=== PATIENT | female | born 2000 | race Caucasian/White ===

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

== ENCOUNTER → 2018-01-10 11:07 | Outpatient (CLI) | payer MEDICAID, SELFPAY ==
[2018-01-10 12:07] LABS: Basophils # 0.1 K/mm3 (0-0.2); Basophils % 0.5 % (0.1-2.0); Eosinophils % 8.7 % (0.1-12.0); Hematocrit 39.6 % (37.0-47.0); Hemoglobin 12.6 g/dL (12.2-16.2); Lymphocytes # 2.7 K/mm3 (0.7-4.5); Lymphocytes % 24.7 K/mm3 (10-50); Mean Corpuscular HGB Conc 31.8 g/dL (31.8-35.4); Mean Corpuscular Hemoglobin 27.6 pg (27.0-31.2); Mean Corpuscular Volume 86.6 fl (81-99); Mean Platelet Volume 7.7 fl (7.4-10.4); Monocytes # 0.4 K/mm3 (0.1-1.0); Monocytes % 3.6 % (1.7-9.3); Neutrophils # 6.8 K/mm3 (1.8-7.8); Neutrophils % 62.5 % (37.0-80.0); Platelet Count 327 K/mm3 (142-424); Red Blood Count 4.57 M/mm3 (4.20-5.40); Red Cell Distribution Width 13.5 % (11.5-17.5); White Blood Count 10.9 K/mm3 (4.5-13.0)
[2018-01-10 12:25] LABS: Carbon Dioxide 24 mmol/L (21.0-32.0); Chloride 105 mmol/L (98-107); Potassium 4.6 mmoL/L (3.5-5.1); Sodium 141 mmol/L (136-145)
[2018-01-10 12:26] LABS: Alanine Aminotransferase 17 U/L (12-78); Albumin Level 4.1 gm/dL (3.4-5.0); Albumin/Globulin Ratio 1.2 (1.1-1.8); Alkaline Phosphatase 73 U/L (46-116); Anion Gap 16.6 mEq/L (5-15); Aspartate Amino Transferase 10 U/L (15-37); Bilirubin,Total 0.2 mg/dL (0.2-1.0); Blood Urea Nitrogen 7 mg/dL (7-18); C-Reactive Protein < 0.2 mg/L (0.0-0.9); Creatinine,Serum 0.73 mg/dL (0.55-1.02); Estimated Glomerular Filt Rate 103 ml/min (>60); GFR (African American) 124 ML/MIN (>60); Globulin 3.4 gm/dl (1.3-3.2); Glucose 92 mg/dL (74-106); Total Protein,Serum 7.5 gm/dL (6.4-8.2)
== END ==
PROVIDERS: Visit Provider Nurse Practitioner Family
DX: R10.9 Unspecified abdominal pain (principal); K92.1 Melena
CPT/HCPCS: 36415; 80053; 85025; 86140

== ENCOUNTER → 2018-01-15 10:00 | Outpatient (CLI) | payer MEDICAID, SELFPAY ==
[2018-01-18 15:01] LABS: Adenovirus F 40/41, stool Not Detected (NotDetected); Astrovirus Not Detected (NotDetected); Campylobacter Not Detected (NotDetected); Cryptosporidium Not Detected (NotDetected); Cyclospora Cayetanesis Not Detected (NotDetected); Entamoeba histolytica Not Detected (NotDetected); Enteroaggregative E coli Not Detected (NotDetected); Enteropathogenic E coli Not Detected (NotDetected); Enterotoxigenic E coli Not Detected (NotDetected); Giardia lamblia Not Detected (NotDetected); Norovirus Not Detected (NotDetected); Plesimonas Shigalloides, PCR Not Detected (NotDetected); Rotavirus A Not Detected (NotDetected); Salmonella, PCR Not Detected (NotDetected); Sapovirus Not Detected (NotDetected); Shiga-like toxin E coli Not Detected (NotDetected); Shigella Enterovasive E coli Not Detected (NotDetected); Vibrio Cholerae Not Detected (NotDetected); Vibrio, PCR Not Detected (NotDetected); Yersinia Entercolitica, PCR Not Detected (NotDetected)
[2018-01-18 15:04] LABS: Clostridium Difficile A/B, PCR Detected (NotDetected)
== END ==
PROVIDERS: Visit Provider Surgery
DX: K92.1 Melena (principal); R10.13 Epigastric pain
CPT/HCPCS: 87507

== ENCOUNTER → 2019-01-09 09:59 | Outpatient (CLI) | payer MEDICAID, SELFPAY | PROVIDERS: Visit Provider Obstetrics & Gynecology | DX: N39.0 Urinary tract infection, site not specified (principal) | CPT/HCPCS: 87086; 87088; 87186 ==

== ENCOUNTER → 2019-01-15 12:47 | Outpatient (CLI) | payer MEDICAID, SELFPAY ==
--- NOTE | 2019-01-15 12:49 | FL_ITS ---
FL voiding cystourethrogram CLINICAL INDICATION: Urinary retention ITS.REASON: retention ORDERING PHYSICIAN: Michael Noe MD PATIENT AGE: 18 years Comparison: None Fluoroscopy time: 1 minute and 14 seconds FINDINGS: Therapy Director exam is shows a longitudinal lucency in the lower pelvic region consistent with a tampon. No renal or pelvic calcifications apparent. Contrast is instilled through a Parrish catheter. Approximately 250 cc of contrast was instilled. Urinary bladder has an unremarkable appearance. There is no evidence of passive reflux. Post void images show no significant post void residual urine. Voiding images show no evidence of vesicoureteral reflux. IMPRESSION: Negative voiding cystourethrogram. No post void residual urine apparent
== END ==
PROVIDERS: PCP Family Medicine; Visit Provider Obstetrics & Gynecology
DX: R33.9 Retention of urine, unspecified (principal)
CPT/HCPCS: 74455

== ENCOUNTER → 2019-03-12 11:30 | Outpatient (CLI) | payer MEDICAID, SELFPAY ==
[2019-03-12 12:04] LABS: Adenovirus F 40/41, stool Not Detected (NotDetected); Astrovirus Not Detected (NotDetected); Campylobacter Not Detected (NotDetected); Cryptosporidium Not Detected (NotDetected); Cyclospora Cayetanesis Not Detected (NotDetected); Entamoeba histolytica Not Detected (NotDetected); Enteroaggregative E coli Not Detected (NotDetected); Enteropathogenic E coli Not Detected (NotDetected); Giardia lamblia Not Detected (NotDetected); Norovirus Not Detected (NotDetected); Plesimonas Shigalloides, PCR Not Detected (NotDetected); Rotavirus A Not Detected (NotDetected); Salmonella, PCR Not Detected (NotDetected); Sapovirus Not Detected (NotDetected); Shiga-like toxin E coli Not Detected (NotDetected); Shigella Enterovasive E coli Not Detected (NotDetected); Vibrio Cholerae Not Detected (NotDetected); Vibrio, PCR Not Detected (NotDetected); Yersinia Entercolitica, PCR Not Detected (NotDetected)
[2019-03-12 14:48] LABS: Clostridium Difficile A/B, PCR Detected (NotDetected); Enterotoxigenic E coli Detected (NotDetected)
== END ==
PROVIDERS: PCP Nurse Practitioner; Visit Provider Nurse Practitioner
DX: R19.7 Diarrhea, unspecified (principal); A04.72 Enterocolitis due to Clostridium difficile, not specified as recurrent
CPT/HCPCS: 87507

== ENCOUNTER → 2019-04-27 19:59 | Outpatient (CLI) | payer MEDICAID, SELFPAY ==
[2019-04-27 20:20] LABS: Adenovirus F 40/41, stool Not Detected (NotDetected); Astrovirus Not Detected (NotDetected); Campylobacter Not Detected (NotDetected); Cryptosporidium Not Detected (NotDetected); Cyclospora Cayetanesis Not Detected (NotDetected); Entamoeba histolytica Not Detected (NotDetected); Enteroaggregative E coli Not Detected (NotDetected); Enteropathogenic E coli Not Detected (NotDetected); Enterotoxigenic E coli Not Detected (NotDetected); Giardia lamblia Not Detected (NotDetected); Norovirus Not Detected (NotDetected); Plesimonas Shigalloides, PCR Not Detected (NotDetected); Rotavirus A Not Detected (NotDetected); Salmonella, PCR Not Detected (NotDetected); Sapovirus Not Detected (NotDetected); Shiga-like toxin E coli Not Detected (NotDetected); Shigella Enterovasive E coli Not Detected (NotDetected); Vibrio Cholerae Not Detected (NotDetected); Vibrio, PCR Not Detected (NotDetected); Yersinia Entercolitica, PCR Not Detected (NotDetected)
[2019-04-27 22:19] LABS: Clostridium Difficile A/B, PCR Detected (NotDetected)
== END ==
PROVIDERS: PCP Nurse Practitioner Family; Visit Provider Nurse Practitioner Family
DX: R19.7 Diarrhea, unspecified (principal); Z86.19 Personal history of other infectious and parasitic diseases
CPT/HCPCS: 87507

== ENCOUNTER → 2019-09-24 11:13 | Outpatient (CLI) | payer OTHER, SELFPAY ==
--- NOTE | 2019-09-24 12:01 | XR_ITS ---
PROCEDURE: XR LUMBAR SPINE MIN 4V CLINICAL INDICATION: LOW BACK PAIN COMPARISON: No exams were available for comparison FINDINGS: There is straightening/reversal of the normal lordosis which may be due to patient positioning or muscle spasm. No fracture or dislocation. The disc spaces are well preserved. No lytic or blastic change. Unremarkable appearing SI joints IMPRESSION: There is straightening/reversal of the normal lordosis which may be due to patient positioning or muscle spasm. Otherwise negative Dictated by: Jakob Price MD 09/24/2019 12:18 Electronically signed by Jakob Price MD in [place] 09/24/2019 12:18
[2019-09-24 12:06] LABS: Basophils # 0.1 K/mm3 (0-0.2); Basophils % 0.4 % (0.1-2.0); Eosinophils # 0.6 K/mm3 (0.0-0.4); Eosinophils % 5.1 % (0.1-12.0); Hematocrit 41.6 % (37.0-47.0); Hemoglobin 13.7 g/dL (12.2-16.2); Lymphocytes # 2.7 K/mm3 (0.7-4.5); Lymphocytes % 25.3 % (10-50); Mean Corpuscular Hemoglobin 30.2 pg (27.0-31.2); Mean Corpuscular Volume 91.6 fl (81-99); Mean Platelet Volume 7.4 fl (7.4-10.4); Monocytes # 0.5 K/mm3 (0.1-1.0); Monocytes % 4.5 % (1.7-9.3); Neutrophils % 64.8 % (37.0-80.0); Platelet Count 307 K/mm3 (142-424); Red Blood Count 4.54 M/mm3 (4.20-5.40); Red Cell Distribution Width 12.5 % (11.5-17.5); White Blood Count 10.8 K/mm3 (4.5-13.0)
[2019-09-24 13:14] LABS: Alanine Aminotransferase 20 U/L (12-78); Albumin Level 4.3 gm/dL (3.4-5.0); Albumin/Globulin Ratio 1.7 (1.1-1.8); Alkaline Phosphatase 67 U/L (46-116); Amylase 41 U/L (25-115); Anion Gap 13.3 mEq/L (5-15); Aspartate Amino Transferase 11 U/L (15-37); Bilirubin,Total 0.4 mg/dL (0.2-1.0); Blood Urea Nitrogen 8 mg/dL (7-18); Calcium 8.8 mg/dL (8.5-10.1); Carbon Dioxide 27 mmol/L (21.0-32.0); Chloride 104 mmol/L (98-107); Creatinine,Serum 0.69 mg/dL (0.55-1.02); Estimated Glomerular Filt Rate 108 ml/min (>60); GFR (African American) 131 ML/MIN (>60); Globulin 2.5 gm/dl (1.3-3.2); Glucose 88 mg/dL (74-106); Lipase 187 u/L (73-393); Potassium 4.3 mmoL/L (3.5-5.1); Sodium 140 mmol/L (136-145); Total Protein,Serum 6.8 gm/dL (6.4-8.2)
[2019-09-26 11:04] LABS: H. pylori Breath Test Negative (Negative)
== END ==
PROVIDERS: PCP Nurse Practitioner Family; Visit Provider Nurse Practitioner Family
DX: R11.0 Nausea (principal); R14.0 Abdominal distension (gaseous)
CPT/HCPCS: 36415; 72110; 80053; 82150; 83013; 83690; 85025

== ENCOUNTER 2019-10-15 13:45 | Outpatient (RCR) | payer OTHER, SELFPAY ==
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
== END 2019-10-15 13:50 | disposition home or self-care (01) ==
LOC: PT 13:45
PROVIDERS: PCP Nurse Practitioner Family; Visit Provider Nurse Practitioner Family
DX: M54.5 Low back pain (principal)
CPT/HCPCS: 97163

== ENCOUNTER 2019-11-23 11:00 | Outpatient (RCR) | payer OTHER, SELFPAY ==
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
== END 2019-11-23 11:57 | disposition home or self-care (01) ==
LOC: PT 11:00
PROVIDERS: PCP Nurse Practitioner Family; Visit Provider Internal Medicine Adolescent Medicine
DX: M62.830 Muscle spasm of back (principal)
CPT/HCPCS: 20560; 97010; 97014; 97110; 97163; G0283

== ENCOUNTER 2020-01-13 14:09 | Emergency (ER) | payer OTHER, SELFPAY ==
--- NOTE | 2020-01-13 14:23 | XR_ITS ---
PROCEDURE: XR KNEE RT 3V CLINICAL INDICATION: INJURY Posttraumatic pain COMPARISON: No exams were available for comparison FINDINGS: No fracture or dislocation. No lytic or blastic change. There is normal mineralization. The joint spaces are well-preserved. No significant degenerative/arthritic changes. No erosive changes evident. Other findings:None. IMPRESSION: No acute findings. Dictated by: Jakob Price MD 01/13/2020 15:02 Electronically signed by Jakob Price MD in [place] 01/13/2020 15:02
[2020-01-13 14:54] VITALS: BP 110/72; PULSE 94; RESP 18; TEMP 36.7; O2SAT 98; BMI 25.4
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
[2020-01-13 15:29] VITALS: BP 110/72; PULSE 94; RESP 18; TEMP 36.7; O2SAT 98
== END 2020-01-13 15:30 | disposition home or self-care (01) ==
LOC: ER 14:15 → UTC 14:18
PROVIDERS: Emergency Provider Nurse Practitioner Family; PCP Internal Medicine Adolescent Medicine
DX: S83.91XA Sprain of unspecified site of right knee, initial encounter (principal); V86.95XA Unspecified occupant of 3- or 4- wheeled all-terrain vehicle (ATV) injured in nontraffic accident, initial encounter; Y92.89 Other specified places as the place of occurrence of the external cause; F41.8 Other specified anxiety disorders; Z88.0 Allergy status to penicillin; Z88.6 Allergy status to analgesic agent
CPT/HCPCS: 29505; 73562; 99202

== ENCOUNTER → 2020-02-21 13:12 | Outpatient (CLI) | payer OTHER, SELFPAY ==
[2020-02-21 14:25] LABS: Basophils # 0.1 K/mm3 (0-0.2); Basophils % 0.4 % (0.1-2.0); Eosinophils # 0.5 K/mm3 (0.0-0.4); Hematocrit 39.9 % (37.0-47.0); Hemoglobin 13.9 g/dL (12.2-16.2); Lymphocytes # 2.8 K/mm3 (0.7-4.5); Lymphocytes % 24.5 % (10-50); Mean Corpuscular HGB Conc 34.9 g/dL (31.8-35.4); Mean Corpuscular Hemoglobin 32.4 pg (27.0-31.2); Mean Corpuscular Volume 92.8 fl (81-99); Mean Platelet Volume 7.4 fl (7.4-10.4); Monocytes # 0.4 K/mm3 (0.1-1.0); Monocytes % 3.6 % (1.7-9.3); Neutrophils # 7.7 K/mm3 (1.8-7.8); Neutrophils % 67.4 % (37.0-80.0); Platelet Count 256 K/mm3 (142-424); Red Cell Distribution Width 12.8 % (11.5-17.5); White Blood Count 11.5 K/mm3 (4.8-10.8)
[2020-02-21 15:48] LABS: Alanine Aminotransferase 26 U/L (12-78); Albumin Level 4.9 g/dl (3.5-5.0); Alkaline Phosphatase 63 U/L (38-126); Anion Gap 11.3 mEq/L (5-15); Aspartate Amino Transferase 27 U/L (14-36); Bilirubin,Total 0.4 mg/dl (0.2-1.3); Blood Urea Nitrogen 8 mg/dl (7-17); Calcium 9.5 mg/dl (8.4-10.2); Carbon Dioxide 24 mmol/L (22.0-30.0); Chloride 104 mmol/L (98-107); Estimated Glomerular Filt Rate 106 ml/min (>60); GFR (African American) 128 ML/MIN (>60); Globulin 2.5 g/dL (1.3-3.2); Glucose 104 mg/dl (74-100); Lipase 101 U/L (23-300); Potassium 4.3 mmoL/L (3.5-5.1); Sodium 135 mmol/L (136-145); Total Protein,Serum 7.4 g/dl (6.3-8.2)
== END ==
PROVIDERS: Visit Provider Internal Medicine Adolescent Medicine
DX: R10.9 Unspecified abdominal pain (principal)
CPT/HCPCS: 36415; 80053; 83690; 85025

== ENCOUNTER → 2020-02-22 12:47 | Outpatient (CLI) | payer OTHER, SELFPAY ==
[2020-02-22 13:53] LABS: Occult Blood,Stool Positive (Negative)
[2020-02-26 09:53] LABS: H. pylori Stool Ag, EIA Negative (Negative)
== END ==
PROVIDERS: Visit Provider Internal Medicine Adolescent Medicine
DX: R10.9 Unspecified abdominal pain (principal)
CPT/HCPCS: 82272; 87338; G0328

== ENCOUNTER 2020-02-28 19:42 | Observation (INO) | payer OTHER, SELFPAY ==
[2020-02-28 19:53] VITALS: BP 153/73; PULSE 126; RESP 22; TEMP 37.4; O2SAT 100; BMI 23.4
[2020-02-28 20:05] LABS: Microscopic, Urine URINE MICROSCOPIC (MICROSCOPIC)
[2020-02-28 20:12] LABS: Appearance,Urine CLEAR (Clear); Bilirubin,Urine Negative (Negative); Blood, Urine Negative (Negative); Chloride 104 mmol/L (98-107); Color,Urine YELLOW (Yellow); Glucose,Urine (UA) Negative (Negative); Ketones,Urine Negative (Negative); Leukocyte Esterase,Urine Negative (Negative); Nitrate,Urine Negative (Negative); Potassium 3.6 mmoL/L (3.5-5.1); Protein,Urine Negative (Negative); Sodium 139 mmol/L (136-145); Specific Gravity, Urine 1.015 (1.005-1.030); Urobilinogen,Urine 0.2 EU/dl (0.2)
[2020-02-28 20:13] LABS: Basophils # 0.1 K/mm3 (0-0.2); Basophils % 0.3 % (0.1-2.0); Eosinophils # 0.4 K/mm3 (0.0-0.4); Eosinophils % 1.8 % (0.1-12.0); Hematocrit 45.5 % (37.0-47.0); Hemoglobin 15.4 g/dL (12.2-16.2); Lymphocytes # 3.3 K/mm3 (0.7-4.5); Lymphocytes % 14.7 % (10-50); Mean Corpuscular HGB Conc 33.9 g/dL (31.8-35.4); Mean Corpuscular Hemoglobin 31.7 pg (27.0-31.2); Mean Corpuscular Volume 93.4 fl (81-99); Mean Platelet Volume 7.3 fl (7.4-10.4); Monocytes # 0.9 K/mm3 (0.1-1.0); Monocytes % 4.1 % (1.7-9.3); Neutrophils # 17.8 K/mm3 (1.8-7.8); Neutrophils % 79.1 % (37.0-80.0); Platelet Count 324 K/mm3 (142-424); Red Blood Count 4.87 M/mm3 (4.20-5.40); Red Cell Distribution Width 12.9 % (11.5-17.5); White Blood Count 22.5 K/mm3 (4.8-10.8)
[2020-02-28 20:15] LABS: Alanine Aminotransferase 121 U/L (12-78); Alkaline Phosphatase 83 U/L (38-126); Amylase 69 U/L (30-110); Anion Gap 12.6 mEq/L (5-15); Aspartate Amino Transferase 203 U/L (14-36); Bilirubin,Total 0.7 mg/dl (0.2-1.3); Blood Urea Nitrogen 10 mg/dl (7-17); Calcium 9.5 mg/dl (8.4-10.2); Carbon Dioxide 26 mmol/L (22.0-30.0); Creatinine Clearance Estimated 112 mL/min (50-200); Estimated Glomerular Filt Rate 91 ml/min (>60); GFR (African American) 110 ML/MIN (>60); Glucose 107 mg/dl (74-100); Lipase 176 U/L (23-300); Urine Pregnancy, HCG Qual. Negative (Negative)
[2020-02-28 20:16] LABS: Albumin/Globulin Ratio 1.6 (1.1-1.8); Globulin 3.2 g/dL (1.3-3.2); Total Protein,Serum 8.2 g/dl (6.3-8.2)
[2020-02-28 20:17] LABS: MANUAL DIFFERENTIAL MANUAL DIFFERENTIAL (MANUAL DIFF)
[2020-02-28 20:24] LABS: Amphetamine/Metha Screen,Urine Negative ng/ml (<1000); Benzodiazepines Screen,Urine Negative ng/ml (<200)
[2020-02-28 20:25] LABS: Barbiturates Screen,Urine Negative ng/ml (<200)
[2020-02-28 20:26] LABS: Cannabinoid Screen,Urine Negative ng/ml (<50); Cocaine Screen,Urine Negative ng/ml (<300)
[2020-02-28 20:27] LABS: Methadone Screen,Urine Negative ng/ml (<300)
--- NOTE | 2020-02-28 20:27 | CT_ITS ---
PROCEDURE: CT ABDOMEN PELVIS W CON CLINICAL INDICATION: mid uppergatric pain Mid upper abdominal pain with diarrhea COMPARISON: ABDPELW CT ABD PELVIS W/ CONTRAST from 12/15/2016 US ABDOMEN LIMITED from 02/28/2020 TECHNIQUE: IV Contrast: 75ML OPTIRAY 350 Oral Contrast none Axial images obtained with sagittal and coronal reformats. All CT scans at the facility use one or more dose reduction, viz: automated exposure control, ma/kV adjustment per patient size (including targeted exams where dose is matched to indication, i.e. head), or iterative reconstruction technique. FINDINGS: LOWER THORAX: No acute finding ABDOMEN & PELVIS: The liver, spleen, adrenal glands, pancreas, and kidneys have an unremarkable appearance. There is gallbladder wall thickening versus pericholecystic fluid. There is enhancement of the gallbladder wall. There is a small irregular focus along the gallbladder wall anteriorly nonspecific. Common hepatic duct is slightly prominent upper normal at 6 mm. No intestinal obstruction or free air. No evidence of appendicitis. There is scattered small nodes in the abdomen which are nonspecific there is cystic lesion in the right adnexa measuring 5.1 by 3 cm. There is a small amount fluid in the cul-de-sac. No acute bony anomalies. IMPRESSION: 1. Gallbladder wall thickening and/or pericholecystic fluid with mural enhancement and minimal irregularity of the gallbladder wall with common hepatic duct upper normal at 6 mm. Consider gallbladder ultrasound for further evaluation. 2. Cystic right adnexal lesion at 5 cm consistent with ovarian cyst Dictated by: Jakob Price MD 02/29/2020 06:00 Electronically signed by Jakob Price MD in [place] 02/29/2020 06:00
[2020-02-28 20:28] LABS: Opiate Screen,Urine Negative ng/ml (<300); Phencyclidine Screen,Urine Negative ng/ml (<25)
--- NOTE | 2020-02-28 20:31 | HMH.EDABDPAI ---
ED Disposition Clinical Impression: Gastroenteritis, Esophageal reflux disease, Choledocholithiasis Disposition: Admitted as Observation Condition on Discharge: Good - Critical Care Critical Care Time: No Attestation: On 02/28/20, the high probability of a clinically significant, sudden or life threatening deterioration of the following system(s) required my full and direct attention, intervention and personal management. The time I documented below is in addition to time spent performing reported procedures but includes the following listed in this critical care notation. Medical Decision Making - Medical Records Medical records reviewed: Yes: I reviewed the patient's medical records. - Naun Inquiry Pt receiving controlled substance: No Vital Signs: 02/28/20 19:53 02/28/20 21:00 02/28/20 22:03 Temperature 99.4 F Temperature Source Oral Pulse Rate Pulse Rate [Right] 126 H 110 H 105 H Respiratory Rate 22 16 16 Blood Pressure Blood Pressure [Right Arm] 153/73 H 147/68 H 132/71 Blood Pressure Mean [Right Arm] 99 94 91 Blood Pressure Source [Right Arm] Automatic Cuff Automatic Cuff Automatic Cuff Blood Pressure Position Blood Pressure Position [Right Arm] Sitting Sitting Sitting 02 Sat by Pulse Oximetry 100 100 99 Oxygen Delivery Method Room Air Room Air Room Air 02/28/20 22:46 02/28/20 23:19 02/28/20 23:20 Temperature 99.2 F 99.2 F Temperature Source Oral Oral Pulse Rate 75 Pulse Rate [Right] 97 H 75 Respiratory Rate 16 16 16 Blood Pressure 118/40 L Blood Pressure [Right Arm] 138/71 118/40 L Blood Pressure Mean [Right Arm] 93 66 Blood Pressure Source [Right Arm] Automatic Cuff Automatic Cuff Blood Pressure Position Supine Blood Pressure Position [Right Arm] Sitting Supine 02 Sat by Pulse Oximetry 98 100 Oxygen Delivery Method Room Air Room Air Room Air - Lab Data Lab results reviewed: Yes: I reviewed the patient's lab results. Lab Results 02/28/20 19:55: Urine Color Yellow, Urine Appearance Clear, Urine pH 7.0, Ur Specific [place] 1.015, Urine Protein Negative, Urine Glucose (UA) Negative, Urine Ketones Negative, Urine Blood Negative, Urine Nitrate Negative, Urine Bilirubin Negative, Urine Urobilinogen 0.2, Ur Leukocyte Esterase Negative, Urine WBC Occasional, Ur Squamous Epith Cells 3-5, Urine Bacteria Trace 02/28/20 19:55: WBC 22.5 H*, RBC 4.87, Hgb 15.4, Hct 45.5, MCV 93.4, MCH 31.7 H, MCHC 33.9, RDW 12.9, Plt Count 324, MPV 7.3 L, Neut % (Auto) 79.1, Lymph % (Auto) 14.7, [place] % (Auto) 4.1, Eos % (Auto) 1.8, Baso % (Auto) 0.3, Neut # (Auto) 17.8 H, Lymph # (Auto) 3.3, [place] # (Auto) 0.9, Eos # (Auto) 0.4, Baso # (Auto) 0.1, Total Counted 100, Neutrophils % (Manual) 71, Lymphocytes % (Manual) 27, Monocytes % (Manual) 1 L, Eosinophils % (Manual) 1, Platelet Estimate Normal, RBC Morphology Normal 02/28/20 19:55: Sodium 139, Potassium 3.6, Chloride 104, Carbon Dioxide 26, Anion Gap 12.6, BUN 10, Creatinine 0.80, Estimated Creat Clear 112, Estimated GFR 91, Est GFR ( Amer) 110, Glucose 107 H, Calcium 9.5, Total Bilirubin 0.7, AST 203 H, ALT 121 H, Alkaline Phosphatase 83, Total Protein 8.2, Albumin 5.0, Globulin 3.2, Albumin/Globulin Ratio 1.6, Amylase 69, Lipase 176 02/28/20 19:55: Urine Opiates Screen Negative, Urine Methadone Screen Negative, Ur Barbituates Screen Negative, Ur Phencyclidine Scrn Negative, Ur Amphetamines Screen Negative, U Benzodiazepines Scrn Negative, Urine Cocaine Screen Negative, U Marijuana (THC) Screen Negative 02/28/20 19:55: Urine HCG, Qual Negative 02/28/20 21:00: Lactate 1.0 Result diagrams: 02/28/20 19:55 02/28/20 19:55 Orders (Tests/Meds): ED MEDICATIONS Generic Name Dose Route Start Last Admin Trade Name Freq PRN Reason Stop Dose Admin Sodium Chloride 1,000 mls @ 999 mls/hr 02/28/20 20:30 02/28/20 20:40 Sod Chlor 0.9% 1000ml Bag IV 02/28/20 21:30 999 mls/hr .Q1H1M KATARINA Administration Pantoprazole Sodium 80 mg/ 100 mls @ 10
[2020-02-28 20:33] LABS: Bacteria,Urine Trace /lpf; WBC,Urine Occasional #/hpf (0-3)
[2020-02-28 20:51] LABS: Eosinophils % 1 % (0-3); Lymphocytes % 27 % (10-50); Monocytes % 1 % (2-9); Neutrophils % 71 % (42-76); Platelet Estimate Normal; RBC Morphology Normal; Total Cells Counted 100
[2020-02-28 21:00] VITALS: BP 147/68; PULSE 110; RESP 16; O2SAT 100
[2020-02-28 22:03] VITALS: BP 132/71; PULSE 105; RESP 16; O2SAT 99
--- NOTE | 2020-02-28 22:16 | US_ITS ---
PROCEDURE: US ABDOMEN LIMITED CLINICAL INDICATION: RUQ abd pain COMPARISON: CT ABDOMEN PELVIS W CON from 02/28/2020 FINDINGS: PANCREAS: Unremarkable. No obvious mass or abnormal fluid collection. No ductal dilatation LIVER: No focal liver lesions demonstrated. Homogeneous echogenicity. No intrahepatic biliary ductal dilatation evident. There is appropriate direction of blood flow within a non dilated portal vein RIGHT KIDNEY: Unremarkable. Normal size and echogenicity. No hydronephrosis GALLBLADDER: Gallbladder wall is thickened measuring up to 5 mm with minimal pericholecystic fluid. No gallstones are apparent. Common bile duct is upper normal at 6 mm.. IMPRESSION: Mild gallbladder wall thickening with minimal pericholecystic fluid. No obvious gallstones. Common bile duct upper normal at 6 mm Dictated by: Jakob Price MD 02/29/2020 06:02 Electronically signed by Jakob Price MD in [place] 02/29/2020 06:02
[2020-02-28 22:46] VITALS: BP 138/71; PULSE 97; RESP 16; O2SAT 98
--- NOTE | 2020-02-28 22:59 | PC.NURSE ---
Dr Estes speaking with Dr Cox for consult
[2020-02-28 23:19] VITALS: BP 118/40; PULSE 75; RESP 16; TEMP 37.3; O2SAT 100
[2020-02-28 23:20] VITALS: BP 118/40; PULSE 75; RESP 16; TEMP 37.3; O2SAT 100
[2020-02-28 23:26] LABS: Coronavirus 19 IgG Antibody Negative (Negative); Coronavirus 19 IgM Antibody Negative (Negative)
[2020-02-29] VITALS (27 sets, daily range): BP systolic 93–126; BP diastolic 48–90; PULSE 69–106; RESP 14–18; TEMP 36.4–43; O2SAT 96–100; BMI 23.4; BMI 23.5
--- NOTE | 2020-02-29 00:07 | PC.NURSE ---
Addendum entered by Ayse Lynch CNA 02/29/20 02:56: CORRECTION- PT ARRIVED TO THE FLOOR @ 0004 Original Note: PT ARRIVED TO THE FLOOR VIA W/C FROM ED @ 1345. .
--- NOTE | 2020-02-29 02:43 | PC.NURSE ---
She is NPO at this time. Currently asleep but previously received PRN medication for mid-epigastric pain. She reported nausea but denied vomiting. No BM this shift.
[2020-02-29 06:34] LABS: Basophils # 0.1 K/mm3 (0-0.2); Basophils % 0.4 % (0.1-2.0)
[2020-02-29 06:36] LABS: Chloride 107 mmol/L (98-107); Potassium 4.3 mmoL/L (3.5-5.1); Sodium 136 mmol/L (136-145)
[2020-02-29 06:39] LABS: Alanine Aminotransferase 196 U/L (12-78); Albumin Level 4.2 g/dl (3.5-5.0); Albumin/Globulin Ratio 1.7 (1.1-1.8); Alkaline Phosphatase 79 U/L (38-126); Anion Gap 9.3 mEq/L (5-15); Aspartate Amino Transferase 168 U/L (14-36); Bilirubin,Total 0.7 mg/dl (0.2-1.3); Blood Urea Nitrogen 10 mg/dl (7-17); Carbon Dioxide 24 mmol/L (22.0-30.0); Creatinine Clearance Estimated 112 mL/min (50-200); Estimated Glomerular Filt Rate 91 ml/min (>60); GFR (African American) 110 ML/MIN (>60); Globulin 2.5 g/dL (1.3-3.2); Glucose 94 mg/dl (74-100); Total Protein,Serum 6.7 g/dl (6.3-8.2)
[2020-02-29 06:43] LABS: Eosinophils # 0.5 K/mm3 (0.0-0.4); Eosinophils % 3.2 % (0.1-12.0); Hematocrit 39.5 % (37.0-47.0); Lymphocytes # 2.9 K/mm3 (0.7-4.5); Lymphocytes % 19.5 % (10-50); Mean Corpuscular HGB Conc 33.8 g/dL (31.8-35.4); Mean Corpuscular Hemoglobin 31.8 pg (27.0-31.2); Mean Corpuscular Volume 94.1 fl (81-99); Mean Platelet Volume 7.4 fl (7.4-10.4); Monocytes # 0.6 K/mm3 (0.1-1.0); Monocytes % 4.1 % (1.7-9.3); Neutrophils % 72.8 % (37.0-80.0); Platelet Count 276 K/mm3 (142-424); Red Blood Count 4.19 M/mm3 (4.20-5.40); Red Cell Distribution Width 12.7 % (11.5-17.5); White Blood Count 15.1 K/mm3 (4.8-10.8)
[2020-02-29 06:52] LABS: Calcium 8.3 mg/dl (8.4-10.2)
[2020-02-29 06:53] LABS: Hemoglobin 13.4 g/dL (12.2-16.2)
[2020-02-29 06:55] LABS: MANUAL DIFFERENTIAL MANUAL DIFFERENTIAL (MANUAL DIFF)
--- NOTE | 2020-02-29 06:58 | HMH.HP ---
*Admission Date: 02/29/20 *Chief complaint: Upper abdominal pain *History of present illness: This is a 19-year-old female who presents emergency department late yesterday evening with increasing upper abdominal pain. Her pain is mostly in the epigastric region. Some nausea. No fevers. No jaundice. Evaluation in the emergency department included a CT scan followed by right upper quadrant ultrasound confirming changes consistent with acute cholecystitis. No obvious stones were noted. Her white blood cell count was also notably elevated and she was admitted for IV antibiotics and surgical evaluation/management. [facility] History Medical History: Reports:: Anxiety, Depression Denies:: Cancer, Diabetes Mellitus Type 1, Diabetes Mellitus Type 2, Hypertension, Internal Pacemaker, MRSA, Seizures *Have you ever received a pneumonia vaccine?: Yes *Have you received a flu vaccine this season?: No Other Medical History: Reports: Other. Denies: Blood Transfusion Reaction Laterality Cases: Bilateral: Myringotomy (Ear Tubes), Tonsillectomy Other Surgeries: Yes: No Previous Surgery, , Other. No: Pacemaker Amputation: No Fractures: No - *Social History Educational Level: Completed High School Smoking Status: Former smoker Tobacco Type: cigarettes # Packs/Day (cigarettes): 1 #Yrs smoked (if former smoker): 20 Alcohol Intake: never Alcohol Intake Frequency:: other Substance Use Type: denies use *Occupational Status:: unemployed Housing: house Household Members: spouse *Travel in the last 8 weeks: None - Psychiatric History Pschychiatric History:: Reports:: Anxiety, Bipolar Disorder, Depression Family Hx:: Cancer, Diabetes, Heart Attack, Hyperlipidemia, Hypertension, Stroke, Thyroid Disorder, Substance abuse, Alcoholism, Mental illness Review of Systems - Constitutional Denies chills - Eyes Denies change in vision - ENT Denies dizziness - *Cardiovascular Denies chest pain - *Respiratory Denies cough - *Gastrointestinal Reports abdominal pain, Reports nausea - *Genitourinary Denies abnormal vaginal bleeding, Denies difficulty urinating - *Musculoskeletal Denies joint pain - Integumentary/Breasts Denies changing lesions - *Neurologic Denies abnormal hearing - Psychiatric Denies anxiety - Endocrine Denies cold intolerance - Hematologic/Lymphatic Denies easy bleeding - Allergic/Immunologic Denies GI upset with certain foods Meds Home Medications Medication Instructions Recorded Confirmed Type ARIPiprazole [Abilify 20mg Tablet] 20 mg PO DAILY 02/28/20 02/29/20 History Mirtazapine [Remeron 15mg tablet] 15 mg PO HS 02/28/20 02/29/20 History Omeprazole [Omeprazole 20mg Tab] 20 mg PO DAILY 02/28/20 02/29/20 History Sertraline HCl [Zoloft] 50 mg PO DAILY 02/28/20 02/29/20 History Allergies Allergy/AdvReac Type Severity Reaction Status Date / Time penicillin G [PENICILLIN G] Allergy Intermediate Hives Verified 02/29/20 00:38 ibuprofen [From MOTRIN] Allergy Mild I-HIVES Verified 02/29/20 00:38 Exam Vital signs and Labs for Last 24 Hours: Temp Pulse Resp BP Pulse Ox 98.2 F 83 16 113/70 99 02/29/20 03:45 02/29/20 03:45 02/29/20 03:45 02/29/20 03:45 02/29/20 03:45 Laboratory Results - last 24 hr 02/28/20 19:55: Urine Color Yellow, Urine Appearance Clear, Urine pH 7.0, Ur Specific [place] 1.015, Urine Protein Negative, Urine Glucose (UA) Negative, Urine Ketones Negative, Urine Blood Negative, Urine Nitrate Negative, Urine Bilirubin Negative, Urine Urobilinogen 0.2, Ur Leukocyte Esterase Negative, Urine WBC Occasional, Ur Squamous Epith Cells 3-5, Urine Bacteria Trace 02/28/20 19:55: WBC 22.5 H*, RBC 4.87, Hgb 15.4, Hct 45.5, MCV 93.4, MCH 31.7 H, MCHC 33.9, RDW 12.9, Plt Count 324, MPV 7.3 L, Neut % (Auto) 79.1, Lymph % (Auto) 14.7, [place] % (Auto) 4.1, Eos % (Auto) 1.8, Baso % (Auto) 0.3, Neut # (Auto) 17.8 H, Lymph # (Auto) 3.3, [place] # (Auto) 0.9, Eos # (Auto) 0.4, Baso # (Auto
--- NOTE | 2020-02-29 07:26 | P.CONPHA_ITS ---
[facility] Pharmacy VTE Monitoring - Patient Demographics Admission date: 02/28/20 Report Date: 02/29/20 Time: 07:26 Allergies/Adverse Reactions: Patient Allergies penicillin G [PENICILLIN G] Allergy (Intermediate, Verified 02/29/20 00:38) Hives ibuprofen [From MOTRIN] Allergy (Mild, Verified 02/29/20 00:38) I-HIVES Height: 1.65 m Weight: 63.957 kg Patient Problems: Current Active Problems Gastroenteritis (Acute) Esophageal reflux disease (Acute) Choledocholithiasis (Acute) Cholecystitis (Acute) - VTE Risk Labs: VTE Related Lab Results Hgb 13.4 g/dL (12.2-16.2) D 02/29/20 06:08 Hct 39.5 % (37.0-47.0) 02/29/20 06:08 Plt Count 276 K/mm3 (142-424) 02/29/20 06:08 BUN 10 mg/dl (7-17) 02/29/20 06:08 Creatinine 0.80 mg/dl (0.52-1.04) 02/29/20 06:08 Estimated Creat Clear 112 mL/min (50-200) 02/29/20 06:08 Was VTE Risk Assessment Performed: Yes VTE Score: 0 VTE Risk Level: Very Low Risk - Prophylaxis VTE Prophylaxis Ordered?: Yes Types of VTE Prophylaxis: TEDS Knee High Location of Applied Device: Bilateral Lower Extremeties - VTE Diagnosis Confirmed Treatment or plan recommended: Continue Current Treatment
[2020-02-29 07:58] LABS: Eosinophils % 2 % (0-3); Lymphocytes % 20 % (10-50); Monocytes % 4 % (2-9); Neutrophils % 74 % (42-76); Platelet Estimate Normal; RBC Morphology Normal; Total Cells Counted 100
--- NOTE | 2020-02-29 09:36 | HMH.PHAINT ---
MEDICATION RECONCILIATION COMPLETED ON PATIENT USING EXTERNAL FILL HISTORY FROM PHARMACY, PATIENT INTERVIEW, AND LIST FROM MD OFFICE. -NATALIA PIPERD
--- NOTE | 2020-02-29 10:41 | PC.NURSE ---
PT OFF FLOOR WITH SURGERY STAFF.
--- NOTE | 2020-02-29 11:49 | P.PN_ITS ---
[facility] Anesthesia Checklist - Patient Identification Patient Identification: Arm Band - Structural Data Admitted From: Home Planned Operative Procedure/s: laparoscopic cholecystectomy Consent for Planned Operative Procedure(s) Verified: Yes Verified Documents: Surgical Consent, History and Physical - NPO Status Verified Time NPO: 00:00 - Additional verifications Anesthesia Reactions: No Hx Blood Transfusions: No Blood Transfusion Reaction: No - Airway Assessment C-Spine Mobility Assessed: Yes (mp2) TMJ Mobility Assessed: Yes - Neurological Assessment Level of Consciousness: Awake, Alert - Anesthesia Plan Anesthesia Risk discussed: Yes Anesthesia Plan: Verified ASA Class: II Anesthesia Type: General [facility] History I have reviewed the patient's past medical history: Yes Medical History: Reports:: Anxiety, Depression Denies:: Cancer, Diabetes Mellitus Type 1, Diabetes Mellitus Type 2, Hypertension, Internal Pacemaker, MRSA, Seizures *Have you ever received a pneumonia vaccine?: Yes *Have you received a flu vaccine this season?: No Other Medical History: Reports: Other. Denies: Blood Transfusion Reaction Anesthesia experience/problems:: nac Laterality Cases: Bilateral: Myringotomy (Ear Tubes), Tonsillectomy Other Surgeries: Yes: , Other. No: Pacemaker Amputation: No Fractures: No - *Social History Educational Level: Completed High School Smoking Status: Former smoker Tobacco Type: cigarettes # Packs/Day (cigarettes): 1 #Yrs smoked (if former smoker): 20 Alcohol Intake: never Alcohol Intake Frequency:: other Substance Use Type: denies use *Occupational Status:: unemployed Housing: house Household Members: spouse *Travel in the last 8 weeks: None - Psychiatric History Pschychiatric History:: Reports:: Anxiety, Bipolar Disorder, Depression Family Hx:: Cancer, Diabetes, Heart Attack, Hyperlipidemia, Hypertension, Stroke, Thyroid Disorder, Substance abuse, Alcoholism, Mental illness
--- NOTE | 2020-02-29 12:19 | HMH.OPNOTE ---
Date of procedure: 02/29/20 Pre-op Diagnosis:: Acute cholecystitis Post-op Diagnosis:: Same Procedure performed:: Laparoscopic cholecystectomy Surgeon:: Jonas Bethea MD PROPERTY PRESERVATION SPECIALIST:: Tristan Monge Anesthesia: GINA Estimated blood loss (mL): 15 Operative findings:: Mild to moderate gallbladder distention Moderate wall thickening Inflammatory response with mild to moderate weeping Operative note:: After informed consent was obtained, the patient was taken to the operating room and placed in the supine position. General anesthesia was induced and the abdomen was prepped and draped in a sterile fashion. After infiltration with local anesthetic an infraumbilical incision was made. A Veress needle was placed in position. The abdomen was insufflated. A 5 mm optical trocar was placed in position. Under direct visualization, a 12 mm trocar was placed in the subxiphoid position and 2 additional 5 mm trocars were placed in the right upper quadrant. The gallbladder was elevated up and over the liver margin. The tissue around the cystic duct was carefully dissected. 3 clips were placed proximally and the duct was transected with harmonic noe. Harmonic noe were then utilized to dissect the gallbladder away from the liver margin with careful attention to the control of the cystic artery. The gallbladder was placed in a retrieval bag and removed through the subxiphoid trocar site. The right upper quadrant was thoroughly irrigated. No active bleeding or bile leak was noted. Fascia at the subxiphoid trocar site was reapproximated utilizing 0 Ethibond. The remaining trocars were removed. All wounds were irrigated and skin was closed with 4-0 Monocryl in a subcuticular fashion. Steri-Strips were applied. The patient's anesthetic agents were reversed and extubation was completed prior to transfer to recovery in stable condition. Condition: stable Disposition: PACU Specimens:: Gallbladder and contents Complications:: No immediate
--- NOTE | 2020-02-29 12:30 | P.PN_ITS ---
[facility] Anesthesia Record Part I Intake, IV Amount: 1,000 Estimated blood loss (mL): 15 Urine output (mL): 0 Blood Pressure: 104/54 SaO2: 96 Pulse Rate: 81 Respiratory Rate: 16 Temperature: 97.5 F Patient is:: Drowsy, Stable Stable to PACU at:: 12:25
--- NOTE | 2020-02-29 18:22 | PC.NURSE ---
pt has done ok since surgery. dressings are clean and dry and have old drainage noted. pt has c/o pain t/o shift with acceptable relief from prn pain medication. pt has tolerated diet well. no c/o nausea. vss. will cont. to monitor.
--- NOTE | 2020-02-29 19:10 | PC.NURSE ---
report given to claribel
--- NOTE | 2020-02-29 20:10 | P.PN_ITS ---
[facility] Anesthesia Record Part II Discharge Time: 13:14 Destination: Medical Surgical Department PACU nurse assessment reviewed?: Yes Patient Condition:: Good Anesthesia Complications:: None Swallowing reflex intact?: Yes Cyanosis?: No Blood Pressure: 113/54 Pulse Rate: 92 Temperature: 97.5 F Mental Status: Alert & Oriented Pain level:: 5 Nausea and/or vomitting:: None Intake, IV Amount: 0
--- NOTE | 2020-02-29 21:57 | PC.NURSE ---
Assessment completed. Lungs CTA, Heart at RRR. Bowels sounds present X4 Quads. Telfa and tegaderm x4 on abdomen C/D/I. No edema noted. Pt. passing flatus and burping. Pt. c/o pain at incision sites rated 8/10 and pain in her neck that is relieved after burping, but occurs frequently. Pain medication given, see EMAR. Pt. denies needs, will continue to monitor.
--- NOTE | 2020-02-29 22:45 | PC.NURSE ---
Pt. back to bed after shower. Pt. tolerated shower well. Clean linens in place on bed Pt. reports pain in neck is back but incisional pain is better and pt. is having trouble belching. Pt. requests medication for gas pain. None ordered nurse informed pt. she can notify . Pt. v/u and denies further needs
[2020-03-01] VITALS: BP 106/68; PULSE 81; RESP 18; TEMP 36.8; O2SAT 98
--- NOTE | 2020-03-01 03:10 | PC.NURSE ---
Reassment completed. No acute changes from last assessment. Lungs CTA, Heart at RRR. Bowel sounds present x4 quadrants. Telfa and tegaderm X4 C/D/I. no new drainage noted. Pt. rates incisional pain at 8/10. Pt. denies neck pain. See EMAR for medications. Pt. denies further needs, will continue to monitor.
[2020-03-01 04:00] VITALS: BP 114/56; PULSE 91; RESP 18; TEMP 37.1; O2SAT 100
[2020-03-01 05:00] VITALS: BMI 23.9
[2020-03-01 06:58] LABS: Basophils % 0.1 % (0.1-2.0); Eosinophils # 0.3 K/mm3 (0.0-0.4); Eosinophils % 1.2 % (0.1-12.0); Hematocrit 35.2 % (37.0-47.0); Hemoglobin 12.2 g/dL (12.2-16.2); Lymphocytes # 2.2 K/mm3 (0.7-4.5); Lymphocytes % 10.8 % (10-50); Mean Corpuscular HGB Conc 34.6 g/dL (31.8-35.4); Mean Corpuscular Hemoglobin 31.4 pg (27.0-31.2); Mean Corpuscular Volume 90.7 fl (81-99); Mean Platelet Volume 8.2 fl (7.4-10.4); Monocytes # 0.6 K/mm3 (0.1-1.0); Monocytes % 2.9 % (1.7-9.3); Neutrophils # 17.6 K/mm3 (1.8-7.8); Neutrophils % 84.9 % (37.0-80.0); Platelet Count 268 K/mm3 (142-424); Red Blood Count 3.88 M/mm3 (4.20-5.40); Red Cell Distribution Width 12.9 % (11.5-17.5); White Blood Count 20.8 K/mm3 (4.8-10.8)
[2020-03-01 07:03] LABS: Chloride 107 mmol/L (98-107); Sodium 137 mmol/L (136-145)
[2020-03-01 07:04] LABS: Potassium 3.9 mmoL/L (3.5-5.1)
[2020-03-01 07:06] LABS: Alanine Aminotransferase 148 U/L (12-78); Albumin Level 3.8 g/dl (3.5-5.0); Albumin/Globulin Ratio 1.6 (1.1-1.8); Alkaline Phosphatase 73 U/L (38-126); Anion Gap 10.9 mEq/L (5-15); Aspartate Amino Transferase 69 U/L (14-36); Bilirubin,Total 0.3 mg/dl (0.2-1.3); Blood Urea Nitrogen 6 mg/dl (7-17); Calcium 8.2 mg/dl (8.4-10.2); Carbon Dioxide 23 mmol/L (22.0-30.0); Creatinine Clearance Estimated 152 mL/min (50-200); Estimated Glomerular Filt Rate 126 ml/min (>60); GFR (African American) 153 ML/MIN (>60); Globulin 2.4 g/dL (1.3-3.2); Glucose 181 mg/dl (74-100); Total Protein,Serum 6.2 g/dl (6.3-8.2)
[2020-03-01 07:13] LABS: MANUAL DIFFERENTIAL MANUAL DIFFERENTIAL (MANUAL DIFF)
[2020-03-01 07:31] LABS: Hep A Ab, IgM Negative (Negative); Hepatitis B Core Antibody IgM Negative (Negative); Hepatitis B Surface Antigen Negative (Negative)
[2020-03-01 07:33] VITALS: O2SAT 100
[2020-03-01 07:53] LABS: Lymphocytes % 20 % (10-50); Monocytes % 3 % (2-9); Neutrophils % 77 % (42-76); Platelet Estimate Normal; RBC Morphology Normal; Total Cells Counted 100
[2020-03-01 08:00] VITALS: BP 108/55; PULSE 82; RESP 14; TEMP 36.7; O2SAT 97
--- NOTE | 2020-03-01 09:10 | HMH.GSPN ---
Subjective Patient reports: feels better Narrative: Patient tearful this morning because she adamantly wants to go home. She states that she feels much better and wants to go home. She has been tolerating a bland diet without difficulty. Exam Vital signs and Labs for Last 24 Hours: Temp Pulse Resp BP Pulse Ox 98.0 F 82 14 108/55 L 97 03/01/20 08:00 03/01/20 08:00 03/01/20 08:00 03/01/20 08:00 03/01/20 08:00 Laboratory Results - last 24 hr 03/01/20 06:30: WBC 20.8 H* D, RBC 3.88 L, Hgb 12.2, Hct 35.2 L, MCV 90.7, MCH 31.4 H, MCHC 34.6, RDW 12.9, Plt Count 268, MPV 8.2, Neut % (Auto) 84.9 H, Lymph % (Auto) 10.8, [place] % (Auto) 2.9, Eos % (Auto) 1.2, Baso % (Auto) 0.1, Neut # (Auto) 17.6 H, Lymph # (Auto) 2.2, [place] # (Auto) 0.6, Eos # (Auto) 0.3, Baso # (Auto) 0.0, Total Counted 100, Neutrophils % (Manual) 77 H, Lymphocytes % (Manual) 20, Monocytes % (Manual) 3, Platelet Estimate Normal, RBC Morphology Normal 03/01/20 06:30: Sodium 137, Potassium 3.9, Chloride 107, Carbon Dioxide 23, Anion Gap 10.9, BUN 6 L D, Creatinine 0.60 D, Estimated Creat Clear 152, Estimated GFR 126, Est GFR ( Amer) 153 D, Glucose 181 H, Calcium 8.2 L, Total Bilirubin 0.3, AST 69 H D, ALT 148 H, Alkaline Phosphatase 73, Total Protein 6.2 L, Albumin 3.8, Globulin 2.4, Albumin/Globulin Ratio 1.6 I & O for Last 24 hours: Intake & Output 02/27/20 02/28/20 02/29/20 03/01/20 11:59 11:59 11:59 11:59 Intake Total 1095 / 1095 2260 / 2260 Balance 1095 / 1095 2260 / 2260 Weight 141 lb 143 lb 9 oz - *Routine Abdominal Exam Present: soft Progress Note: A&P (1) Cholecystitis Status: Acute Current Visit: Yes Assessment and Plan for All Diagnoses:: Discharge home with additional 5 days of oral antibiotics due to leukocytosis.
--- NOTE | 2020-03-01 09:16 | HMH.DCSUM ---
General - General Admission date:: 02/29/20 Discharge date: 03/01/20 HPI HPI: This is a 19-year-old female who presents emergency department late yesterday evening with increasing upper abdominal pain. Her pain is mostly in the epigastric region. Some nausea. No fevers. No jaundice. Evaluation in the emergency department included a CT scan followed by right upper quadrant ultrasound confirming changes consistent with acute cholecystitis. No obvious stones were noted. Her white blood cell count was also notably elevated and she was admitted for IV antibiotics and surgical evaluation/management. Hospital Course Hospital Course: Patient was taken to the operating room. She underwent laparoscopic cholecystectomy. She was found to have the following findings:Mild to moderate gallbladder distention, Moderate wall thickening, Inflammatory response with mild to moderate weeping . She remained an inpatient postoperatively and was continued on levofloxacin and metronidazole. She was given a full liquid diet. She consumed a full liquid diet with impunity. She did have some minor gas pains but overall felt much better. In the late evening she was requesting her diet be advanced and this was advanced to bland diet. She consumed significant amount of bland diet without any difficulty. The following morning she was feeling much better and was somewhat tearful desiring to go home adamantly. She was doing well with her diet and vital signs were within normal limits. Interestingly her white blood cell count remained somewhat elevated at 20,000. Therefore plan was made for discharge home on the continuation of oral antibiotics with close outpatient surgical follow-up. Objective Vital signs: Temp Pulse Resp BP Pulse Ox 98.0 F 82 14 108/55 L 97 03/01/20 08:00 03/01/20 08:00 03/01/20 08:00 03/01/20 08:00 03/01/20 08:00 Results Labs on day of discharge: Labs from last 24 hours 03/01/20 03/01/20 06:30 06:30 WBC 20.8 H* D RBC 3.88 L Hgb 12.2 Hct 35.2 L MCV 90.7 MCH 31.4 H MCHC 34.6 RDW 12.9 Plt Count 268 MPV 8.2 Neut % (Auto) 84.9 H Lymph % (Auto) 10.8 [place] % (Auto) 2.9 Eos % (Auto) 1.2 Baso % (Auto) 0.1 Neut # (Auto) 17.6 H Lymph # (Auto) 2.2 [place] # (Auto) 0.6 Eos # (Auto) 0.3 Baso # (Auto) 0.0 Total Counted 100 Neutrophils % (Manual) 77 H Lymphocytes % (Manual) 20 Monocytes % (Manual) 3 Platelet Estimate Normal RBC Morphology Normal Sodium 137 Potassium 3.9 Chloride 107 Carbon Dioxide 23 Anion Gap 10.9 BUN 6 L D Creatinine 0.60 D Estimated Creat Clear 152 Estimated GFR 126 Est GFR ( Amer) 153 D Glucose 181 H Calcium 8.2 L Total Bilirubin 0.3 AST 69 H D ALT 148 H Alkaline Phosphatase 73 Total Protein 6.2 L Albumin 3.8 Globulin 2.4 Albumin/Globulin Ratio 1.6 DS: Diagnosis - Discharge Diagnosis (1) Cholecystitis Status: Acute Discharge Plan - Patient Discharge Instructions ACTIVITY: No heavy lifting DIET: advance to your usual diet Patient Instructions: Gallstones, Fat-Restricted Diet, Gastroesophageal Reflux Disease -- Adolescent, DI for Viral Gastroenteritis -- Adult, DI for Bacterial Gastroenteritis -- Adult, Gastroenteritis Diet - Follow up Plan Follow up with: Jonas Bethea MD [Staff Physician] - 1 week Disposition: Home, Self-Assisted Medications: Home Medications Medication Instructions Recorded Confirmed Type ARIPiprazole [Abilify 20mg Tablet] 20 mg PO DAILY 02/28/20 02/29/20 History Mirtazapine [Remeron 15mg tablet] 15 mg PO HS 02/28/20 02/29/20 History Sertraline HCl [Zoloft] 50 mg PO DAILY 02/28/20 02/29/20 History Omeprazole [Omeprazole 40mg 40 mg PO DAILY 02/29/20 02/29/20 History Capsule] Propranolol HCl 10 - 20 mg PO BIDP PRN 02/29/20 02/29/20 History Hydrocod/Acet 5/325 mg [[place] 1 - 2 tab PO Q6HP PRN #17 tab 03/01/20
[2020-03-01 09:27] LABS: Hepatitis C Antibody <0.1 s/co ratio (0.0-0.9)
[2020-03-02 13:08] LABS: Hep A Ab, IgM Negative (Negative); Hepatitis B Core Antibody IgM Negative (Negative); Hepatitis B Surface Antigen Negative (Negative)
[2020-03-02 18:27] LABS: Hepatitis C Antibody <0.1 s/co ratio (0.0-0.9)
== END 2020-03-01 10:15 | disposition home or self-care (01) ==
LOC: ER 22:42 → 2ND 23:27
PROVIDERS: Family Medicine; Surgery; Admitting Provider Surgery; Emergency Provider Emergency Medicine; PCP Internal Medicine Adolescent Medicine; Visit Provider Surgery
PROC: 0FT44ZZ Resection of Gallbladder, Percutaneous Endoscopic Approach (ICD-10-PCS; CPT 47562; principal; 2020-02-29 11:00)
DX: K81.0 Acute cholecystitis (principal)
CPT/HCPCS: 47562; 36415; 74177; 76705; 80053; 80074; 80305; 81001; 81025; 82150; 83605; 83690; 85007; 85025; 86328; 87040; 88304; 96365; 96366; 99284; G0378; J1956; J2405; J2710; Q9967

== ENCOUNTER 2020-03-03 17:34 | Emergency (ER) | payer OTHER, SELFPAY ==
[2020-03-03 17:36] VITALS: BP 138/88; PULSE 110; RESP 18; TEMP 36.8; O2SAT 96; BMI 23.3
[2020-03-03 18:06] VITALS: BP 120/58; PULSE 91; RESP 18; O2SAT 99
[2020-03-03 18:07] LABS: Microscopic, Urine URINE MICROSCOPIC (MICROSCOPIC)
[2020-03-03 18:11] LABS: Basophils # 0.1 K/mm3 (0-0.2); Basophils % 0.5 % (0.1-2.0); Eosinophils # 0.4 K/mm3 (0.0-0.4); Eosinophils % 3.1 % (0.1-12.0); Hematocrit 45.3 % (37.0-47.0); Hemoglobin 15.4 g/dL (12.2-16.2); Lymphocytes # 1.8 K/mm3 (0.7-4.5); Mean Corpuscular Hemoglobin 30.8 pg (27.0-31.2); Mean Corpuscular Volume 90.7 fl (81-99); Mean Platelet Volume 7.3 fl (7.4-10.4); Monocytes # 0.6 K/mm3 (0.1-1.0); Monocytes % 4.5 % (1.7-9.3); Neutrophils # 9.4 K/mm3 (1.8-7.8); Platelet Count 311 K/mm3 (142-424); Red Cell Distribution Width 12.7 % (11.5-17.5); White Blood Count 12.3 K/mm3 (4.8-10.8)
--- NOTE | 2020-03-03 18:14 | HMH.EDGENADL ---
ED Disposition Clinical Impression: Elevated liver enzymes Vomiting Qualifiers: Vomiting type: unspecified Vomiting Intractability: non-intractable Nausea presence: with nausea Qualified Code(s): R11.2 - Nausea with vomiting, unspecified Diarrhea Qualifiers: Diarrhea type: unspecified type Qualified Code(s): R19.7 - Diarrhea, unspecified Disposition: Home, Self-Care Condition on Discharge: Fair Instructions: DI for Diarrhea and Traveler's Diarrhea -- Adult, DI for Nausea -- Adult Additional Instructions: Do not take Orestes or unek-asn-bjdkopd acetaminophen. Do not drink alcohol. See Dr. Bethea in the office tomorrow. Call at 8 AM to schedule appointment. Tramadol as needed for pain. Zofran as needed for nausea and vomiting. Follow-up with primary care provider this week as well, call tomorrow to make appointment. Outpatient diarrhea panel. Prescriptions: Tramadol HCl [Tramadol 50mg Tab] 50 mg PO Q6HP PRN #10 tab PRN Reason: Moderate Pain Transmission Status: Received by [facility] Ondansetron [Zofran 4mg ODT] 4 mg PO TIDP PRN #10 tab.rapdis PRN Reason: Nausea And Vomiting Transmission Status: Received by [facility] Referrals: Augustin Locke MD [Primary Care Provider] - - Critical Care Critical Care Time: No Attestation: On 03/03/20, the high probability of a clinically significant, sudden or life threatening deterioration of the following system(s) required my full and direct attention, intervention and personal management. The time I documented below is in addition to time spent performing reported procedures but includes the following listed in this critical care notation. Medical Decision Making - Medical Records Medical records reviewed: Yes: I reviewed the patient's medical records. - Naun Inquiry Pt receiving controlled substance: No Vital Signs: 03/03/20 17:36 03/03/20 18:06 03/03/20 18:36 Temperature 98.3 F Temperature Source Oral Pulse Rate [Radial] 110 H 91 H 83 Respiratory Rate 18 18 18 Blood Pressure [Right Arm] 138/88 120/58 L 108/54 L Blood Pressure Mean [Right Arm] 104 78 72 Blood Pressure Source [Right Arm] Automatic Cuff Blood Pressure Position [Right Arm] Sitting 02 Sat by Pulse Oximetry 96 99 100 Oxygen Delivery Method Room Air Room Air Room Air 03/03/20 19:06 03/03/20 19:42 Temperature Temperature Source Pulse Rate [Radial] 85 81 Respiratory Rate 18 18 Blood Pressure [Right Arm] 106/56 L 132/51 L Blood Pressure Mean [Right Arm] 72 78 Blood Pressure Source [Right Arm] Blood Pressure Position [Right Arm] 02 Sat by Pulse Oximetry 100 100 Oxygen Delivery Method Room Air Room Air - Lab Data Lab results reviewed: Yes: I reviewed the patient's lab results. Lab Results 03/03/20 17:35: WBC 12.3 H D, RBC 5.00 D, Hgb 15.4, Hct 45.3, MCV 90.7, MCH 30.8, MCHC 34.0, RDW 12.7, Plt Count 311, MPV 7.3 L, Neut % (Auto) 77.0, Lymph % (Auto) 15.0, [place] % (Auto) 4.5, Eos % (Auto) 3.1, Baso % (Auto) 0.5, Neut # (Auto) 9.4 H, Lymph # (Auto) 1.8, [place] # (Auto) 0.6, Eos # (Auto) 0.4, Baso # (Auto) 0.1 03/03/20 17:35: Sodium 138, Potassium 4.2, Chloride 100, Carbon Dioxide 26, Anion Gap 16.2 H, BUN 8 D, Creatinine 0.60, Estimated Creat Clear 149, Estimated GFR 126, Est GFR ( Amer) 153, Glucose 100, Calcium 9.4 D, Total Bilirubin 2.6 H, AST 431 H* D, ALT 452 H*, Alkaline Phosphatase 177 H, Total Protein 8.4 H D, Albumin 5.2 H, Globulin 3.2, Albumin/Globulin Ratio 1.6 03/03/20 17:35: Urine HCG, Qual Negative 03/03/20 17:35: Monoscreen Negative 03/03/20 17:35: Acetaminophen < 10 L 03/03/20 17:39: Amylase 46, Lipase 154 03/03/20 17:59: Urine Color Yellow, Urine Appearance Clear, Urine pH 7.5, Ur Specific [place] 1.015, Urine Protein Negative, Urine Glucose (UA) Negative, Urine Ketones Trace, Urine Blood Negative, Urine Nitrate Negative, Urine Bilirubin Negative, Urine Urobilinogen 0.2, Ur Leukocyte Esterase Negative, Urine WBC 3-5
[2020-03-03 18:19] LABS: Chloride 100 mmol/L (98-107); Potassium 4.2 mmoL/L (3.5-5.1); Sodium 138 mmol/L (136-145)
[2020-03-03 18:22] LABS: Alanine Aminotransferase 452 U/L (12-78); Albumin Level 5.2 g/dl (3.5-5.0); Albumin/Globulin Ratio 1.6 (1.1-1.8); Alkaline Phosphatase 177 U/L (38-126); Anion Gap 16.2 mEq/L (5-15); Aspartate Amino Transferase 431 U/L (14-36); Bilirubin,Total 2.6 mg/dl (0.2-1.3); Blood Urea Nitrogen 8 mg/dl (7-17); Carbon Dioxide 26 mmol/L (22.0-30.0); Creatinine Clearance Estimated 149 mL/min (50-200); Estimated Glomerular Filt Rate 126 ml/min (>60); GFR (African American) 153 ML/MIN (>60); Globulin 3.2 g/dL (1.3-3.2); Glucose 100 mg/dl (74-100); Total Protein,Serum 8.4 g/dl (6.3-8.2)
--- NOTE | 2020-03-03 18:24 | CT_ITS ---
PROCEDURE: CT ABDOMEN PELVIS W CON CLINICAL INDICATION: post blanco vomiting, elev LFTs Nausea and vomiting status post cholecystectomy with elevated LFTs COMPARISON: CT ABDOMEN PELVIS W CON from 02/28/2020 TECHNIQUE: IV Contrast: 75ML OPTIRAY 350 Oral Contrast none Axial images obtained with sagittal and coronal reformats. All CT scans at the facility use one or more dose reduction, viz: automated exposure control, ma/kV adjustment per patient size (including targeted exams where dose is matched to indication, i.e. head), or iterative reconstruction technique. FINDINGS: LOWER THORAX: No acute finding ABDOMEN & PELVIS: Post cholecystectomy changes. The liver, spleen, adrenal glands, and pancreas have an unremarkable appearance. Status post cholecystectomy with no evidence of biloma. Postsurgical changes are present involving the abdominal wall with minimal amount of air within the abdominal wall musculature. No intestinal obstruction or free air. No evidence of appendicitis. There are fluid-filled loops of large and small bowel with a few air-fluid levels within the large bowel which could reflect diarrhea or low-grade colitis. There is a small amount fluid in the pelvis. There is a 4 cm right ovarian cyst. No acute bony findings. IMPRESSION: 1. Status post cholecystectomy. No evidence of biloma. 2. Air-fluid levels within the colon which may be seen with diarrhea or low-grade colitis 3. 4 cm right ovarian cyst with small amount fluid in the cul-de-sac Dictated by: Jakob Price MD 03/04/2020 07:33 Electronically signed by Jakob Price MD in [place] 03/04/2020 07:33
[2020-03-03 18:27] LABS: Appearance,Urine CLEAR (Clear); Bilirubin,Urine Negative (Negative); Blood, Urine Negative (Negative); Color,Urine YELLOW (Yellow); Glucose,Urine (UA) Negative (Negative); Ketones,Urine TRACE (Negative); Leukocyte Esterase,Urine Negative (Negative); Nitrate,Urine Negative (Negative); PH,Urine 7.5 (5.0-8.5); Protein,Urine Negative (Negative); Specific Gravity, Urine 1.015 (1.005-1.030); Urobilinogen,Urine 0.2 EU/dl (0.2)
[2020-03-03 18:30] LABS: Urine Pregnancy, HCG Qual. Negative (Negative)
[2020-03-03 18:36] VITALS: BP 108/54; PULSE 83; RESP 18; O2SAT 100
[2020-03-03 18:43] LABS: Amylase 46 U/L (30-110); Lipase 154 U/L (23-300)
[2020-03-03 18:45] LABS: Calcium 9.4 mg/dl (8.4-10.2)
[2020-03-03 18:46] LABS: Bacteria,Urine Trace /lpf
[2020-03-03 19:06] VITALS: BP 106/56; PULSE 85; RESP 18; O2SAT 100
--- NOTE | 2020-03-03 19:15 | PC.NURSE ---
received report from nancy zurita
--- NOTE | 2020-03-03 19:20 | PC.NURSE ---
dr mcdowell paged
--- NOTE | 2020-03-03 19:22 | PC.NURSE ---
on phone with dr mcdowell
--- NOTE | 2020-03-03 19:31 | PC.NURSE ---
on phone with dr mcdowell
[2020-03-03 19:37] LABS: Monoscreen (Rapid) Negative (Negative)
--- NOTE | 2020-03-03 19:39 | PC.NURSE ---
pt doesn't want admission. dr mcdowell notified.
[2020-03-03 19:42] VITALS: BP 132/51; PULSE 81; RESP 18; O2SAT 100
--- NOTE | 2020-03-03 19:50 | PC.NURSE ---
called to assess for acetaminophen results
[2020-03-03 19:51] LABS: Acetaminophen < 10 ug/ml (10-30)
[2020-03-03 19:58] VITALS: BP 120/61; PULSE 80; RESP 16; TEMP 36.8; O2SAT 99
[2020-03-03 20:21] LABS: Ethyl Alcohol < 10 mg/dl (0-10)
== END 2020-03-03 20:21 | disposition home or self-care (01) ==
PROVIDERS: Emergency Provider Emergency Medicine; PCP Internal Medicine Adolescent Medicine
DX: R19.7 Diarrhea, unspecified (principal); R94.5 Abnormal results of liver function studies; N83.201 Unspecified ovarian cyst, right side; F41.8 Other specified anxiety disorders; Z88.0 Allergy status to penicillin; Z87.891 Personal history of nicotine dependence
CPT/HCPCS: 74177; 80053; 80329; 81001; 81025; 82150; 83690; 85025; 86318; 96365; 99284; Q9967

== ENCOUNTER → 2020-03-04 14:37 | Outpatient (CLI) | payer OTHER, SELFPAY ==
[2020-03-04 14:42] LABS: Adenovirus F 40/41, stool Not Detected (NotDetected); Astrovirus Not Detected (NotDetected); Campylobacter Not Detected (NotDetected); Clostridium Difficile A/B, PCR Not Detected (NotDetected); Cryptosporidium Not Detected (NotDetected); Cyclospora Cayetanesis Not Detected (NotDetected); Entamoeba histolytica Not Detected (NotDetected); Enteroaggregative E coli Not Detected (NotDetected); Enteropathogenic E coli Not Detected (NotDetected); Enterotoxigenic E coli Not Detected (NotDetected); Giardia lamblia Not Detected (NotDetected); Norovirus Not Detected (NotDetected); Plesimonas Shigalloides, PCR Not Detected (NotDetected); Rotavirus A Not Detected (NotDetected); Salmonella, PCR Not Detected (NotDetected); Sapovirus Not Detected (NotDetected); Shiga-like toxin E coli Not Detected (NotDetected); Shigella Enterovasive E coli Not Detected (NotDetected); Vibrio Cholerae Not Detected (NotDetected); Vibrio, PCR Not Detected (NotDetected); Yersinia Entercolitica, PCR Not Detected (NotDetected)
== END ==
PROVIDERS: Visit Provider Emergency Medicine
DX: R19.7 Diarrhea, unspecified (principal); R11.2 Nausea with vomiting, unspecified
CPT/HCPCS: 87507

== ENCOUNTER → 2020-03-05 15:34 | Outpatient (CLI) | payer OTHER, SELFPAY ==
[2020-03-05 16:12] LABS: Basophils # 0.1 K/mm3 (0-0.2); Basophils % 0.4 % (0.1-2.0); Eosinophils # 0.5 K/mm3 (0.0-0.4); Hematocrit 42.9 % (37.0-47.0); Hemoglobin 14.4 g/dL (12.2-16.2); Lymphocytes # 2.7 K/mm3 (0.7-4.5); Lymphocytes % 23.5 % (10-50); Mean Corpuscular HGB Conc 33.5 g/dL (31.8-35.4); Mean Corpuscular Hemoglobin 31.2 pg (27.0-31.2); Mean Corpuscular Volume 93.1 fl (81-99); Mean Platelet Volume 7.3 fl (7.4-10.4); Monocytes # 0.6 K/mm3 (0.1-1.0); Monocytes % 5.1 % (1.7-9.3); Neutrophils # 7.8 K/mm3 (1.8-7.8); Platelet Count 301 K/mm3 (142-424); Red Blood Count 4.61 M/mm3 (4.20-5.40); White Blood Count 11.7 K/mm3 (4.8-10.8)
[2020-03-05 17:05] LABS: Alanine Aminotransferase 270 U/L (12-78); Albumin Level 4.8 g/dl (3.5-5.0); Albumin/Globulin Ratio 1.9 (1.1-1.8); Alkaline Phosphatase 141 U/L (38-126); Anion Gap 17.9 mEq/L (5-15); Aspartate Amino Transferase 130 U/L (14-36); Bilirubin,Total 0.6 mg/dl (0.2-1.3); Blood Urea Nitrogen 11 mg/dl (7-17); Calcium 9.7 mg/dl (8.4-10.2); Carbon Dioxide 24 mmol/L (22.0-30.0); Chloride 101 mmol/L (98-107); Estimated Glomerular Filt Rate 126 ml/min (>60); GFR (African American) 153 ML/MIN (>60); Globulin 2.5 g/dL (1.3-3.2); Glucose 117 mg/dl (74-100); Potassium 3.9 mmoL/L (3.5-5.1); Sodium 139 mmol/L (136-145); Total Protein,Serum 7.3 g/dl (6.3-8.2)
== END ==
PROVIDERS: Visit Provider Internal Medicine Adolescent Medicine
DX: K75.9 Inflammatory liver disease, unspecified (principal)
CPT/HCPCS: 36415; 80053; 85025

== ENCOUNTER 2020-04-18 14:17 | Emergency (ER) | payer OTHER, SELFPAY ==
[2020-04-18 15:58] VITALS: BP 120/72; PULSE 79; RESP 20; TEMP 36.8; O2SAT 99; BMI 23.4
--- NOTE | 2020-04-18 16:24 | HMH.EDUTC ---
[facility] Disposition Clinical Impression: Viral syndrome Disposition: Home, Self-Care Condition on Discharge: Good Instructions: Preventing the Spread of Coronavirus Discharge Instructions Additional Instructions: You have been tested for COVID19. These results typically take 48-72 hours. Please act as if you are positive and quarantine yourself until results are available. Prescriptions: Brompheniramine/Pseudoephed/Dm [Bromfed Dm Cough Syrup] 10 ml PO Q46H 10 Days #180 ml Transmission Status: Pending to [facility] Referrals: Augustin Locke MD [Primary Care Provider] - Time of Disposition: 16:27 Medical Decision Making - Naun Inquiry Pt receiving controlled substance: No Vital Signs: 04/18/20 15:58 Temperature 98.2 F Temperature Source Oral Pulse Rate [Right Brachial] 79 Respiratory Rate 20 Blood Pressure [Right Arm] 120/72 Blood Pressure Mean [Right Arm] 88 Blood Pressure Source [Right Arm] Automatic Cuff Blood Pressure Position [Right Arm] Sitting 02 Sat by Pulse Oximetry 99 Oxygen Delivery Method Room Air Orders (Tests/Meds): ORDERS Category Date Time Status SARS-CoV-2, ESTHER ([place]) Stat Lab 04/18/20 16:02 Ordered [facility] HPI - General Stated complaint: cough; stuffy nose, Time Seen by Provider: 04/18/20 16:25 Mode of Arrival: Ambulatory Source of Information: Patient Limitations: No Limitations Description of Symptoms (Recalled from Triage Doc. by RN): PATIENT C/O SOA, HEADACHE, LOWER ABDOMINAL PAIN, DIARRHEA, FEVER, AND MUSCLE ACHES X 1 WEEK HEENT Symptoms (Recalled from RN notes): Yes Resp Symptoms (Recalled from RN notes): Yes Skin Symptoms (Recalled from RN notes): No MS Symptoms (Recalled from RN notes): No Functional Status (Recalled from RN notes): WNL - History of Present Illness Provider Complaint: Cough, congestion, sore throat, drainage, SOA, chest pain, abdominal pain and diarrhea X 1 week. Low grade fever. Onset (ago): week(s) (1) Relieving factors: none Exacerbating factors: none Associated symptoms: cough, fever/chills Treatments prior to arrival: none - Related Data Previous Rx's Medication Instructions Recorded Brompheniramine/Pseudoephed/Dm 10 ml PO Q46H 10 Days #180 ml 04/18/20 [Bromfed Dm Cough Syrup] Allergies Allergy/AdvReac Type Severity Reaction Status Date / Time penicillin G [PENICILLIN G] Allergy Intermediate Hives Verified 03/11/20 09:26 ibuprofen [From MOTRIN] Allergy Mild I-HIVES Verified 03/11/20 09:26 - Worker's Comp Is this a Worker's Comp case?: No [facility] History - Hepatitis A Screen Drug use history?: No High risk sexual behaviors?: No History of sexually transmitted infection?: No Currently employed?: No Childcare worker?: No Do you have indoor plumbing?: Yes Do you have electricity?: Yes Attestation statement:: This patient has been screened for Hepatitis A risk factors. Medical History: Reports:: Anxiety, Depression, Gastroesophageal Reflux Disease(GERD) Denies:: Cancer, Diabetes Mellitus Type 1, Diabetes Mellitus Type 2, Hypertension, Internal Pacemaker, MRSA, Seizures Other Medical History: Reports: Other. Denies: Blood Transfusion Reaction Comment: Anxiety. Depression. Bi-Polar. ADHD Laterality Cases: Bilateral: Myringotomy (Ear Tubes), Tonsillectomy Other Surgeries: Yes: No Previous Surgery, Cholecystectomy, , Other. No: Pacemaker Amputation: No Fractures: No Comment: Ear tubes as child. T&A-2005. Primary C/S--10/21/2017 - Social History Smoking Status: Current every day smoker Tobacco Type: cigarettes # Packs/Day (cigarettes): 1 #Yrs smoked (if former smoker): 20 Alcohol Intake: never Alcohol Intake Frequency:: other Substance Use Type: denies use Occupational Status: other Housing: house Household Members: spouse - Psychiatric History Pschychiatric History:: Reports:: Anxiety, Bipolar Disorder, Depression Family Hx:: Cancer, Diabetes, Heart Attack, Hyperlipidemia, Hy
[2020-04-18 16:36] VITALS: BP 120/72; PULSE 79; RESP 20; TEMP 36.8; O2SAT 99
[2020-04-20 09:51] LABS: Covid-19 Nasal PCR Sendout UK Not Detected
== END 2020-04-18 16:42 | disposition home or self-care (01) ==
PROVIDERS: Emergency Provider Physician Assistant; PCP Internal Medicine Adolescent Medicine
DX: B34.9 Viral infection, unspecified (principal); F41.8 Other specified anxiety disorders; K21.9 Gastro-esophageal reflux disease without esophagitis; F17.210 Nicotine dependence, cigarettes, uncomplicated; Z88.0 Allergy status to penicillin
CPT/HCPCS: 99201; U0003

== ENCOUNTER → 2020-05-09 16:14 | Outpatient (CLI) | payer OTHER, SELFPAY ==
[2020-05-09 16:19] LABS: Microscopic, Urine URINE MICROSCOPIC (MICROSCOPIC)
[2020-05-09 16:36] LABS: Appearance,Urine CLEAR (Clear); Bilirubin,Urine Negative (Negative); Blood, Urine Negative (Negative); Color,Urine YELLOW (Yellow); Glucose,Urine (UA) Negative (Negative); Ketones,Urine Negative (Negative); Leukocyte Esterase,Urine Negative (Negative); Nitrate,Urine Negative (Negative); Protein,Urine Negative (Negative); Specific Gravity, Urine 1.025 (1.005-1.030); Urobilinogen,Urine 0.2 EU/dl (0.2)
[2020-05-09 16:43] LABS: Basophils # 0.1 K/mm3 (0-0.2); Basophils % 0.7 % (0.1-2.0); Eosinophils # 0.7 K/mm3 (0.0-0.4); Eosinophils % 5.6 % (0.1-12.0); Lymphocytes # 3.5 K/mm3 (0.7-4.5); Lymphocytes % 30.6 % (10-50); Mean Corpuscular HGB Conc 34.1 g/dL (31.8-35.4); Mean Corpuscular Hemoglobin 30.9 pg (27.0-31.2); Mean Corpuscular Volume 90.4 fl (81-99); Mean Platelet Volume 7.4 fl (7.4-10.4); Monocytes # 0.5 K/mm3 (0.1-1.0); Monocytes % 4.3 % (1.7-9.3); Neutrophils # 6.8 K/mm3 (1.8-7.8); Neutrophils % 58.7 % (37.0-80.0); Platelet Count 321 K/mm3 (142-424); Red Blood Count 4.54 M/mm3 (4.20-5.40); Red Cell Distribution Width 12.7 % (11.5-17.5); White Blood Count 11.5 K/mm3 (4.8-10.8)
[2020-05-09 16:49] LABS: Chloride 107 mmol/L (98-107)
[2020-05-09 16:50] LABS: Potassium 3.8 mmoL/L (3.5-5.1); Sodium 139 mmol/L (136-145)
[2020-05-09 16:52] LABS: Alanine Aminotransferase 31 U/L (12-78); Alkaline Phosphatase 62 U/L (38-126); Amylase 62 U/L (30-110); Anion Gap 13.8 mEq/L (5-15); Aspartate Amino Transferase 36 U/L (14-36); Bilirubin,Total 0.3 mg/dl (0.2-1.3); Blood Urea Nitrogen 8 mg/dl (7-17); Carbon Dioxide 22 mmol/L (22.0-30.0); Estimated Glomerular Filt Rate 126 ml/min (>60); GFR (African American) 153 ML/MIN (>60)
[2020-05-09 16:53] LABS: Albumin Level 4.4 g/dl (3.5-5.0); Albumin/Globulin Ratio 1.8 (1.1-1.8); Calcium 9.4 mg/dl (8.4-10.2); Globulin 2.4 g/dL (1.3-3.2); Glucose 103 mg/dl (74-100); Lipase 105 U/L (23-300); Total Protein,Serum 6.8 g/dl (6.3-8.2)
[2020-05-09 16:59] LABS: Bacteria,Urine Trace /lpf; Mucus,Urine Trace /lpf; RBC,Urine Occasional #/hpf (0-3); Squamous Epithelial Cell,Urine Occasional #/hpf (0-5); WBC,Urine Occasional #/hpf (0-3)
[2020-05-09 17:13] LABS: HCG,Quantitative < 2 mIU/ml (0-5.42)
[2020-05-09 17:23] LABS: Thyroid Stimulating Hormone 1.57 uIU/mL (0.465-4.68)
[2020-05-11 12:48] LABS: Hep A Ab, IgM Negative (Negative); Hepatitis B Core Antibody IgM Negative (Negative); Hepatitis B Surface Antigen Negative (Negative)
[2020-05-11 15:11] LABS: Hepatitis C Antibody <0.1 s/co ratio (0.0-0.9)
== END ==
PROVIDERS: Visit Provider Internal Medicine Adolescent Medicine
DX: N91.2 Amenorrhea, unspecified (principal); R10.84 Generalized abdominal pain; K92.1 Melena
CPT/HCPCS: 36415; 80053; 80074; 81001; 82150; 83690; 84443; 84702; 85025

== ENCOUNTER 2020-05-11 11:52 | Emergency (ER) | payer OTHER, SELFPAY ==
[2020-05-11 11:53] VITALS: BP 117/62; PULSE 95; RESP 17; TEMP 37.5; O2SAT 99; BMI 24.1
[2020-05-11 12:11] VITALS: BMI 24.1
[2020-05-11 12:25] LABS: Microscopic, Urine URINE MICROSCOPIC (MICROSCOPIC)
[2020-05-11 12:27] LABS: Appearance,Urine CLEAR (Clear); Bilirubin,Urine Negative (Negative); Blood, Urine Negative (Negative); Color,Urine YELLOW (Yellow); Glucose,Urine (UA) Negative (Negative); Ketones,Urine Negative (Negative); Leukocyte Esterase,Urine Negative (Negative); Nitrate,Urine Negative (Negative); PH,Urine 6.5 (5.0-8.5); Protein,Urine Negative (Negative); Specific Gravity, Urine 1.025 (1.005-1.030); Urobilinogen,Urine 0.2 EU/dl (0.2)
--- NOTE | 2020-05-11 12:27 | CT_ITS ---
Procedure: CT ABDOMEN PELVIS W CON Referring Doctor: Lalo Wakefield Patient Age:19Y CLINICAL INDICATION: ABD PAIN Abdominal pain with nausea vomiting and diarrhea since having her gallbladder taken out on 02/29/2020 COMPARISON: CT ABDPELW CT ABD PELVIS W/ CONTRAST from 12/15/2016 US PTV US PELVIS-TRANSVAGINAL ONLY from 01/14/2017 US US ABDOMEN LIMITED from 02/28/[address] ABDOMEN PELVIS W CON from 02/28/[address] ABDOMEN PELVIS W CON from 03/03/2020 TECHNIQUE: IV contrast: 75 cc Optiray 350 IV contrast utilized. No oral enteric contrast Axial images obtained with sagittal and coronal reformats. All CT scans at the facility use one or more dose reduction, viz: automated exposure control, ma/kV adjustment per patient size (including targeted exams where dose is matched to indication, i.e. head), or iterative reconstruction technique. FINDINGS: Lower thorax: No acute finding ABDOMEN: Liver: Unremarkable no masses or biliary dilatation. Gallbladder: Surgically removed. Common duct normal Pancreas: No masses or peripancreatic fluid collections. Spleen: unremarkable normal size a is shown the Adrenals: unremarkable Kidneys/ureters: unremarkable kidneys enhance normally. No urinary tract calculi. PELVIS:. generous girth uterus again noted with slightly inhomogeneous enhancement question small underlying fibroids, for example noting a 12 mm area of enhancement the towards anterior fundus on sagittal reconstruction the slice 39. Ovaries: On previous February 2020 CT the Right Ovary was enlarged with cyst measuring to 4 cm. On today's study the right ovary is small normal size measuring less than 2.5 cm with no remarkable cyst.. However on today's study the Left Ovary is now enlarged due to 4 cm x 3.5 cm cyst There is free fluid in the cul-de-sac most evident along right pelvic basin possibly could reflect recent ovarian cyst leak or rupture? If the current right pelvic pain question that this may the have come no longer evident right ovarian cyst? Consider pelvic ultrasound if patient develops pelvic symptoms Bladder: Minimally distended. Borderline wall thickening. No obvious stones or masses. GI tract. : The Large bowel.: Generous stool is seen at the right colon, moderate stool the transverse colon.. Moderate stool at rectosigmoid junction region. Scant contents the descending colon. No air-fluid levels at large bowel to reflect diarrhea. Few early diverticula at sigmoid colon but no diverticulitis evident . Small bowel: Scattered moderate air-fluid levels with upper normal caliber small bowel. Small bowel normal upper normal caliber with perhaps slight increased fluid throughout small bowel. Appendix: No evidence of appendicitis. Appendix somewhat difficult to visualize but no evidence of appendicitis . Peritoneum: . . No obvious inflammatory changes. No free air. Lymph nodes: No enlarged lymph nodes apparent. Vasculature: No evidence of abdominal aortic aneurysm. No retroperitoneal h findings orrhage evident. Bones: No acute fracture IMPRESSION: Minor observations no prominent findings Cholecystectomysite satisfactory. No biliary ductal dilatation. Pancreas unremarkable Moderate to generous solid stool at right and transverse colon. Moderate solid stool rectosigmoid junction region. No air-fluid levels at large bowel to reflect diarrhea. No wall thickening large bowel Slight increased fluid with few air-fluid levels within upper normal caliber Small Bowel. Nonspecific/unimpressive Minimal physiologic free fluid, right pelvis the basin . The 4 cm cyst previously seen at right ovary no longer evident; however there is now 4 cm cyst left ovar
[2020-05-11 12:29] LABS: Urine Pregnancy, HCG Qual. Negative (Negative)
[2020-05-11 12:31] LABS: Basophils # 0.1 K/mm3 (0-0.2); Basophils % 0.6 % (0.1-2.0); Eosinophils # 0.7 K/mm3 (0.0-0.4); Eosinophils % 6.6 % (0.1-12.0); Hematocrit 41.2 % (37.0-47.0); Hemoglobin 14.2 g/dL (12.2-16.2); Lymphocytes # 2.7 K/mm3 (0.7-4.5); Lymphocytes % 26.7 % (10-50); Mean Corpuscular HGB Conc 34.5 g/dL (31.8-35.4); Mean Corpuscular Hemoglobin 31.2 pg (27.0-31.2); Mean Corpuscular Volume 90.5 fl (81-99); Mean Platelet Volume 7.6 fl (7.4-10.4); Monocytes # 0.5 K/mm3 (0.1-1.0); Monocytes % 4.5 % (1.7-9.3); Neutrophils # 6.2 K/mm3 (1.8-7.8); Neutrophils % 61.7 % (37.0-80.0); Platelet Count 310 K/mm3 (142-424); Red Blood Count 4.55 M/mm3 (4.20-5.40); Red Cell Distribution Width 12.7 % (11.5-17.5)
[2020-05-11 12:33] LABS: Chloride 108 mmol/L (98-107); Potassium 3.7 mmoL/L (3.5-5.1); Sodium 139 mmol/L (136-145)
[2020-05-11 12:35] LABS: Amylase 57 U/L (30-110)
[2020-05-11 12:36] LABS: Alanine Aminotransferase 34 U/L (12-78); Albumin Level 4.3 g/dl (3.5-5.0); Albumin/Globulin Ratio 1.7 (1.1-1.8); Alkaline Phosphatase 61 U/L (38-126); Anion Gap 11.7 mEq/L (5-15); Aspartate Amino Transferase 38 U/L (14-36); Bilirubin,Total 0.5 mg/dl (0.2-1.3); Blood Urea Nitrogen 8 mg/dl (7-17); Calcium 8.7 mg/dl (8.4-10.2); Carbon Dioxide 23 mmol/L (22.0-30.0); Creatinine Clearance Estimated 132 mL/min (50-200); Estimated Glomerular Filt Rate 106 ml/min (>60); GFR (African American) 128 ML/MIN (>60); Globulin 2.5 g/dL (1.3-3.2); Glucose 114 mg/dl (74-100); Lipase 93 U/L (23-300); Total Protein,Serum 6.8 g/dl (6.3-8.2)
[2020-05-11 12:37] LABS: Amorphous Sediment,Urine 2+ /lpf; Mucus,Urine 2+ /lpf
--- NOTE | 2020-05-11 12:55 | PC.NURSE ---
pt going to ct
--- NOTE | 2020-05-11 13:16 | HMH.EDGENADL ---
ED Disposition Clinical Impression: Abdominal pain, right lower quadrant Disposition: Home, Self-Care Condition on Discharge: Good Instructions: DI for Abdominal Pain-Adult Additional Instructions: Follow-up with your primary care provider tomorrow to arrange endoscopy and colonoscopy. Follow-up with your LOG DRIVER for ovarian cyst and enlarged uterus. Referrals: Augustin Locke MD [Primary Care Provider] - - Critical Care Critical Care Time: No Attestation: On 05/11/20, the high probability of a clinically significant, sudden or life threatening deterioration of the following system(s) required my full and direct attention, intervention and personal management. The time I documented below is in addition to time spent performing reported procedures but includes the following listed in this critical care notation. Medical Decision Making - Medical Records Medical records reviewed: Yes: I reviewed the patient's medical records. - Naun Inquiry Pt receiving controlled substance: No Vital Signs: 05/11/20 11:53 05/11/20 14:11 05/11/20 15:32 Temperature 99.5 F 98.5 F Temperature Source Oral Oral Pulse Rate 65 Pulse Rate [Right] 95 H 74 Respiratory Rate 17 16 16 Blood Pressure 122/70 Blood Pressure [Right Arm] 117/62 114/70 Blood Pressure Mean [Right Arm] 80 84 Blood Pressure Source Automatic Cuff Blood Pressure Source [Right Arm] Automatic Cuff Blood Pressure Position Sitting Blood Pressure Position [Right Arm] Sitting 02 Sat by Pulse Oximetry 99 98 Oxygen Delivery Method Room Air Room Air - Lab Data Lab results reviewed: Yes: I reviewed the patient's lab results. Lab Results 05/11/20 12:10: Urine Color Yellow, Urine Appearance Clear, Urine pH 6.5, Ur Specific [place] 1.025, Urine Protein Negative, Urine Glucose (UA) Negative, Urine Ketones Negative, Urine Blood Negative, Urine Nitrate Negative, Urine Bilirubin Negative, Urine Urobilinogen 0.2, Ur Leukocyte Esterase Negative, Urine RBC None, Urine WBC None, Ur Squamous Epith Cells 3-5, Amorphous Sediment 2+, Urine Bacteria None, Urine Mucus 2+ 05/11/20 12:10: Urine HCG, Qual Negative 05/11/20 12:20: WBC 10.0, RBC 4.55, Hgb 14.2, Hct 41.2, MCV 90.5, MCH 31.2, MCHC 34.5, RDW 12.7, Plt Count 310, MPV 7.6, Neut % (Auto) 61.7, Lymph % (Auto) 26.7, [place] % (Auto) 4.5, Eos % (Auto) 6.6, Baso % (Auto) 0.6, Neut # (Auto) 6.2, Lymph # (Auto) 2.7, [place] # (Auto) 0.5, Eos # (Auto) 0.7 H, Baso # (Auto) 0.1 05/11/20 12:20: Sodium 139, Potassium 3.7, Chloride 108 H, Carbon Dioxide 23, Anion Gap 11.7, BUN 8, Creatinine 0.70, Estimated Creat Clear 132, Estimated GFR 106, Est GFR ( Amer) 128, Glucose 114 H, Calcium 8.7, Total Bilirubin 0.5, AST 38 H, ALT 34, Alkaline Phosphatase 61, Total Protein 6.8, Albumin 4.3, Globulin 2.5, Albumin/Globulin Ratio 1.7, Amylase 57, Lipase 93 Result diagrams: 05/11/20 12:20 05/11/20 12:20 Orders (Tests/Meds): ED MEDICATIONS Discontinued Medications Generic Name Dose Route Start Last Admin Trade Name Freq PRN Reason Stop Dose Admin Ioversol 75 ml 05/11/20 13:12 05/11/20 13:13 Rad-Optiray 350 100ml Vial IV 05/11/20 13:13 75 ml ONCE ONE Administration Protocol Sodium Chloride 10 ml 05/11/20 13:12 05/11/20 13:13 Rad-Saline Flush 10ml Syringe IV 05/11/20 13:13 10 ml ONCE ONE Administration ORDERS Category Date Time Status Diarrhea 23 Panel, PCR Stat Lab 05/11/20 12:11 Ordered - CT Data CT Scan: Abdomen, Pelvis Time Received: 14:[address] Reviewed: Yes: I have viewed the radiologist's interpretation Findings Narrative: Procedure: CT ABDOMEN PELVIS W CON Referring Doctor: Lalo Wakefield Patient Age:19Y CLINICAL INDICATION: ABD PAIN Abdominal pain with nausea vomiting and diarrhea since having her gallbladder taken out on 02/29/2020 COMPARISON: CT ABDPELW CT ABD PELVIS W/ CONTRAST from 12/15/2016 US PTV US PELVIS-TRANSVAGINAL ONLY from 01/14/2017 US US A
[2020-05-11 14:11] VITALS: BP 114/70; PULSE 74; RESP 16; O2SAT 98
[2020-05-11 15:32] VITALS: BP 122/70; PULSE 65; RESP 16; TEMP 36.9; O2SAT 98
== END 2020-05-11 15:33 | disposition home or self-care (01) ==
PROVIDERS: Emergency Provider Emergency Medicine; PCP Internal Medicine Adolescent Medicine
DX: R10.31 Right lower quadrant pain (principal); F41.8 Other specified anxiety disorders; K21.9 Gastro-esophageal reflux disease without esophagitis; F17.210 Nicotine dependence, cigarettes, uncomplicated; Z88.0 Allergy status to penicillin; Z88.6 Allergy status to analgesic agent
CPT/HCPCS: 74177; 80053; 81001; 81025; 82150; 83690; 85025; 99283; Q9967

== ENCOUNTER → 2020-05-31 12:17 | Outpatient (CLI) | payer OTHER, SELFPAY ==
[2020-05-31 12:38] LABS: Urine Pregnancy, HCG Qual. Negative (Negative)
[2020-05-31 13:07] LABS: Coronavirus 19 IgG Antibody Negative (Negative); Coronavirus 19 IgM Antibody Negative (Negative)
== END ==
PROVIDERS: Visit Provider Internal Medicine Gastroenterology
DX: Z01.818 Encounter for other preprocedural examination (principal); Z13.810 Encounter for screening for upper gastrointestinal disorder
CPT/HCPCS: 36415; 81025; 86328

== ENCOUNTER 2020-06-02 09:29 | Day surgery (SDC) | payer OTHER, SELFPAY ==
[2020-05-28 10:37] VITALS: BMI 23.8
[2020-06-02 09:47] VITALS: BP 121/55; PULSE 88; RESP 18; TEMP 36.7; O2SAT 99
[2020-06-02 10:11] VITALS: O2SAT 99
--- NOTE | 2020-06-02 10:11 | HMH.ANESCL ---
[facility] Anesthesia Checklist - Structural Data Admitted From: Home Planned Operative Procedure/s: egd/colonoscopy Consent for Planned Operative Procedure(s) Verified: Yes - Additional verifications Anesthesia Reactions: No Hx Blood Transfusions: No Blood Transfusion Reaction: No - Airway Assessment C-Spine Mobility Assessed: Yes TMJ Mobility Assessed: Yes Dentition: Good Dentition - Neurological Assessment Level of Consciousness: Awake, Alert, Appropriate - Anesthesia Plan Anesthesia Risk discussed: Yes Anesthesia Plan: Verified ASA Class: II Anesthesia Type: MAC [facility] History I have reviewed the patient's past medical history: Yes Medical History: Reports:: Anxiety, Depression, Gastroesophageal Reflux Disease(GERD) Denies:: Cancer, Diabetes Mellitus Type 1, Diabetes Mellitus Type 2, Hypertension, Internal Pacemaker, MRSA, Seizures *Have you ever received a pneumonia vaccine?: No *Have you received a flu vaccine this season?: Yes Other Medical History: Reports: Other. Denies: Blood Transfusion Reaction Anesthesia experience/problems:: none Laterality Cases: Bilateral: Myringotomy (Ear Tubes), Tonsillectomy Other Surgeries: Yes: No Previous Surgery, Cholecystectomy, , Other. No: Pacemaker Amputation: No Fractures: No - *Social History Last grade of school completed: High school graduate Smoking Status: Current every day smoker Tobacco Type: cigarettes # Packs/Day (cigarettes): 1 #Yrs smoked (if former smoker): 20 Alcohol Intake: never Alcohol Intake Frequency:: other Substance Use Type: denies use *Occupational Status:: unemployed Housing: house Household Members: spouse, children *Travel in the last 8 weeks: None - Psychiatric History Pschychiatric History:: Reports:: Anxiety, Bipolar Disorder, Depression Family Hx:: Asthma, Cancer, Coronary Artery Disease, Diabetes, Heart Attack, Hyperlipidemia, Hypertension, Kidney Disease, Stroke, Substance abuse, Alcoholism, Mental illness
--- NOTE | 2020-06-02 10:34 | HMH.PROC ---
[facility] Procedure Note Procedure Note:: Upper Endoscopy Procedure Report: Esophagogastroduodenoscopy with cold biopsies Endoscopost: Josue Lugo II, MD Referring Physician: Augustin Locke MD Date of Procedure: June 02, 2020 Equipment: Olympus GIF 180 standard upper endoscope Sedation: MAC sedation Indications: Ms. Cowan is a 19-year-old female with chronic abdominal complaints with digestive difficulties that have worsened over the last year. She did have cholecystectomy earlier this year (February 2020 with Jonas Bethea M.D.) due to ongoing dyspepsia and abnormal HIDA scan. She had some improvement but continues to have dyspepsia with generalized abdominal pain and discomfort. She has moderate bloating. She does get some minor gas and belching. She has nausea and early satiety. She does report postprandial abdominal pain. She will go up to 2 weeks without a bowel movement and then have diarrhea. She sometimes will have regular bowel function. She has noted black/melanotic stools as well as some bright red blood. She was tested Hemoccult positive. She reports no use of Pepto-Bismol. She reports no weight loss but does have fluctuating weight. She has rare heartburn. She has no dysphagia. This is her first upper endoscopy. Procedure: Prior to the procedure, a history and physical exam was performed, and patient's medications and allergies were reviewed. The risks, benefits and alternatives of the sedation and procedure were discussed with the patient. All questions were answered and informed consent was obtained. The patient was brought to the procedure room. Patient identification and proposed procedure were verified by the physician and the nurse. The patient was placed in a left lateral decubitus position and the scope was passed under direct vision. Throughout the procedure, the patient's blood pressure, pulse, and oxygen saturations were monitored continuously. The upper GI endoscopy was accomplished without difficulty. The patient tolerated the procedure well. Findings: The scope was passed directly into the upper esophagus and advanced to the third portion of the duodenum. The post bulbar duodenum and duodenal bulb were normal with normal mucosa and conniventes. The scope was withdrawn through a normal duodenal bulb and pylorus into the stomach. There was bile reflux with linear reactive gastropathy of the antrum and body. The remainder of the antrum, body and fundus of the stomach were grossly normal. Upon retroflexion there was no hiatal hernia. 2 biopsies were taken in the antrum and along the lesser curvature for histology to rule out gastritis and/or H pylori. The scope was then withdrawn into the esophagus. There was no evidence of reflux esophagitis or Campos's. A biopsy was taken at the GE junction. There were some tertiary contractions and mild esophageal dysmotility. The remainder of the esophageal mucosa was normal. Impression: 1. Bile reflux with linear reactive gastropathy 2. Nonerosive GERD Plan: I will follow-up the biopsies. I do feel that the patient has functional dyspepsia and functional bowel disease. We will discuss additional dietary measures and treatment options. I will proceed with diagnostic colonoscopy.
--- NOTE | 2020-06-02 10:57 | P.PCN_ITS ---
[facility] Procedure Note Procedure Note:: Colonoscopy Procedure Report: Colonoscopy with cold biopsy and monopolar ablation/coagulation of internal hemorrhoids to destruction Endoscopist: Josue Lugo II, MD Referring physician: Augustin Locke MD Date of Procedure: June 02, 2020 Equipment: Olympus 180 variable stiffness pediatric colonoscope Sedation: MAC sedation Indication: Ms. Cowan is a 19-year-old female with digestive difficulties. She has had generalized abdominal discomfort that has worsened over the last year. She did have some minor improvement after cholecystectomy in February 2020. She may go up to 2 weeks without a bowel movement and then develop regular bowel movements or diarrhea. She has moderate bloating. She does report postprandial abdominal pain. She also has seen some bright red rectal bleeding and some black stools. She has not taken Pepto-Bismol. She reports fluctuating weight. She does report that she has grandparents on both sides of her family with colon cancer. This is her first colonoscopy performed for diagnostic purposes. Procedure: Prior to the procedure, a history and physical exam was performed, and patient's medications and allergies were reviewed. The risks, benefits and alternatives of the sedation and procedure were discussed with the patient. All questions were answered and informed consent was obtained. The patient was brought to the procedure room. Patient identification and proposed procedure were verified by the physician and the nurse. The patient was placed in a left lateral decubitus position and the scope was passed under direct vision. Throughout the procedure, the patient's blood pressure, pulse, and oxygen saturations were monitored continuously. The colonoscopy was accomplished without difficulty. The patient tolerated the procedure well. Findings: On digital rectal examination there was normal rectal tone. There were no external hemorrhoids. The colonoscope was introduced through the anal canal to the rectum and advanced to the cecum. The ileocecal valve and appendiceal orifice were identified. The scope was advanced a short distance into the ileum which appeared grossly normal. The scope was then withdrawn into the colon. There were 2 diminutive 3 mm polyps in the descending colon that were both removed via cold biopsy and did appear to be hyperplastic. The remaining cecum, ascending, transverse, descending, sigmoid and rectum were grossly normal. There were no mucosal abnormalities identified. Upon retroflexion within the rectum there were grade 1-2 internal hemorrhoids.2 of the columns of internal hemorrhoids were ablated using monopolar ablation/coagulation to destruction. The preparation was excellent throughout with [place] Preparation Score of 9. The cecal time was 10 minutes. Impression: 1. Diminutive descending colon polyps x2?rule out hyperplastic polyps 2. Grade 1-2 internal hemorrhoids status post monopolar ablation/coagulation Plan: I do suspect that her bright red rectal bleeding is hemorrhoidal. She also has IBS constipation and we will discuss dietary and treatment options for motility and visceral sensitivity. I will follow-up the polyp histology. If these are hyperplastic polyps, she will not require surveillance again until screening age (age 43 especially with family history).
[2020-06-02 11:00] VITALS: BP 84/40; PULSE 69; RESP 12; TEMP 36.6; O2SAT 98
[2020-06-02 11:10] VITALS: BP 92/50; PULSE 65; RESP 12; O2SAT 98
[2020-06-02 11:20] VITALS: BP 99/57; PULSE 78; RESP 16; O2SAT 100
[2020-06-02 11:30] VITALS: BP 107/51; PULSE 72; RESP 16; TEMP 36.6; O2SAT 99
== END 2020-06-02 12:06 | disposition home or self-care (01) ==
LOC: OUTP 09:31
PROVIDERS: PCP Internal Medicine Adolescent Medicine; Visit Provider Internal Medicine Gastroenterology
PROC: 0DJ08ZZ Inspection of Upper Intestinal Tract, Via Natural or Artificial Opening Endoscopic (ICD-10-PCS; CPT 43235; principal; 2020-06-02 10:30)
DX: K63.5 Polyp of colon (principal); K64.0 First degree hemorrhoids; K21.9 Gastro-esophageal reflux disease without esophagitis; K31.9 Disease of stomach and duodenum, unspecified; F41.9 Anxiety disorder, unspecified; F32.9 Major depressive disorder, single episode, unspecified; Z96.22 Myringotomy tube(s) status; Z90.89 Acquired absence of other organs; Z90.49 Acquired absence of other specified parts of digestive tract; Z72.0 Tobacco use; Z82.3 Family history of stroke; Z82.49 Family history of ischemic heart disease and other diseases of the circulatory system
CPT/HCPCS: 46930; 45380; 43239

== ENCOUNTER → 2020-06-10 14:44 | Outpatient (CLI) | payer OTHER, SELFPAY ==
--- NOTE | 2020-06-10 14:45 | US_ITS ---
PROCEDURE: US TRANSVAGINAL CLINICAL INDICATION: US T/V- f/u on ovarian cyst COMPARISON: US PTV US PELVIS-TRANSVAGINAL ONLY from 01/14/2017 FINDINGS: UTERUS: 7cm x 5cmx 4cm with a combined endometrial thickness of 1.7mm LEFT OVARY: [id number] with a volume of 4ml. RIGHT OVARY: [id number] with a volume of 6.1ml. The uterus has an unremarkable appearance. There are bilateral ovarian follicles with no dominant cyst or mass evident. There is a small amount fluid in the cul-de-sac. IMPRESSION: Amount fluid in the cul-de-sac otherwise unremarkable pelvic ultrasound Dictated by: Jakob Price MD 06/10/2020 19:16 Jakob Price MD in [place] 06/10/2020 19:16
== END ==
PROVIDERS: PCP Internal Medicine Adolescent Medicine; Visit Provider Obstetrics & Gynecology
DX: N83.209 Unspecified ovarian cyst, unspecified side (principal)
CPT/HCPCS: 76830

== ENCOUNTER → 2020-06-18 14:35 | Outpatient (CLI) | payer OTHER, SELFPAY ==
[2020-06-18 15:03] LABS: Basophils # 0.1 K/mm3 (0-0.2); Basophils % 0.5 % (0.1-2.0); Eosinophils # 0.6 K/mm3 (0.0-0.4); Eosinophils % 5.5 % (0.1-12.0); Hematocrit 41.5 % (37.0-47.0); Hemoglobin 14.2 g/dL (12.2-16.2); Lymphocytes # 2.3 K/mm3 (0.7-4.5); Lymphocytes % 22.2 % (10-50); Mean Corpuscular HGB Conc 34.2 g/dL (31.8-35.4); Mean Corpuscular Hemoglobin 31.2 pg (27.0-31.2); Mean Corpuscular Volume 91.3 fl (81-99); Mean Platelet Volume 7.4 fl (7.4-10.4); Monocytes # 0.5 K/mm3 (0.1-1.0); Monocytes % 4.6 % (1.7-9.3); Neutrophils # 6.9 K/mm3 (1.8-7.8); Neutrophils % 67.2 % (37.0-80.0); Platelet Count 244 K/mm3 (142-424); Red Blood Count 4.54 M/mm3 (4.20-5.40); Red Cell Distribution Width 12.3 % (11.5-17.5); White Blood Count 10.2 K/mm3 (4.8-10.8)
[2020-06-18 16:17] LABS: Chloride 105 mmol/L (98-107)
[2020-06-18 16:18] LABS: Potassium 4.5 mmoL/L (3.5-5.1); Sodium 140 mmol/L (136-145)
[2020-06-18 16:20] LABS: Alanine Aminotransferase 21 U/L (12-78); Anion Gap 13.5 mEq/L (5-15); Aspartate Amino Transferase 28 U/L (14-36); Blood Urea Nitrogen 8 mg/dl (7-17); Carbon Dioxide 26 mmol/L (22.0-30.0); Estimated Glomerular Filt Rate 106 ml/min (>60); GFR (African American) 128 ML/MIN (>60)
[2020-06-18 16:21] LABS: Albumin Level 4.6 g/dl (3.5-5.0); Alkaline Phosphatase 61 U/L (38-126); Bilirubin,Total 0.3 mg/dl (0.2-1.3); Calcium 9.4 mg/dl (8.4-10.2); Globulin 2.3 g/dL (1.3-3.2); Glucose 101 mg/dl (74-100); Total Protein,Serum 6.9 g/dl (6.3-8.2)
== END ==
PROVIDERS: Visit Provider Internal Medicine Adolescent Medicine
DX: R10.30 Lower abdominal pain, unspecified (principal); K92.1 Melena
CPT/HCPCS: 36415; 80053; 85025

== ENCOUNTER 2020-07-15 15:59 | Outpatient (RCR) | payer OTHER, SELFPAY | END 2020-07-15 16:45 | disposition home or self-care (01) | LOC: PT 15:59 | PROVIDERS: Visit Provider Internal Medicine Adolescent Medicine | DX: M25.571 Pain in right ankle and joints of right foot (principal); S93.491A Sprain of other ligament of right ankle, initial encounter ==

== ENCOUNTER → 2020-07-15 16:10 | Outpatient (CLI) | payer OTHER, SELFPAY ==
--- NOTE | 2020-07-15 16:14 | XR_ITS ---
PROCEDURE: XR ANKLE RT MIN 3V CLINICAL INDICATION: ACUTE RT ANKLE PAIN COMPARISON: CR ANKL3 ANKLE-LT-3 VIEWS from 12/17/2014 FINDINGS: No fracture or dislocation. No lytic or blastic change. There is normal mineralization. The joint spaces are well-preserved. No significant degenerative/arthritic changes. No erosive changes evident. Other findings:None. IMPRESSION: No acute findings. Dictated by: Jakob Price MD 07/15/2020 16:27 Jakob Price MD in [place] 07/15/2020 16:27
== END ==
PROVIDERS: PCP Internal Medicine Adolescent Medicine; Visit Provider Internal Medicine Adolescent Medicine
DX: M25.571 Pain in right ankle and joints of right foot (principal)
CPT/HCPCS: 73610

== ENCOUNTER → 2020-07-31 15:47 | Outpatient (CLI) | payer OTHER, SELFPAY ==
[2020-07-31 17:48] LABS: HCG,Quantitative < 2 mIU/ml (0-5.42)
== END ==
PROVIDERS: Visit Provider Obstetrics & Gynecology
DX: Z32.00 Encounter for pregnancy test, result unknown (principal)
CPT/HCPCS: 36415; 84702

== ENCOUNTER → 2020-09-05 11:36 | Outpatient (CLI) | payer OTHER, SELFPAY ==
[2020-09-05 12:03] LABS: Basophils # 0.1 K/mm3 (0-0.2); Basophils % 0.7 % (0.1-2.0); Eosinophils # 0.7 K/mm3 (0.0-0.4); Eosinophils % 6.8 % (0.1-12.0); Hemoglobin 13.6 g/dL (12.2-16.2); Lymphocytes # 3.3 K/mm3 (0.7-4.5); Lymphocytes % 30.6 % (10-50); Mean Corpuscular HGB Conc 32.5 g/dL (31.8-35.4); Mean Corpuscular Hemoglobin 29.9 pg (27.0-31.2); Mean Platelet Volume 7.5 fl (7.4-10.4); Monocytes # 0.5 K/mm3 (0.1-1.0); Monocytes % 4.7 % (1.7-9.3); Neutrophils # 6.2 K/mm3 (1.8-7.8); Neutrophils % 57.2 % (37.0-80.0); Platelet Count 272 K/mm3 (142-424); Red Blood Count 4.57 M/mm3 (4.20-5.40); Red Cell Distribution Width 12.8 % (11.5-17.5); White Blood Count 10.8 K/mm3 (4.8-10.8)
[2020-09-05 14:03] LABS: Chloride 105 mmol/L (98-107); Potassium 4.3 mmoL/L (3.5-5.1); Sodium 139 mmol/L (136-145)
[2020-09-05 14:05] LABS: Alanine Aminotransferase 17 U/L (12-78); Aspartate Amino Transferase 26 U/L (14-36); Blood Urea Nitrogen 4 mg/dl (7-17); Estimated Glomerular Filt Rate 106 ml/min (>60); GFR (African American) 128 ML/MIN (>60)
[2020-09-05 14:06] LABS: Albumin Level 4.8 g/dl (3.5-5.0); Albumin/Globulin Ratio 1.7 (1.1-1.8); Alkaline Phosphatase 61 U/L (38-126); Anion Gap 13.3 mEq/L (5-15); Bilirubin,Total 0.3 mg/dl (0.2-1.3); Calcium 9.3 mg/dl (8.4-10.2); Carbon Dioxide 25 mmol/L (22.0-30.0); Globulin 2.9 g/dL (1.3-3.2); Glucose 91 mg/dl (74-100); Total Protein,Serum 7.7 g/dl (6.3-8.2)
[2020-09-05 14:35] LABS: Thyroid Stimulating Hormone 2.78 uIU/mL (0.465-4.68)
== END ==
PROVIDERS: Visit Provider Nurse Practitioner Family
DX: R00.2 Palpitations (principal)
CPT/HCPCS: 36415; 80053; 84443; 85025

== ENCOUNTER → 2020-11-03 12:01 | Outpatient (CLI) | payer OTHER, SELFPAY ==
[2020-11-03 13:09] LABS: HCG,Quantitative 8 mIU/ml (0-5.42)
== END ==
PROVIDERS: Visit Provider Obstetrics & Gynecology
DX: Z34.90 Encounter for supervision of normal pregnancy, unspecified, unspecified trimester (principal)
CPT/HCPCS: 36415; 84702

== ENCOUNTER → 2020-11-05 11:29 | Outpatient (CLI) | payer OTHER, SELFPAY ==
[2020-11-05 12:52] LABS: HCG,Quantitative < 2 mIU/ml (0-5.42)
== END ==
PROVIDERS: Visit Provider Obstetrics & Gynecology
DX: Z34.90 Encounter for supervision of normal pregnancy, unspecified, unspecified trimester (principal)
CPT/HCPCS: 36415; 84702

== ENCOUNTER → 2020-12-01 14:24 | Outpatient (CLI) | payer OTHER, SELFPAY ==
[2020-12-01 16:01] LABS: HCG,Quantitative 74 mIU/ml (0-5.42)
== END ==
PROVIDERS: Visit Provider Obstetrics & Gynecology
DX: Z32.00 Encounter for pregnancy test, result unknown (principal)
CPT/HCPCS: 36415; 84702

== ENCOUNTER → 2020-12-03 11:09 | Outpatient (CLI) | payer OTHER, SELFPAY ==
[2020-12-03 12:09] LABS: HCG,Quantitative 224 mIU/ml (0-5.42)
== END ==
PROVIDERS: Visit Provider Obstetrics & Gynecology
DX: Z34.90 Encounter for supervision of normal pregnancy, unspecified, unspecified trimester (principal)
CPT/HCPCS: 36415; 84702

== ENCOUNTER → 2020-12-15 11:43 | Outpatient (CLI) | payer OTHER, SELFPAY ==
[2020-12-15 12:10] LABS: Basophils # 0.1 K/mm3 (0-0.2); Basophils % 0.4 % (0.1-2.0); Eosinophils # 0.4 K/mm3 (0.0-0.4); Hematocrit 40.9 % (37.0-47.0); Hemoglobin 13.6 g/dL (12.2-16.2); Lymphocytes % 22.4 % (10-50); Mean Corpuscular HGB Conc 33.2 g/dL (31.8-35.4); Mean Corpuscular Volume 90.3 fl (81-99); Mean Platelet Volume 7.4 fl (7.4-10.4); Monocytes # 0.4 K/mm3 (0.1-1.0); Monocytes % 2.8 % (1.7-9.3); Neutrophils # 9.5 K/mm3 (1.8-7.8); Neutrophils % 71.5 % (37.0-80.0); Platelet Count 286 K/mm3 (142-424); Red Blood Count 4.53 M/mm3 (4.20-5.40); White Blood Count 13.3 K/mm3 (4.8-10.8)
[2020-12-15 13:37] LABS: HCG,Quantitative 18483 mIU/ml (0-5.42)
[2020-12-16 08:33] LABS: HIV Screen 4th Generation wRfx Non Reactive (Non Reactive)
[2020-12-17 18:03] LABS: Hepatitis B Surface Antigen Negative (Negative); Hepatitis C Antibody <0.1 s/co ratio (0.0-0.9); Rapid Plasma Reagin Ab Titer Non Reactive (NonRea<1:1); Rubella Antibodies, IgG 1.77 index (Immune >0.99)
== END ==
PROVIDERS: Visit Provider Obstetrics & Gynecology
DX: Z34.90 Encounter for supervision of normal pregnancy, unspecified, unspecified trimester (principal)
CPT/HCPCS: 36415; 84702; 85025; 86592; 86703; 86762; 86850; 87340; 87380; G0432

== ENCOUNTER → 2020-12-29 13:19 | Outpatient (CLI) | payer OTHER, SELFPAY ==
--- NOTE | 2020-12-29 13:19 | US_ITS ---
PROCEDURE: US OB <= 14 WEEKS FETUS CLINICAL INDICATION: Evaluate dates COMPARISON: US OBLM US OB limited position from 10/21/2017 FINDINGS: An intrauterine gestational sac is present with a pole with a crown-rump length of 1.47cm correlating to gestational age of 7weeks 6days. heart tones are present with an FHR of 163bpm. Yolk sac is noted. Incidental note made of a small left corpus luteum IMPRESSION: Live IUP at 7 weeks 6 days. Estimated due date by Ultrasound is 08/11/2021 Dictated by: Jakob Price MD 12/30/2020 09:56 Jakob Price MD in [place] 12/30/2020 09:56
== END ==
PROVIDERS: PCP Internal Medicine Adolescent Medicine; Visit Provider Obstetrics & Gynecology
DX: Z34.90 Encounter for supervision of normal pregnancy, unspecified, unspecified trimester (principal)
CPT/HCPCS: 76801

== ENCOUNTER → 2021-01-09 12:26 | Outpatient (CLI) | payer OTHER, SELFPAY ==
[2021-01-09 13:26] LABS: Adenovirus,PCR Not Detected (NotDetected); Bordetella Pertussis Not Detected (NotDetected); Chlamydophila Pneumoniae, PCR Not Detected (NotDetected); Coronavirus 19, PCR Not Detected (NotDetected); Coronavirus 229E Not Detected (NotDetected); Coronavirus NL63 Not Detected (NotDetected); Coronavirus OC43 Not Detected (NotDetected); Coronovirus HKU1,PCR Not Detected (NotDetected); Human Metapneumovirus Not Detected (NotDetected); Influenza A, PCR Not Detected (NotDetected); Influenza AH1, 2009 Not Detected (NotDetected); Influenza AH1, PCR Not Detected (NotDetected); Influenza AH3,PCR Not Detected (NotDetected); Influenza B, PCR Not Detected (NotDetected); Mycoplasma Pneumoniae, PCR Not Detected (NotDetected); Parainfluenza 1, PCR Not Detected (NotDetected); Parainfluenza 2, PCR Not Detected (NotDetected); Parainfluenza 3, PCR Not Detected (NotDetected); Parainfluenza 4, PCR Not Detected (NotDetected); Respiratory Syncytial Virus Not Detected (NotDetected); Rhinovirus/Enterovirus Not Detected (NotDetected)
== END ==
PROVIDERS: PCP Internal Medicine Adolescent Medicine; Visit Provider Internal Medicine Adolescent Medicine
DX: Z20.822 Contact with and (suspected) exposure to COVID-19 (principal); R06.02 Shortness of breath
CPT/HCPCS: 87581; 87633; 87798

== ENCOUNTER 2021-02-14 11:15 | Emergency (ER) | payer OTHER, SELFPAY ==
[2021-02-14 11:28] VITALS: BP 120/68; PULSE 113; RESP 19; TEMP 36.6; O2SAT 96; BMI 23.8
--- NOTE | 2021-02-14 11:41 | HMH.EDUTC ---
[facility] [place] Clinical Impression: Insect bite Qualifiers: Encounter type: initial encounter Site of insect bite: lower leg Laterality: left Qualified Code(s): S80.862A - Insect bite (nonvenomous), left lower leg, initial encounter; W57.XXXA - Bitten or stung by nonvenomous insect and other nonvenomous arthropods, initial encounter Disposition: Home, Self-Care Condition on Discharge: Good Instructions: How to Care for an Insect Bite or Sting, DI for Insect Bites and Stings Additional Instructions: watch for s/s infection keep area clean and dry antibiotics as ordered Prescriptions: cephALEXin [Cephalexin 500mg Tab] 500 mg PO BID 7 Days #14 tab Prescription Printed Referrals: Augustin Locke MD [Primary Care Provider] - Time of Disposition: 12:00 Medical Decision Making - Naun Inquiry Pt receiving controlled substance: No Vital Signs: 02/14/21 11:28 Temperature 97.8 F Temperature Source Oral Pulse Rate [Right Brachial] 113 H Respiratory Rate 19 Blood Pressure [Right Arm] 120/68 Blood Pressure Mean [Right Arm] 85 Blood Pressure Source [Right Arm] Automatic Cuff Blood Pressure Position [Right Arm] Sitting 02 Sat by Pulse Oximetry 96 Oxygen Delivery Method Room Air [facility] - General Chief complaint: Urgent [facility] Stated complaint: spider bite right leg Time Seen by Provider: 02/14/21 11:41 Mode of Arrival: Ambulatory Source of Information: Patient Limitations: No Limitations Description of Symptoms (Recalled from Triage Doc. by RN): PATIENT C/O PAINFUL SPIDER BITE TO RIGHT CALF X 2 DAYS HEENT Symptoms (Recalled from RN notes): No Resp Symptoms (Recalled from RN notes): No Skin Symptoms (Recalled from RN notes): Yes MS Symptoms (Recalled from RN notes): No Functional Status (Recalled from RN notes): WNL - History of Present Illness Provider Complaint: 20 yr old female presents for bug bite to left forearm and rt calf. pt states on she was washing her car when she started itching. pt stats she is 14 wks - Related Data Home Medications Medication Instructions Recorded Confirmed Prenat 115/Iron Fum/Folic/Dss 1 each PO DAILY 02/14/21 02/14/21 [ 19 Tablet] Previous Rx's Medication Instructions Recorded cephALEXin [Cephalexin 500mg Tab] 500 mg PO BID 7 Days #14 tab 02/14/21 Allergies Allergy/AdvReac Type Severity Reaction Status Date / Time penicillin G [PENICILLIN G] Allergy Intermediate Hives Verified 02/13/21 10:28 - Worker's Comp Is this a Worker's Comp case?: No [facility] History - Hepatitis A Screen Drug use history?: No High risk sexual behaviors?: No History of sexually transmitted infection?: No Currently employed?: No Childcare worker?: No Do you have indoor plumbing?: Yes Do you have electricity?: Yes Attestation statement:: This patient has been screened for Hepatitis A risk factors. I have reviewed the patient's past medical history: Yes Medical History: Reports:: Anxiety, Depression, Gastroesophageal Reflux Disease(GERD) Denies:: Cancer, Diabetes Mellitus Type 1, Diabetes Mellitus Type 2, Hypertension, Internal Pacemaker, MRSA, Seizures Other Medical History: Reports: Other. Denies: Blood Transfusion Reaction Comment: Anxiety. Depression. Bi-Polar. ADHD Laterality Cases: Bilateral: Myringotomy (Ear Tubes), Tonsillectomy Other Surgeries: Yes: No Previous Surgery, Cholecystectomy, Colonoscopy, , Other. No: Pacemaker Amputation: No Fractures: No Comment: Ear tubes as child. T&A-2004. Primary C/S--10/21/2017 - Social History Smoking Status: Current every day smoker Tobacco Type: cigarettes # Packs/Day (cigarettes): 1 #Yrs smoked (if former smoker): 20 Alcohol Intake: never Alcohol Intake Frequency:: other Substance Use Type: denies use, marijuana Occupational Status: other Housing: house Household Members: spouse, children - Psychiatric History Pschychiatric History:: Reports:: Anxiety, Bipolar Disorde
[2021-02-14 12:02] VITALS: BP 120/68; PULSE 113; RESP 19; TEMP 36.6; O2SAT 96
== END 2021-02-14 12:05 | disposition home or self-care (01) ==
PROVIDERS: Emergency Provider Nurse Practitioner Family; PCP Internal Medicine Adolescent Medicine
DX: S80.861A Insect bite (nonvenomous), right lower leg, initial encounter (principal); W57.XXXA Bitten or stung by nonvenomous insect and other nonvenomous arthropods, initial encounter; F41.8 Other specified anxiety disorders; K21.9 Gastro-esophageal reflux disease without esophagitis; Z88.0 Allergy status to penicillin
CPT/HCPCS: 99202; G0463

== ENCOUNTER → 2021-03-27 12:37 | Outpatient (CLI) | payer OTHER, SELFPAY ==
--- NOTE | 2021-03-27 12:38 | US_ITS ---
PROCEDURE: US OB >= 14 WEEKS FETUS CLINICAL INDICATION: OB complete Anatomy exam COMPARISON: US US OB <= 14 WEEKS FETUS from 12/29/2020 FINDINGS: There is a single live fetus which is in breech presentation. heart body motion noted. Cervix is closed measuring 4 cm. Placenta is anterior and grade 1. Complete survey performed and was unremarkable on the submitted images as in PACS. No discrete anomalies identified on survey imaging by technologist. Active fetus. Three-vessel cord with satisfactory umbilical cord insertion. 4- chamber heart noted. Survey of brain & ventricles Unremarkable. Face and neck survey unremarkable. Diaphragm and chest views unremarkable. Abdomen: Both kidneys noted and unremarkable. Stomach noted and satisfactory. Spine: Survey of the spine satisfactory with no anomalies identified nor imaged. Both arms and legs noted. Amniotic Fluid: Adequate. Maternal adnexa: No significant findings. Measurements: Average ultrasound age 20weeks 2days. Gestational Age 20weeks 2days Estimated due date by ultrasound age 1108/12/2021. Estimated weight 342g BPD = 20weeks 3days OFD = 20weeks 6days HC = 20weeks AC = 20weeks 3days FL = 20weeks 2days Growth Percentile= 36% Heart Rate = 158bpm Cerebellum = 20weeks 3days Humerus = 20weeks 3days HC/AC is 1.15 CI is 0.77 FL/BPD is 0.68 FL/AC is 0.22 IMPRESSION: Live IUP in breech presentation with an average ultrasound age of 20 weeks and 2 days. No obvious anomalies. Please see above for detail. Dictated by: Jakob Price MD 03/27/2021 13:45 Jakob Price MD in [place] 03/27/2021 13:45
== END ==
PROVIDERS: PCP Internal Medicine Adolescent Medicine; Visit Provider Obstetrics & Gynecology
DX: Z34.90 Encounter for supervision of normal pregnancy, unspecified, unspecified trimester (principal)
CPT/HCPCS: 76805

== ENCOUNTER → 2021-05-11 09:27 | Outpatient (CLI) | payer OTHER, SELFPAY ==
[2021-05-11 10:05] LABS: Glucose,Fasting 101 mg/dl (74-100)
[2021-05-11 10:15] LABS: Basophils # 0.1 K/mm3 (0-0.2); Basophils % 0.4 % (0.1-2.0); Eosinophils # 0.4 K/mm3 (0.0-0.4); Eosinophils % 2.2 % (0.1-12.0); Hematocrit 37.8 % (37.0-47.0); Hemoglobin 12.4 g/dL (12.2-16.2); Lymphocytes # 2.8 K/mm3 (0.7-4.5); Lymphocytes % 16.8 % (10-50); Mean Corpuscular HGB Conc 32.8 g/dL (31.8-35.4); Mean Corpuscular Hemoglobin 30.6 pg (27.0-31.2); Mean Corpuscular Volume 93.1 fl (81-99); Monocytes # 0.6 K/mm3 (0.1-1.0); Monocytes % 3.6 % (1.7-9.3); Neutrophils # 12.9 K/mm3 (1.8-7.8); Platelet Count 312 K/mm3 (142-424); Red Blood Count 4.06 M/mm3 (4.20-5.40); Red Cell Distribution Width 13.5 % (11.5-17.5); White Blood Count 16.8 K/mm3 (4.8-10.8)
[2021-05-11 10:18] LABS: MANUAL DIFFERENTIAL MANUAL DIFFERENTIAL (MANUAL DIFF)
[2021-05-11 12:00] LABS: Glucose 1 Hour 166 mg/dL (74-100)
[2021-05-11 14:20] LABS: Lymphocytes % 10 % (10-50); Monocytes % 10 % (2-9); Neutrophils % 80 % (42-76); Total Cells Counted 100
[2021-05-11 14:21] LABS: Hypochromasia 1+; Platelet Estimate Normal
== END ==
PROVIDERS: Visit Provider Obstetrics & Gynecology
DX: Z34.90 Encounter for supervision of normal pregnancy, unspecified, unspecified trimester (principal)
CPT/HCPCS: 36415; 82951; 85007; 85025

== ENCOUNTER 2021-05-12 10:00 | Emergency (ER) | payer OTHER, SELFPAY ==
[2021-05-12 12:01] VITALS: BP 0/0; PULSE 0; RESP 0; TEMP -17.7; TEMP 0
== END 2021-05-12 12:02 | disposition left against medical advice (07) ==
LOC: UTC 10:02
PROVIDERS: Emergency Provider Nurse Practitioner Family; PCP Internal Medicine Adolescent Medicine
DX: Z53.21 Procedure and treatment not carried out due to patient leaving prior to being seen by health care provider (principal)
CPT/HCPCS: 99202; G0463

== ENCOUNTER → 2021-05-12 10:39 | Outpatient (CLI) | payer OTHER, SELFPAY ==
[2021-05-12 11:15] LABS: Glucose,Fasting 111 mg/dl (74-100)
[2021-05-12 13:51] LABS: Glucose 1 Hour 178 mg/dL (74-100)
[2021-05-12 14:12] LABS: Glucose 2 Hour 169 mg/dL (74-100)
[2021-05-12 14:30] LABS: Glucose 3 Hour 106 mg/dL (74-100)
== END ==
PROVIDERS: Visit Provider Obstetrics & Gynecology
DX: Z34.90 Encounter for supervision of normal pregnancy, unspecified, unspecified trimester (principal)
CPT/HCPCS: 36415; 82951

== ENCOUNTER → 2021-05-12 13:12 | Outpatient (CLI) | payer OTHER, SELFPAY ==
--- NOTE | 2021-05-12 13:17 | XR_ITS ---
PROCEDURE: XR KNEE RT 3V CLINICAL INDICATION: PAIN IN LATERAL PORTION OF RT KNEE COMPARISON: CR XR KNEE RT 3V from 01/13/2020 FINDINGS: No fracture or dislocation. No lytic or blastic change. There is normal mineralization. The joint spaces are well-preserved. No significant degenerative/arthritic changes. No erosive changes evident. Other findings:Nonspecific small foci of soft tissue calcification in the prepatellar and infrapatellar region IMPRESSION: No acute findings. Dictated by: Jakob Price MD 05/12/2021 13:32 Jakob Price MD in [facility] 05/12/2021 13:32
== END ==
PROVIDERS: PCP Internal Medicine Adolescent Medicine; Visit Provider Nurse Practitioner Family
DX: M25.561 Pain in right knee (principal)
CPT/HCPCS: 73562

== ENCOUNTER 2021-06-12 10:49 | Outpatient (CLI) | payer OTHER, SELFPAY ==
[2021-06-12 10:59] VITALS: BMI 24.6
[2021-06-12 11:07] LABS: Microscopic, Urine URINE MICROSCOPIC (MICROSCOPIC)
[2021-06-12 11:11] LABS: Appearance,Urine CLEAR (Clear); Bilirubin,Urine Negative (Negative); Blood, Urine Negative (Negative); Color,Urine YELLOW (Yellow); Glucose,Urine (UA) Negative (Negative); Ketones,Urine Negative (Negative); Leukocyte Esterase,Urine Negative (Negative); Nitrate,Urine Negative (Negative); PH,Urine 6.5 (5.0-8.5); Protein,Urine Negative (Negative); Urobilinogen,Urine 0.2 EU/dl (0.2)
[2021-06-12 11:21] LABS: Benzodiazepines Screen,Urine Negative ng/ml (<200)
[2021-06-12 11:22] LABS: Amphetamine/Metha Screen,Urine Negative ng/ml (<1000); Barbiturates Screen,Urine Negative ng/ml (<200)
[2021-06-12 11:23] LABS: Methadone Screen,Urine Negative ng/ml (<300)
[2021-06-12 11:24] LABS: Cannabinoid Screen,Urine Negative ng/ml (<50); Cocaine Screen,Urine Negative ng/ml (<300)
[2021-06-12 11:25] LABS: Opiate Screen,Urine Negative ng/ml (<300)
[2021-06-12 11:26] LABS: Phencyclidine Screen,Urine Negative ng/ml (<25); WBC,Urine Occasional #/hpf (0-3)
== END 2021-06-12 12:16 | disposition home or self-care (01) ==
LOC: OBOUT 10:51 → OB 10:51
PROVIDERS: PCP Internal Medicine Adolescent Medicine; Visit Provider Obstetrics & Gynecology
DX: O26.893 Other specified pregnancy related conditions, third trimester (principal); Z3A.31 31 weeks gestation of pregnancy; M54.5 Low back pain
CPT/HCPCS: 59025; 80305; 81001; G0463

== ENCOUNTER → 2021-06-26 13:47 | Outpatient (CLI) | payer OTHER, SELFPAY ==
--- NOTE | 2021-06-26 13:47 | US_ITS ---
PROCEDURE: US OB BIOPHYSICAL PROFILE CLINICAL INDICATION: growth and AMPARO Gestational diabetes TECHNIQUE: Transabdominal imaging FINDINGS: The following parameters are obtained: Average ultrasound age is Average 33weeks Estimated due date by ultrasound is 08/14/2021. Estimated weight is 2052 g which is 24th percentile. BPD: 33weeks 5days OFD: 33weeks 5days HC: 33 weeks 2 days AC: 33 weeks 0 days FL: 32 weeks 2 days heart rate: 146bpm bpm. HC/AC: 1.03 Cephalic index: 0.78 FL/BPD: 0.75 FL/AC: 0.21 Amniotic fluid index: 10.53cm Qualitative AFV: 2 breathing movements: 2 Gross body movements: 2 Tone: 2 Biophysical profile score: 8 There is a single live fetus which is in cephalic presentation. heart body motion noted. The cervix is closed measuring approximately 4 cm. The placenta is anterior and grade 2. No previa or abruption. IMPRESSION: Live IUP at 33 weeks in cephalic presentation. Estimated weight 2052 g which is 24th percentile. Biophysical profile 8 of 8. Normal amniotic fluid index of 11 cm Dictated by: Jakob Price MD 06/29/2021 09:54 Jakob Price MD in [facility] 06/29/2021 09:54
== END ==
PROVIDERS: PCP Internal Medicine Adolescent Medicine; Visit Provider Obstetrics & Gynecology
DX: O36.5990 Maternal care for other known or suspected poor fetal growth, unspecified trimester, not applicable or unspecified (principal); Z34.90 Encounter for supervision of normal pregnancy, unspecified, unspecified trimester
CPT/HCPCS: 76816; 76819

== ENCOUNTER → 2021-07-10 14:21 | Outpatient (CLI) | payer OTHER, SELFPAY | PROVIDERS: Visit Provider Obstetrics & Gynecology | DX: Z34.90 Encounter for supervision of normal pregnancy, unspecified, unspecified trimester (principal) | CPT/HCPCS: 86403 ==

== ENCOUNTER → 2021-07-21 10:18 | Outpatient (CLI) | payer OTHER, SELFPAY ==
--- NOTE | 2021-07-21 10:18 | US_ITS ---
PROCEDURE: US OB BIOPHYSICAL PROFILE CLINICAL INDICATION: BPP, Growth AMPARO Gestational diabetes TECHNIQUE: FINDINGS: The following parameters are obtained: There is a single live fetus present which is in cephalic presentation. heart body and respiratory motion noted. The placenta is anterior and grade 2. No previa or abruption. The cervix is closed and measures 4 cm. Average ultrasound age is Average 35weeks Estimated due date by ultrasound is 08/25/2021. Estimated weight is 2,526g. This is 10th percentile indicating intrauterine growth restriction BPD: 35weeks 3days OFD: 35weeks 3days HC: 34 weeks 6 days AC: 34 weeks 5 days FL: 35 weeks 1 day heart rate: 172bpm bpm. HC/AC: 1.01 Cephalic index: 0.79 FL/BPD: 0.79 FL/AC: 0.22 Amniotic fluid index: 11.36cm Qualitative AFV: 2 breathing movements: 2 Gross body movements: 2 Tone: 2 Biophysical profile score: 8 IMPRESSION: Live IUP at 35 weeks. Estimated weight is 2562 g which is 10th percentile indicating intrauterine growth restriction. Biophysical profile 8 of 8 AMPARO normal at 11 cm Anterior grade 2 placenta Dictated by: Jakob Price MD 07/21/2021 18:40 Jakob Price MD in [place] 07/21/2021 18:40
== END ==
PROVIDERS: PCP Internal Medicine Adolescent Medicine; Visit Provider Obstetrics & Gynecology
DX: O24.419 Gestational diabetes mellitus in pregnancy, unspecified control (principal)
CPT/HCPCS: 76816; 76819

== ENCOUNTER → 2021-07-26 11:19 | Outpatient (CLI) | payer OTHER, SELFPAY ==
[2021-07-27 14:08] LABS: Basophils # 0.1 K/mm3 (0-0.2); Basophils % 0.9 % (0.1-2.0); Eosinophils # 0.2 K/mm3 (0.0-0.4); Eosinophils % 1.4 % (0.1-12.0); Hematocrit 40.1 % (37.0-47.0); Hemoglobin 12.4 g/dL (12.2-16.2); Lymphocytes # 2.6 K/mm3 (0.7-4.5); Lymphocytes % 18.7 % (10-50); Mean Corpuscular Volume 96.7 fl (81-99); Mean Platelet Volume 9.8 fl (7.4-10.4); Monocytes # 0.4 K/mm3 (0.1-1.0); Neutrophils # 10.6 K/mm3 (1.8-7.8); Platelet Count 356 K/mm3 (142-424); Red Blood Count 4.15 M/mm3 (4.20-5.40); Red Cell Distribution Width 14.2 % (11.5-17.5); White Blood Count 13.9 K/mm3 (4.8-10.8)
[2021-07-27 14:26] LABS: Alanine Aminotransferase 9 U/L (12-78); Albumin/Globulin Ratio 1.7 (1.1-1.8); Alkaline Phosphatase 152 U/L (38-126); Anion Gap 11.1 mEq/L (5-15); Aspartate Amino Transferase 18 U/L (14-36); Bilirubin,Total 0.4 mg/dl (0.2-1.3); Blood Urea Nitrogen 4 mg/dl (7-17); Carbon Dioxide 22 mmol/L (22.0-30.0); Chloride 106 mmol/L (98-107); Estimated Glomerular Filt Rate 154 ml/min (>60); GFR (African American) 187 ML/MIN (>60); Globulin 2.4 g/dL (1.3-3.2); Glucose 69 mg/dl (74-100); Potassium 4.1 mmoL/L (3.5-5.1); Sodium 135 mmol/L (136-145); Total Protein,Serum 6.4 g/dl (6.3-8.2)
== END ==
PROVIDERS: PCP Internal Medicine Adolescent Medicine; Visit Provider Obstetrics & Gynecology
DX: Z34.90 Encounter for supervision of normal pregnancy, unspecified, unspecified trimester (principal)
CPT/HCPCS: 36415; 80053; 85025; C9803; U0003; U0005

== ENCOUNTER 2021-07-28 04:53 | Inpatient (IN) | payer OTHER, SELFPAY ==
--- NOTE | 2021-07-24 14:07 | SUR.PREOP ---
Left msg instructing pt to come in for COVID swab on Friday 07/27
[2021-07-28] VITALS (21 sets, daily range): BP systolic 110–139; BP diastolic 55–95; PULSE 70–90; RESP 16–18; TEMP 36.3–37.1; O2SAT 96–99; BMI 26.0
[2021-07-28 06:12] LABS: Coronavirus 19, PCR Not Detected (NotDetected); Influenza A, PCR Not Detected (NotDetected); Influenza B, PCR Not Detected (NotDetected); Microscopic, Urine URINE MICROSCOPIC (MICROSCOPIC)
[2021-07-28 06:18] LABS: Appearance,Urine CLEAR (Clear); Bilirubin,Urine Negative (Negative); Blood, Urine Negative (Negative); Color,Urine YELLOW (Yellow); Glucose,Urine (UA) Negative (Negative); Ketones,Urine 1+ (Negative); Leukocyte Esterase,Urine Negative (Negative); Nitrate,Urine Negative (Negative); PH,Urine 6.5 (5.0-8.5); Protein,Urine Negative (Negative); Urobilinogen,Urine 0.2 EU/dl (0.2)
[2021-07-28 06:20] LABS: Basophils # 0.1 K/mm3 (0-0.2); Basophils % 0.6 % (0.1-2.0); Eosinophils # 0.2 K/mm3 (0.0-0.4); Eosinophils % 1.3 % (0.1-12.0); Hematocrit 41.2 % (37.0-47.0); Hemoglobin 13.4 g/dL (12.2-16.2); Lymphocytes # 3.2 K/mm3 (0.7-4.5); Lymphocytes % 19.1 % (10-50); Mean Corpuscular HGB Conc 32.4 g/dL (31.8-35.4); Mean Corpuscular Hemoglobin 30.2 pg (27.0-31.2); Mean Corpuscular Volume 93.1 fl (81-99); Mean Platelet Volume 8.6 fl (7.4-10.4); Monocytes # 0.6 K/mm3 (0.1-1.0); Monocytes % 3.6 % (1.7-9.3); Neutrophils # 12.7 K/mm3 (1.8-7.8); Neutrophils % 75.3 % (37.0-80.0); Platelet Count 374 K/mm3 (142-424); Red Blood Count 4.43 M/mm3 (4.20-5.40); Red Cell Distribution Width 14.2 % (11.5-17.5); White Blood Count 16.8 K/mm3 (4.8-10.8)
[2021-07-28 06:25] LABS: MANUAL DIFFERENTIAL MANUAL DIFFERENTIAL (MANUAL DIFF)
[2021-07-28 06:26] LABS: Anion Gap 15.1 mEq/L (5-15); Blood Urea Nitrogen 6 mg/dl (7-17); Calcium 9.6 mg/dl (8.4-10.2); Carbon Dioxide 20 mmol/L (22.0-30.0); Chloride 105 mmol/L (98-107); Creatinine Clearance Estimated 232 mL/min (50-200); Estimated Glomerular Filt Rate 200 ml/min (>60); GFR (African American) 242 ML/MIN (>60); Glucose 85 mg/dl (74-100); Potassium 4.1 mmoL/L (3.5-5.1); Sodium 136 mmol/L (136-145)
[2021-07-28 06:52] LABS: Barbiturates Screen,Urine Negative ng/ml (<200); Benzodiazepines Screen,Urine Negative ng/ml (<200)
[2021-07-28 06:53] LABS: Amphetamine/Metha Screen,Urine Negative ng/ml (<1000)
[2021-07-28 06:54] LABS: Cannabinoid Screen,Urine Negative ng/ml (<50); Cocaine Screen,Urine Negative ng/ml (<300)
[2021-07-28 06:55] LABS: Methadone Screen,Urine Negative ng/ml (<300)
[2021-07-28 06:56] LABS: Opiate Screen,Urine Negative ng/ml (<300); Phencyclidine Screen,Urine Negative ng/ml (<25)
[2021-07-28 07:28] LABS: Eosinophils % 1 % (0-3); Lymphocytes % 20 % (10-50); Monocytes % 4 % (2-9); Neutrophils % 75 % (42-76); RBC Morphology Normal; Total Cells Counted 100
[2021-07-28 07:29] LABS: Platelet Estimate Normal
--- NOTE | 2021-07-28 07:31 | HMH.ANESCL ---
[facility] Anesthesia Checklist - Patient Identification Patient Identification: Arm Band, Verbal (Name & ) - Structural Data Admitted From: Home Planned Operative Procedure/s: C section Consent for Planned Operative Procedure(s) Verified: Yes Verified Documents: Surgical Consent - Chart Verification Results Verified: CBC, Creatinine - Additional verifications Anesthesia Reactions: No Hx Blood Transfusions: No Blood Transfusion Reaction: No - Airway Assessment C-Spine Mobility Assessed: Yes TMJ Mobility Assessed: Yes Dentition: Dentures-good fit - Neurological Assessment Level of Consciousness: Awake, Alert, Appropriate - Psychosocial Assessment Concerns Regarding Surgery: no issues - Anesthesia Plan Anesthesia Risk discussed: Yes ASA Class: II Anesthesia Type: Spinal [facility] History I have reviewed the patient's past medical history: Yes Medical History: Reports:: Anxiety, Depression, Gastroesophageal Reflux Disease(GERD) Denies:: Cancer, Diabetes Mellitus Type 1, Diabetes Mellitus Type 2, Hypertension, Internal Pacemaker, MRSA, Seizures *Have you ever received a pneumonia vaccine?: No *Have you received a flu vaccine this season?: No Other Medical History: Reports: Other. Denies: Blood Transfusion Reaction Anesthesia experience/problems:: no issues Laterality Cases: Bilateral: Myringotomy (Ear Tubes), Tonsillectomy Other Surgeries: Yes: No Previous Surgery, Cholecystectomy, Colonoscopy, , Other. No: Pacemaker Amputation: No Fractures: No - *Social History Smoking Status: Current every day smoker Tobacco Type: cigarettes # Packs/Day (cigarettes): 1 #Yrs smoked (if former smoker): 20 Alcohol Intake: never Alcohol Intake Frequency:: other Substance Use Type: denies use, marijuana *Occupational Status:: unemployed Housing: house Household Members: spouse, children *Travel in the last 8 weeks: None - Psychiatric History Pschychiatric History:: Reports:: Anxiety, Bipolar Disorder, Depression Family Hx:: Asthma, Cancer, Coronary Artery Disease, Diabetes, Heart Attack, Hyperlipidemia, Hypertension, Kidney Disease, Stroke, Substance abuse, Alcoholism, Mental illness Para: 1
--- NOTE | 2021-07-28 07:41 | HMH.HP ---
*Admission Date: 07/28/21 *Chief complaint: scheduled c section *History of present illness: 20 yo @ 38 0/7 admitted for scheduled elective repeat c section complicated by GDMA2, anxiety, IUGR, tobacco abuse and a history of previous c section with G1 Most recent ultrasound gave EFW 2527gm, which was 10% for gestational age testing has been reassuring and delivery was delayed until 38 weeks because of GDM Medical management for diabetes has been with glucophage, per MFM at [facility] History I have reviewed the patient's past medical history: Yes Medical History: Reports:: Anxiety, Depression, Gastroesophageal Reflux Disease(GERD) Denies:: Cancer, Diabetes Mellitus Type 1, Diabetes Mellitus Type 2, Hypertension, Internal Pacemaker, MRSA, Seizures *Have you ever received a pneumonia vaccine?: No *Have you received a flu vaccine this season?: No Other Medical History: Reports: Other. Denies: Blood Transfusion Reaction Anesthesia experience/problems:: no issues Laterality Cases: Bilateral: Myringotomy (Ear Tubes), Tonsillectomy Other Surgeries: Yes: No Previous Surgery, Cholecystectomy, Colonoscopy, , Other. No: Pacemaker Amputation: No Fractures: No - *Social History Smoking Status: Current every day smoker Tobacco Type: cigarettes # Packs/Day (cigarettes): 1 #Yrs smoked (if former smoker): 20 Alcohol Intake: never Alcohol Intake Frequency:: other Substance Use Type: denies use, marijuana *Occupational Status:: unemployed Housing: house Household Members: spouse, children *Travel in the last 8 weeks: None - Psychiatric History Pschychiatric History:: Reports:: Anxiety, Bipolar Disorder, Depression Family Hx:: Asthma, Cancer, Coronary Artery Disease, Diabetes, Heart Attack, Hyperlipidemia, Hypertension, Kidney Disease, Stroke, Substance abuse, Alcoholism, Mental illness Para: 1 Review of Systems - Review of Systems Review of systems:: pertinent systems reviewed and negative unless documented below - Constitutional Denies chills, Denies fever(s) - *Gastrointestinal Reports heartburn - *Genitourinary Denies abnormal vaginal bleeding - Psychiatric Reports anxiety Meds Home Medications Medication Instructions Recorded Confirmed Type Prenat 115/Iron Fum/Folic/Dss 1 each PO DAILY 02/14/21 07/28/21 History [ 19 Tablet] Metformin HCl 500 mg PO DAILY 07/28/21 07/28/21 History Allergies Allergy/AdvReac Type Severity Reaction Status Date / Time penicillin G [PENICILLIN G] Allergy Intermediate Hives Verified 07/24/21 08:31 adhesive tape AdvReac Intermediate Blister Verified 07/28/21 05:42 Exam Vital signs and Labs for Last 24 Hours: Temp Pulse Resp BP Pulse Ox 98.7 F 90 16 126/77 99 07/28/21 06:04 07/28/21 06:04 07/28/21 06:04 07/28/21 06:04 07/28/21 06:04 Laboratory Results - last 24 hr 07/28/21 05:00: WBC 16.8 H, RBC 4.43, Hgb 13.4, Hct 41.2, MCV 93.1, MCH 30.2, MCHC 32.4, RDW 14.2, Plt Count 374, MPV 8.6, Neut % (Auto) 75.3, Lymph % (Auto) 19.1, [place] % (Auto) 3.6, Eos % (Auto) 1.3, Baso % (Auto) 0.6, Neut # (Auto) 12.7 H, Lymph # (Auto) 3.2, [place] # (Auto) 0.6, Eos # (Auto) 0.2, Baso # (Auto) 0.1, Total Counted 100, Neutrophils % (Manual) 75, Lymphocytes % (Manual) 20, Monocytes % (Manual) 4, Eosinophils % (Manual) 1, Platelet Estimate Normal, RBC Morphology Normal 07/28/21 05:00: Sodium 136, Potassium 4.1, Chloride 105, Carbon Dioxide 20 L, Anion Gap 15.1 H, BUN 6 L D, Creatinine 0.40 L, Estimated Creat Clear 232, Estimated GFR 200, Est GFR ( Amer) 242 D, Glucose 85, Calcium 9.6 07/28/21 05:00: Urine Color Yellow, Urine Appearance Clear, Urine pH 6.5, Ur Specific [place] 1.020, Urine Protein Negative, Urine Glucose (UA) Negative, Urine Ketones 1+, Urine Blood Negative, Urine Nitrate Negative, Urine Bilirubin Negative, Urine Urobilinogen 0.2, Ur Leukocyte Esterase Negative, Urine RBC None, Urine WBC 3-5, Ur Squamous Epith Cells 3-5, Urine Bacteri
--- NOTE | 2021-07-28 08:52 | HMH.PHAINT ---
MEDICATION RECONCILIATION COMPLETED ON PATIENT USING EXTERNAL FILL HISTORY FROM PHARMACY. -JULIO C BALDWIN, NATALIAD
--- NOTE | 2021-07-28 09:18 | P.PN_ITS ---
[facility] Anesthesia Record Part I Intake, IV Amount: 700 Estimated blood loss (mL): 600 Urine output (mL): 700 Blood Pressure: 139/95 SaO2: 99 Pulse Rate: 79 Respiratory Rate: 18 Temperature: 97.6 F Patient is:: Drowsy Stable to PACU at:: 09:11
--- NOTE | 2021-07-28 10:40 | P.OP_ITS ---
Date of procedure: 07/28/21 Pre-op Diagnosis:: 1. 38 0/7 weeks 2. IUGR 3. Previous C Section Post-op Diagnosis:: same Procedure performed:: Low Transverse C Section Surgeon:: Elida West MD [employer] S[employer] Agent(s):: Sierra Choudhury COMPASS OPERATOR:: Other Anesthesia: spinal Estimated blood loss (mL): 600 Operative findings:: vigorous liveborn male in vertex presentation grossly normal uterus, fallopian tubes and ovaries Operative note:: The patient was taken to the OR and spinal was administered without difficulty. She was prepped and draped in normal sterile fashion. A pfannenstiel skin incision was made with the scalpel and carried down to the fascia. The fascia was incised in the midline and sharply dissected off the rectus muscles. The muscles were in the midline and the peritoneum was entered sharply and extended bluntly. The Cb-O self retaining retractor was placed in the abdomen and a bladder flap was created. The uterus was incised in the lower uterine segment in a transverse fashion and extended bluntly. Amniotomy was performed and clear fluid noted. The infant was delivered in controlled fashion, without complication or shoulder dystocia. The infant was vigorous at and handed to awaiting support staff for evaluation after cord clamped and cut. Cord blood was collected and a cord segment was preserved. The placenta was manually extracted and noted to be intact. The uterus was repaired with 0- vicryl in a running/locked fashion. A second layer was placed for hemostasis. The peritoneum was closed with 2-0 vicryl in a running fashion. The fascia was closed with #1 vicryl in a running fashion. The subcutaneous fat was closed with 2-0 vicryl in an interrupted fashion. The skin was closed with 2-0 stratafix. The patient tolerated the procedure well. Sponge, lap, needle and instrument counts were correct x 2. She was taken to PACU awake and in stable condition. Condition: stable Disposition: PACU Specimens:: placenta Complications:: none
--- NOTE | 2021-07-28 10:51 | SUR.OPER ---
0813-viable infant male born at this time
[2021-07-28 14:13] LABS: Microscopic,Cath URINE MICROSCOPIC (MICROSCOPIC)
[2021-07-28 14:20] LABS: Appearance,Urine/Cath CLEAR (Clear); Bilirubin,Cath Negative (Negative); Blood, Urine/Cath TRACE-I (Negative); Color,Urine/Cath YELLOW (Yellow); Glucose,Urine/Cath (UA) Negative (Negative); Ketones,Urine/Cath TRACE (Negative); Leukocyte Esterase,Cath Negative (Negative); Nitrate,Cath Negative (Negative); PH,Urine/Cath 6.5 (5.0-8.5); Protein,Urine/Cath Negative (Negative); Urobilinogen,Cath 0.2 EU/dl (0.2)
[2021-07-28 14:42] LABS: Squamous Epithelial Ur./Cath Occasional #/hpf (0-5)
[2021-07-29 07:05] LABS: Hemoglobin 10.8 g/dL (12.2-16.2)
[2021-07-29 08:30] VITALS: BP 135/66; PULSE 84; RESP 20; TEMP 36.8; O2SAT 96
--- NOTE | 2021-07-29 12:11 | HMH.DCSUM ---
General - General Admission date:: 07/28/21 Discharge date: 07/29/21 HPI HPI: 20 yo @ 38 0/7 admitted for scheduled elective repeat c section complicated by GDMA2, anxiety, IUGR, tobacco abuse and a history of previous c section with G1 Most recent ultrasound gave EFW 2527gm, which was 10% for gestational age testing has been reassuring and delivery was delayed until 38 weeks because of GDM Medical management for diabetes has been with glucophage, per MFM at Hospital Course Hospital Course: Maternal course uneventful asymptomatic with anemia after surgery tolerating regular diet ambulating and voiding without difficulty lochia appropriate infant is being transferred to for respiratory issues and mother requesting discharge on POD #1 to be with Rhogam Administration: Not Indicated Objective Vital signs: Temp Pulse Resp BP Pulse Ox 98.4 F 75 17 124/61 97 07/28/21 16:50 07/28/21 16:50 07/28/21 16:50 07/28/21 16:50 07/28/21 16:50 Narrative: CONSTITUTIONAL: no acute distress HEENT: mucous membranes moist PULMONARY: breathing unlabored without audible wheezes CV: no tachycardia or visible JVD; normal LE peripheral pulses ABD: soft, ND; appropriately tender but no rebound/guarding : fundus firm at/below umbilicus SKIN: incision well approximated with no drainage, erythema or induration EXT: 1+ edema LEs NEURO: alert/oriented, no altered mental status PSYCH: appropriate mood and demeanor Results Labs on day of discharge: Labs from last 24 hours 07/29/21 07/28/21 06:16 07:50 Hgb 10.8 L Hct 34.0 L Urine Color Yellow Urine Appearance Clear Urine pH 6.5 Ur Specific [place] 1.010 Urine Protein Negative Urine Glucose (UA) Negative Urine Ketones Trace Urine Blood Trace-i Urine Nitrate Negative Urine Bilirubin Negative Urine Urobilinogen 0.2 Ur Leukocyte Esterase Negative Urine RBC None Urine WBC None Ur Squamous Epith Cells Occasional Urine Bacteria None DS: Diagnosis - Discharge Diagnosis (1) 38 weeks gestation of Status: Acute (2) IUGR (intrauterine growth restriction) Status: Acute (3) GDM, class A2 Status: Acute (4) Previous section Status: Acute (5) Tobacco abuse Status: Acute (6) Acute blood loss anemia Status: Acute Discharge Plan - Patient Discharge Instructions ACTIVITY: Continue current activity DIET: regular diet - Follow up Plan Disposition: Home, Self-Care Condition at discharge:: Stable Home Medications: Home Medications Medication Instructions Recorded Confirmed Type Prenat 115/Iron Fum/Folic/Dss 1 each PO DAILY 02/14/21 07/28/21 History [ 19 Tablet] Metformin HCl 500 mg PO DAILY 07/28/21 07/28/21 History Ibuprofen [Motrin 400mg 800 mg PO Q6HP PRN #30 tab 07/29/21 Rx tablet] Oxycodone HCl [OxyIR 5mg tablet] 5 mg PO Q6HP PRN #30 tablet 07/29/21 Rx Prescriptions/Medication Reconciliation: New Acetaminophen [Acetaminophen 325mg tab] 650 mg PO Q4HP PRN tablet PRN Reason: Mild Pain Ibuprofen [Motrin 400mg tablet] 800 mg PO Q6HP PRN #30 tab PRN Reason: Mild To Moderate Pain Oxycodone HCl [OxyIR 5mg tablet] 5 mg PO Q6HP PRN #30 tablet PRN Reason: Moderate Pain Continued Prenat 115/Iron Fum/Folic/Dss [ 19 Tablet] 1 each PO DAILY Discontinued Metformin HCl 500 mg PO DAILY - Problem Reconciliation Problems Reviewed?: Yes
--- NOTE | 2021-07-29 18:36 | P.PN_ITS ---
[facility] Anesthesia Record Part II Discharge Time: 09:42 Destination: Obstetric PACU nurse assessment reviewed?: Yes Patient Condition:: Good Anesthesia Complications:: None none Swallowing reflex intact?: Yes Cyanosis?: No Blood Pressure: 131/88 Pulse Rate: 73 Temperature: 97.3 F Mental Status: Alert & Oriented Pain level:: 0 Nausea and/or vomitting:: None Intake, IV Amount: 0
[2021-07-29 18:42] VITALS: BP 131/88; PULSE 73; TEMP 36.3
[2022-06-17 10:54] LABS: POC Glucose,Bedside 85 (70-110)
== END 2021-07-29 15:26 | disposition home or self-care (01) | DRG 788 ==
PROVIDERS: Admitting Provider Obstetrics & Gynecology; PCP Internal Medicine Adolescent Medicine; Visit Provider Obstetrics & Gynecology
PROC: 10D00Z1 Extraction of Products of Conception, Low, Open Approach (ICD-10-PCS; CPT 59514; principal; 2021-07-28 07:30)
DX: O36.5990 Maternal care for other known or suspected poor fetal growth, unspecified trimester, not applicable or unspecified (principal); Z3A.38 38 weeks gestation of pregnancy; Z37.0 Single live birth; O24.425 Gestational diabetes mellitus in childbirth, controlled by oral hypoglycemic drugs; N85.8 Other specified noninflammatory disorders of uterus; O34.211 Maternal care for low transverse scar from previous cesarean delivery
CPT/HCPCS: 59514; 36415; 59025; 80048; 80053; 80305; 81001; 82962; 85007; 85014; 85018; 85025; 86850; 94761; C9290; C9803; G0283; J2405; U0003; U0005

== ENCOUNTER → 2021-12-11 13:46 | Outpatient (CLI) | payer OTHER, SELFPAY ==
[2021-12-11 15:11] LABS: HCG,Quantitative < 2 mIU/ml (0-5.42)
== END ==
PROVIDERS: PCP Internal Medicine Adolescent Medicine; Visit Provider Obstetrics & Gynecology
DX: Z32.00 Encounter for pregnancy test, result unknown (principal)
CPT/HCPCS: 36415; 84702

== ENCOUNTER 2022-09-17 09:50 | Emergency (ER) | payer OTHER, SELFPAY ==
--- NOTE | 2022-09-17 10:11 | EXP.UTC ---
Discharge Plan Disposition Patient Disposition: Still a Patient Condition: Fair Prescriptions Prescriptions: No Action Nexplanon 68 mg implant subdermal naproxen 500 mg tablet 500 mg PO BID PRN (Reason: pain) Qty: 30 1RF Referrals Follow up/Referrals: Provider,Referral, MD [Primary Care Provider] - See instructions Clinical Impressions Clinical Impression: Abdominal pain Instructions Patient Instructions: DI for Acute Abdominal Pain Discharge ED Provider: Argentina Kelley [facility] General Chief complaint: Abdominal Pain Stated complaint: right side stomach pains,nausea,bodyaches Time Seen by Provider: 09/17/22 10:11 Description of Symptoms (Recalled from Triage Doc. by RN): Patient states that she was feeling a little ache about 3 days ago and having some nausea but no vomiting then 2 days ago she started with severe stomach pain from below naval area that has now moved to right lower quad States that pain has continued to get worse States that she has had some nausea but no vomiting States that last night she almost came to the ED but laid down and when she got up this morning it was worse and hurts worse with movement States that last BM was this morning Related Data Home Medications Medication Instructions Recorded Confirmed etonogestrel 68 mg subdermal subdermal 09/09/22 09/09/22 implant (Nexplanon) Previous Rx's Medication Instructions Recorded naproxen 500 mg tablet 500 mg PO BID PRN pain #30 tabs 04/27/22 Allergies Allergy/AdvReac Type Severity Reaction Status Date / Time penicillin G [PENICILLIN G] Allergy Intermediate Hives Verified 09/17/22 10:16 adhesive tape AdvReac Intermediate Blister Verified 09/17/22 10:16 [facility] Disclaimer: The information contained in this section may have been updated after the patient was seen, as this information can be updated by other users. Surgical History (Updated 09/09/22 @ 14:12 by AMBROSE Baer) Previous section Social History Smoking Status: Current every day smoker tobacco type: cigarettes packs per day: 1 second hand exposure: Yes alcohol intake: never counseling provided: provider counseling substance use type: denies use and marijuana current occupational status: unemployed Travel in the last 8 weeks: None household members: spouse and children housing: house number of children: 1 current occupational exposures/hazards: No caffeine: Yes ROS Obtained: Yes All systems reviewed & no additional complaints except as documented and Yes Systems reviewed as appropriate & no additional complaints except as documented Constitutional Constitutional: Reports system reviewed and no additional complaints, except as documented, Reports as per HPI and Reports body ache ENT Ears, Nose, Mouth, and Throat: Reports system reviewed and no additional complaints, except as documented and Reports as per HPI Cardiovascular Cardiovascular: Reports system reviewed and no additional complaints, except as documented and Reports as per HPI Respiratory Respiratory: Reports system reviewed and no additional complaints, except as documented and Reports as per HPI Gastrointestinal Gastrointestingal: Reports system reviewed and no additional complaints, except as documented, as per HPI, abdominal pain and nausea; Denies vomiting Physical Exam General General appearance: alert and in no apparent distress Respiratory Respiratory exam: Present normal lung sounds bilaterally; Absent respiratory distress or wheezes Cardiovascular Cardiovascular exam: Present regular rate and tachycardia Abdominal Exam Abdominal exam: Present soft and tenderness Abdominal tenderness: Present RLQ and moderate Comment: reports pain just below naval area into right lower quad, reports pain with palpation Neurological Exam Neurological exam: Present alert, oriented X3 and normal g
[2022-09-17 10:13] VITALS: BP 147/84; PULSE 121; RESP 18; TEMP 36.8; O2SAT 98; BMI 25.2
[2022-09-17 10:24] VITALS: BP 139/69; PULSE 112; RESP 17; TEMP 36.9; O2SAT 99; BMI 25.2
[2022-09-17 10:30] VITALS: BP 113/62; PULSE 98; O2SAT 97
[2022-09-17 10:36] LABS: Basophils # 0.1 K/mm3 (0-0.2); Basophils % 1.8 % (0.1-2.0); Eosinophils # 0.2 K/mm3 (0.0-0.4); Eosinophils % 3.3 % (0.1-12.0); Hematocrit 44.6 % (37.0-47.0); Hemoglobin 14.4 g/dL (12.2-16.2); Lymphocytes # 2.1 K/mm3 (0.7-4.5); Lymphocytes % 37.8 % (10-50); Mean Corpuscular HGB Conc 32.3 g/dL (31.8-35.4); Mean Corpuscular Hemoglobin 29.3 pg (27.0-31.2); Mean Corpuscular Volume 90.8 fl (81-99); Mean Platelet Volume 7.9 fl (7.4-10.4); Monocytes # 0.3 K/mm3 (0.1-1.0); Monocytes % 5.2 % (1.7-9.3); Neutrophils # 2.8 K/mm3 (1.8-7.8); Neutrophils % 51.9 % (37.0-80.0); Platelet Count 257 K/mm3 (142-424); Red Blood Count 4.91 M/mm3 (4.20-5.40); Red Cell Distribution Width 13.2 % (11.5-17.5); White Blood Count 5.5 K/mm3 (4.8-10.8)
[2022-09-17 10:45] LABS: Chloride 106 mmol/L (98-107); Potassium 4.2 mmoL/L (3.5-5.1); Sodium 142 mmol/L (136-145)
--- NOTE | 2022-09-17 10:45 | PC.NURSE ---
DR. TORRES AT BEDSIDE
[2022-09-17 10:48] LABS: Alanine Aminotransferase 47 U/L (12-78); Albumin/Globulin Ratio 1.9 (1.1-1.8); Alkaline Phosphatase 79 U/L (38-126); Anion Gap 15.2 mEq/L (5-15); Aspartate Amino Transferase 46 U/L (14-36); Bilirubin,Total 0.7 mg/dl (0.2-1.3); Blood Urea Nitrogen 8 mg/dl (7-17); Carbon Dioxide 25 mmol/L (22.0-30.0); Creatinine Clearance Estimated 119 mL/min (50-200); Estimated Glomerular Filt Rate 89 ml/min (>60); GFR (African American) 108 ML/MIN (>60); Globulin 2.7 g/dL (1.3-3.2); Total Protein,Serum 7.7 g/dl (6.3-8.2)
[2022-09-17 10:49] LABS: Coronavirus 19, PCR Not Detected (NotDetected); Influenza A, PCR Not Detected (NotDetected); Influenza B, PCR Not Detected (NotDetected)
[2022-09-17 10:49] LABS: Calcium 8.8 mg/dl (8.4-10.2); Glucose 131 mg/dl (74-100)
[2022-09-17 10:52] LABS: HCG Qualitative, Serum Negative (Negative)
[2022-09-17 10:53] LABS: Lipase 168 U/L (23-300)
[2022-09-17 11:00] LABS: C-Reactive Protein 19.8 mg/L (0-4)
[2022-09-17 11:01] LABS: Lactic Acid 0.7 mmol/L (0.7-2.1)
--- NOTE | 2022-09-17 11:08 | HMH.EDGENADL ---
Discharge Plan Disposition Patient Disposition: Still a Patient Condition: Fair Prescriptions Prescriptions: No Action Nexplanon 68 mg implant subdermal naproxen 500 mg tablet 500 mg PO BID PRN (Reason: pain) Qty: 30 1RF Referrals Follow up/Referrals: Provider,Referral, [Primary Care Provider] - See instructions Clinical Impressions Clinical Impression: Abdominal pain Instructions Patient Instructions: DI for Acute Abdominal Pain Discharge ED Provider: Argentina Kelley Adult HPI General Chief complaint: Abdominal Pain Stated complaint: right side stomach pains,nausea,bodyaches Time Seen by Provider: 09/17/22 10:11 Mode of Arrival: Ambulatory Limitations: No Limitations Description of Symptoms (Recalled from ER Triage Doc. by RN): PT SENT FROM [facility] FOR FURTHER EVALUATION OF RIGHT SIDED ABDOMINAL PAIN AND PAIN UNDER UMBILICUS X 2 DAYS. BODYACHES X 3 DAYS History of Present Illness HPI narrative: This is a 21-year-old female with history of cholecystectomy, multiple sections who is otherwise healthy presenting with abdominal pain. Patient states that abdominal pain is been going on for 3 days. Pain is periumbilical and right lower quadrant. Does not radiate. Pain is associated with nonbilious, nonbloody vomiting and intermittent diarrhea that is nonbloody. Patient has not had fevers, chills, chest pain, shortness of breath, diaphoresis, neurologic deficits, but has had associated cramping lower back pain bilaterally. Denies dysuria or hematuria. The only thing that makes it better is position and lying on her side, nothing in particular makes it worse. Related Data Home Medications Medication Instructions Recorded Confirmed etonogestrel 68 mg subdermal subdermal 09/09/22 09/09/22 implant (Nexplanon) Previous Rx's Medication Instructions Recorded naproxen 500 mg tablet 500 mg PO BID PRN pain #30 tabs 04/27/22 Allergies Allergy/AdvReac Type Severity Reaction Status Date / Time penicillin G [PENICILLIN G] Allergy Intermediate Hives Verified 09/17/22 10:16 adhesive tape AdvReac Intermediate Blister Verified 09/17/22 10:16 [facility] Disclaimer: The information contained in this section may have been updated after the patient was seen, as this information can be updated by other users. Surgical History (Updated 09/09/22 @ 14:12 by AMBROSE Baer) Previous section Social History Smoking Status: Current every day smoker tobacco type: cigarettes packs per day: 1 second hand exposure: Yes alcohol intake: never counseling provided: provider counseling substance use type: denies use and marijuana current occupational status: unemployed Travel in the last 8 weeks: None household members: spouse and children housing: house number of children: 1 current occupational exposures/hazards: No caffeine: Yes ROS Obtained: Yes All systems reviewed & no additional complaints except as documented Physical Exam General General appearance: alert and in no apparent distress Head Head exam: atraumatic, normocephalic and normal inspection Eye Eye exam: Present normal appearance, PERRL and EOMI ENT ENT exam: Present normal exam, normal oropharynx, mucous membranes moist, TM's normal bilaterally and normal external ear exam Neck Neck exam: Present normal inspection, full ROM and trachea midline; Absent meningismus or lymphadenopathy Chest Chest inspection: Present normal inspection and symmetric chest wall rise; Absent tenderness Respiratory Respiratory exam: Present normal lung sounds bilaterally; Absent respiratory distress Cardiovascular Cardiovascular exam: Present regular rate and normal rhythm; Absent JVD Abdominal Exam Abdominal exam: Present soft, tenderness, normal bowel sounds and tenderness at [place]Bur[place]'s Point; Absent distention, guarding, rebound, rigidity, psoas sign
--- NOTE | 2022-09-17 11:13 | US_ITS ---
FINAL REPORT CLINICAL HISTORY: RLQ pain, negative labs. histotry of cysts FINDINGS: Transvaginal sonographic images of the pelvis were obtained. The uterus measures 6.9 x 5.0 x 3.4 cm. The endometrium measures 7 mm, which is within normal limits. There are multiple echogenic foci in the endometrium which may represent calcifications without a well-defined mass. The right ovary measures 3.8 cm in length and left ovary measures 2.4 cm in length. Normal blood flow seen to the ovaries. There are small follicles in the left ovary. There are multiple follicles in the right ovary. There is a small amount of free fluid which may be physiologic or reactive. IMPRESSION: Multiple echogenic foci in the endometrium may represent calcifications without a well-defined mass. Small amount of free fluid may be physiologic or reactive. Reviewed, Interpreted and Dictated by Balaji Saab III, MD Transcribed by Lisa Escobar Authenticated and . [facility]
[2022-09-17 11:53] LABS: Microscopic, Urine URINE MICROSCOPIC (MICROSCOPIC)
[2022-09-17 11:55] LABS: Appearance,Urine CLEAR (Clear); Bilirubin,Urine Negative (Negative); Blood, Urine Negative (Negative); Color,Urine YELLOW (Yellow); Glucose,Urine (UA) Negative (Negative); Ketones,Urine Negative (Negative); Leukocyte Esterase,Urine Negative (Negative); Nitrate,Urine Negative (Negative); Protein,Urine Negative (Negative)
[2022-09-17 12:07] LABS: WBC,Urine Occasional #/hpf (0-3)
[2022-09-17 12:08] LABS: Bacteria,Urine Trace /lpf; Mucus,Urine 1+ /lpf
--- NOTE | 2022-09-17 12:28 | PC.NURSE ---
PT RETURNED FROM [facility]
[2022-09-17 13:05] VITALS: BP 100/55; PULSE 85; RESP 17; TEMP 36.8; O2SAT 98
== END 2022-09-17 13:05 | disposition still patient (30) ==
LOC: UTC 10:17 → ER 10:19
PROVIDERS: Emergency Medicine; Emergency Provider Nurse Practitioner
DX: R10.13 Epigastric pain (principal); R10.31 Right lower quadrant pain; R11.0 Nausea; R00.0 Tachycardia, unspecified; M79.10 Myalgia, unspecified site; R19.7 Diarrhea, unspecified; Z20.822 Contact with and (suspected) exposure to COVID-19; M54.50 Low back pain, unspecified; F17.210 Nicotine dependence, cigarettes, uncomplicated; Z88.0 Allergy status to penicillin; Z91.048 Other nonmedicinal substance allergy status
CPT/HCPCS: 76830; 80053; 81001; 83605; 83690; 84703; 85025; 86140; 96374; 96375; 99284; C9803; U0003; U0005

== ENCOUNTER → 2022-10-06 09:53 | Outpatient (CLI) | payer OTHER, SELFPAY ==
[2022-10-06 11:04] LABS: Hemoglobin A1C 5.8 % (4.0-6.0)
[2022-10-06 11:18] LABS: Thyroid Stimulating Hormone 2.83 uIU/mL (0.465-4.68)
[2022-10-06 11:53] LABS: Vitamin B12 751 pg/mL (239-931)
[2022-10-06 11:54] LABS: Folate 4.18 ng/mL
[2022-10-09 22:43] LABS: Antinuclear Antibodies (ANA) NEGATIVE
== END ==
PROVIDERS: PCP Internal Medicine Adolescent Medicine; Referring Provider Obstetrics & Gynecology; Visit Provider Nurse Practitioner Family
DX: M25.551 Pain in right hip (principal); M25.552 Pain in left hip; R20.0 Anesthesia of skin; R20.2 Paresthesia of skin; R73.9 Hyperglycemia, unspecified
CPT/HCPCS: 36415; 82607; 82746; 83036; 84443; 86038

== ENCOUNTER 2023-04-12 13:58 | Emergency (ER) | payer OTHER, SELFPAY ==
[2023-04-12 13:59] VITALS: BP 128/85; PULSE 115; RESP 18; TEMP 36.6; O2SAT 95; BMI 24.9
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
[2023-04-12 14:57] LABS: UTC Pregnancy Test, Urine Negative (Negative)
[2023-04-12 16:18] VITALS: BP 128/85; PULSE 115; RESP 18; TEMP 36.6; O2SAT 95
== END 2023-04-12 16:19 | disposition home or self-care (01) ==
PROVIDERS: Emergency Provider Nurse Practitioner Family; PCP Internal Medicine Adolescent Medicine
DX: M54.42 Lumbago with sciatica, left side (principal); F17.210 Nicotine dependence, cigarettes, uncomplicated
CPT/HCPCS: 72100; 73502; 73552; 81025; 99212; 99214; G0463

== ENCOUNTER 2023-05-02 01:46 | Emergency (ER) | payer OTHER, SELFPAY ==
[2023-05-02 01:48] VITALS: BP 118/73; PULSE 78; RESP 20; TEMP 36.8; O2SAT 98; BMI 22.4
[2023-05-02 02:37] LABS: Basophils # 0.1 K/mm3 (0-0.2); Basophils % 0.4 % (0.1-2.0); Eosinophils # 0.4 K/mm3 (0.0-0.4); Eosinophils % 2.9 % (0.1-12.0); Hematocrit 39.6 % (37.0-47.0); Hemoglobin 12.8 g/dL (12.2-16.2); Lymphocytes # 3.2 K/mm3 (0.7-4.5); Lymphocytes % 26.3 % (10-50); Mean Corpuscular HGB Conc 32.2 g/dL (31.8-35.4); Mean Corpuscular Hemoglobin 28.4 pg (27.0-31.2); Mean Corpuscular Volume 88.3 fl (81-99); Monocytes # 0.5 K/mm3 (0.1-1.0); Monocytes % 4.3 % (1.7-9.3); Neutrophils % 66.1 % (37.0-80.0); Platelet Count 224 K/mm3 (142-424); Red Blood Count 4.49 M/mm3 (4.20-5.40); Red Cell Distribution Width 13.1 % (11.5-17.5); White Blood Count 12.2 K/mm3 (4.8-10.8)
[2023-05-02 02:46] LABS: Activated Partial Thrombo Time 27.5 seconds (22.8-30.6); INR 1.11 (0.9-1.1); Prothrombin Time 11.9 seconds (10.1-12.5)
[2023-05-02 02:47] LABS: HCG Qualitative, Serum Negative (Negative)
[2023-05-02 02:50] LABS: Alanine Aminotransferase 28 U/L (12-78); Albumin Level 4.8 g/dl (3.5-5.0); Albumin/Globulin Ratio 1.8 (1.1-1.8); Alkaline Phosphatase 71 U/L (38-126); Anion Gap 14.4 mEq/L (5-15); Aspartate Amino Transferase 28 U/L (14-36); Bilirubin,Total 0.5 mg/dl (0.2-1.3); Blood Urea Nitrogen 11 mg/dl (7-17); Calcium 8.7 mg/dl (8.4-10.2); Carbon Dioxide 22 mmol/L (22.0-30.0); Chloride 109 mmol/L (98-107); Creatinine Clearance Estimated 120 mL/min (50-200); Estimated Glomerular Filt Rate 103 ml/min (>60); GFR (African American) 124 ML/MIN (>60); Globulin 2.7 g/dL (1.3-3.2); Glucose 102 mg/dl (74-100); Potassium 3.4 mmoL/L (3.5-5.1); Sodium 142 mmol/L (136-145); Total Protein,Serum 7.5 g/dl (6.3-8.2)
[2023-05-02 03:07] LABS: T4 (Thyroxine) 12.8 ug/dl (5.53-11.0)
--- NOTE | 2023-05-02 03:09 | HMH.EDGENADL ---
Discharge Plan Disposition Patient Disposition: Home, Self-Care Condition: Good Prescriptions Prescriptions: No Action ibuprofen [IBU] 800 mg tablet 800 mg PO Q8HP PRN (Reason: Moderate Pain) Qty: 30 0RF Referrals Follow up/Referrals: Kahlil Ling MD [Primary Care Provider] - See instructions Activity Restrictions/Add. Instructions Additional Instructions/Restrictions: Please follow-up with your [employer] for further evaluation of your persistent vaginal bleeding. Please follow-up with your primary care provider or therapist for further evaluation of your anxiety/stress/depression. Please return to the emergency department if you develop any new or worsening symptoms or become concerned for your health. Clinical Impressions Clinical Impression: Abnormal vaginal bleeding, Anxiety, Abnormal weight loss Discharge ED Provider: Addison Marquis General Adult HPI General Chief complaint: Vaginal Bleeding Stated complaint: Heavy bleeding,stomach pain,vomiting,migraine Time Seen by Provider: 05/02/23 02:05 Mode of Arrival: Ambulatory Source of Information: Patient Limitations: No Limitations Description of Symptoms (Recalled from ER Triage Doc. by RN): Pt presents with multiple complaints that she believes to be caused from increased stress at home. Irregular mentrual cycle that has been ongoing for 1 month now, large clots and heavy flow, panic attacks, nausea with episodes of vomitting, chest pressure, and decreased appetite. Pt denies any SI/HI and was on anxiety medication as a teen. History of Present Illness HPI narrative: 22-year-old female history of anxiety, depression, reported panic disorder presents with approximately 1 month of weight loss and persistent vaginal bleeding. She reports that she feels like she has been on her period for approximately 1 month. She reports some spotting and clotting on a daily basis. She reports that she has had approximately 20 pound weight loss over the last month. She reports that her anxiety and stress have been excessive recently because of everything . She specifically denies any suicidal homicidal ideation. She reports that she is not afraid for the health or safety of herself or her children. She reports that she is generally nauseous and food makes her want to throw up. Patient is sexually active. Has a Nexplanon. Related Data Previous Rx's Medication Instructions Recorded ibuprofen 800 mg tablet (IBU) 800 mg PO Q8HP PRN Moderate Pain 04/12/23 #30 tabs Allergies Allergy/AdvReac Type Severity Reaction Status Date / Time penicillin G [PENICILLIN G] Allergy Intermediate Hives Verified 10/05/22 08:55 adhesive tape AdvReac Intermediate Blister Verified 10/05/22 08:55 [facility] Disclaimer: The information contained in this section may have been updated after the patient was seen, as this information can be updated by other users. Surgical History Previous section Social History Smoking Status: Current every day smoker tobacco type: cigarettes packs per day: 1 second hand exposure: No alcohol intake: never substance use type: denies use, former substance user and marijuana current occupational status: other Travel in the last 8 weeks: None household members: spouse and children housing: house marital status: number of children: 2 current occupational exposures/hazards: No caffeine: Yes ROS Obtained: Yes All systems reviewed & no additional complaints except as documented Physical Exam General General appearance: alert and anxious Head Head exam: atraumatic and normocephalic Eye Eye exam: Present normal appearance, PERRL and EOMI ENT ENT exam: Present normal oropharynx and normal external ear exam Neck Neck exam: Present normal inspection and full ROM Chest Chest inspection: Present normal inspection and
[2023-05-02 03:11] VITALS: BP 123/84; PULSE 77; RESP 18; TEMP 36.8; O2SAT 99
[2023-05-02 03:21] LABS: Thyroid Stimulating Hormone 1.95 uIU/mL (0.465-4.68)
== END 2023-05-02 03:14 | disposition home or self-care (01) ==
PROVIDERS: Emergency Provider Emergency Medicine; PCP Internal Medicine Adolescent Medicine
DX: N93.9 Abnormal uterine and vaginal bleeding, unspecified (principal); R63.4 Abnormal weight loss; R11.2 Nausea with vomiting, unspecified; F41.9 Anxiety disorder, unspecified; F32.A Depression, unspecified; F17.210 Nicotine dependence, cigarettes, uncomplicated
CPT/HCPCS: 80053; 84436; 84443; 84703; 85025; 85610; 85730; 99285

== ENCOUNTER 2023-05-26 08:37 | Emergency (ER) | payer OTHER, SELFPAY ==
[2023-05-26 08:40] VITALS: BP 141/72; PULSE 98; RESP 19; TEMP 36.7; O2SAT 100; BMI 23.0
--- NOTE | 2023-05-26 09:13 | EXP.UTC ---
Discharge Plan Disposition Patient Disposition: Home, Self-Care Condition: Good Prescriptions Prescriptions: No Action ibuprofen [IBU] 800 mg tablet 800 mg PO Q8HP PRN (Reason: Moderate Pain) Qty: 30 0RF Referrals Follow up/Referrals: Kahlil Ling MD [Primary Care Provider] - See instructions Activity Restrictions/Add. Instructions Additional Instructions/Restrictions: GO home take two benadryl and lay down as discussed Follow up with your Family Doctor if migraines continue for further evaluation and medication discussions Return if needed Straight to ER if any worsening of migraine or worse migraine of your life Clinical Impressions Clinical Impression: Migraine Qualifiers: Migraine type: unspecified Status migrainosus presence: without status migrainosus Intractability: not intractable Qualified Code(s): G43.909 - Migraine, unspecified, not intractable, without status migrainosus Stand Alone Forms Stand Alone Forms: Work/School Release Instructions Patient Instructions: Migraine -- Adult Discharge ED Provider: Argentina Kelley [facility] [place] HPI General Stated complaint: headache X 4 days, nausea, achey Mode of Arrival: Ambulatory Source of Information: Patient Limitations: No Limitations Time Seen by Provider: 05/26/23 09:13 Description of Symptoms (Recalled from Triage Doc. by RN): PATIENT C/O MIGRAINE X 4 DAYS, BODY ACHES, NAUSEA, STOMACH ACHE AND LIGHT-HEADED HEENT Symptoms (Recalled from RN notes): Yes Resp Symptoms (Recalled from RN notes): No Skin Symptoms (Recalled from RN notes): No MS Symptoms (Recalled from RN notes): No Functional Status (Recalled from RN notes): WNL History of Present Illness Provider Complaint: Patient states that she started with migraine headache about 4 days ago and the first day she felt a little light headed and light hurt her eyes but that is better States that now she is just having the migraine and bodyaches and nausea States that she has had migraines in the past and this is like others she has had States that she normally takes Ibuprofen for them but it hasnt helped this time it keeps coming back States that it will get better with the ibuprofen then it comes back as soon as it wears off so today she was suppose to work and she went but had to leave States that she hasnt taken anything today for it Related Data Previous Rx's Medication Instructions Recorded ibuprofen 800 mg tablet (IBU) 800 mg PO Q8HP PRN Moderate Pain 04/12/23 #30 tabs Allergies Allergy/AdvReac Type Severity Reaction Status Date / Time penicillin G [PENICILLIN G] Allergy Intermediate Hives Verified 10/05/22 08:55 adhesive tape AdvReac Intermediate Blister Verified 10/05/22 08:55 Worker's Comp Is this a Worker's Comp case?: No [facility] Disclaimer: The information contained in this section may have been updated after the patient was seen, as this information can be updated by other users. Medical History (Updated 05/26/23 @ 09:45 by Argentina Kelley APRN) Anxiety Depression Surgical History (Updated 05/26/23 @ 09:03 by Gely Elliott RN) History of cholecystectomy History of tonsillectomy History of tympanostomy tube placement Previous section Social History Smoking Status: Current every day smoker tobacco type: cigarettes packs per day: 1 second hand exposure: No alcohol intake: never substance use type: denies use, former substance user and marijuana current occupational status: other Travel in the last 8 weeks: None household members: spouse and children housing: house marital status: number of children: 2 current occupational exposures/hazards: No caffeine: Yes ROS Obtained: Yes All systems reviewed & no additional complaints except as documented and Yes Systems reviewed as appropriate & no additional complaints except as documented Constitutional Constitutional: Reports syst
[2023-05-26 09:34] LABS: UTC Pregnancy Test, Urine Negative (Negative)
[2023-05-26 10:11] VITALS: BP 141/72; PULSE 98; RESP 19; TEMP 36.7; O2SAT 100
== END 2023-05-26 10:16 | disposition home or self-care (01) ==
PROVIDERS: Emergency Provider Nurse Practitioner; PCP Internal Medicine Adolescent Medicine
DX: G43.909 Migraine, unspecified, not intractable, without status migrainosus (principal); F17.210 Nicotine dependence, cigarettes, uncomplicated; F41.9 Anxiety disorder, unspecified; F32.A Depression, unspecified
CPT/HCPCS: 81025; 96372; 99212; 99214; G0463

== ENCOUNTER 2023-12-30 16:32 | Emergency (ER) | payer SELFPAY ==
[2023-12-30 16:45] VITALS: BP 146/83; PULSE 94; RESP 19; TEMP 36.9; O2SAT 99; BMI 24.7
[2023-12-30 17:02] LABS: Color,Urine Dark Yellow (Yellow)
[2023-12-30 17:03] LABS: Apearance,Urine Cloudy (Clear); Bilirubin,Urine Negative (Negative); Blood, Urine Trace (Negative); Glucose,Urine (UA) Negative (Negative); Ketones,Urine Negative (Negative); Protein,Urine Negative (Negative); Specific Gravity, Urine 1.025 (1.005-1.030); UTC Leukocyte Esterase,Urine Negative (Negative); UTC Nitrate,Urine Positive (Negative); UTC Pregnancy Test, Urine Negative (Negative); Urobilinogen,Urine 0.2 EU/dl (0.2)
--- NOTE | 2023-12-30 17:18 | ED_ITS ---
Discharge Plan Disposition Patient Disposition: Home, Self-Care Condition: Good Prescriptions Prescriptions: New nitrofurantoin monohyd/m-cryst [Macrobid] 100 mg capsule 100 mg PO Q12H 7 Days Qty: 14 0RF Rx Instructions: must administer with a meal/food No Action ibuprofen [IBU] 800 mg tablet 800 mg PO Q8HP PRN (Reason: Moderate Pain) Qty: 30 0RF Referrals Follow up/Referrals: Provider,Referral, MD [Primary Care Provider] - See instructions Activity Restrictions/Add. Instructions Additional Instructions/Restrictions: *Increase fluids. Water not Soda or Tea *Start antibiotic immediately and be sure to take as ordered for the FULL length of time although you should start to see improvement over the next 48 hours *Be SURE to follow up anytime for new or worsening symptoms with your family doctor. AND in 48 hours for urine culture results with your family doctor, if you do not have a doctor then you may call back to the [facility] for urine culture results and further treatment. We do recommend that you choose and establish care with a Primary Care Physician. ?AND follow up with them ?in 10-14 days to repeat UA to ensure infection is resolved and blood no longer present *Be sure to let your PCP know that we sent urine cultures from the [facility] so they can follow up to ensure that you area the on the correct antibiotic Call your doctor office and make appointment for 48 hours (2 days from today) ?to follow up and get the results of your urine culture and further treatment Clinical Impressions Clinical Impression: UTI (urinary tract infection) Instructions Patient Instructions: DI for Urinary Tract Infection (UTI), Urinary Tract Infection Discharge ED Provider: Argentina Kelley [facility] [place] HPI General Stated complaint: foul smelling urine, lower right side back pain Mode of Arrival: Ambulatory Source of Information: Patient Limitations: No Limitations Time Seen by Provider: 12/30/23 17:18 Description of Symptoms (Recalled from Triage Doc. by RN): PATIENT REPORTS STRONG SMELL TO URINE X 5 MONTHS. DENIES ANY OTHER SYMPTOMS HEENT Symptoms (Recalled from RN notes): No Resp Symptoms (Recalled from RN notes): No Skin Symptoms (Recalled from RN notes): No MS Symptoms (Recalled from RN notes): No Functional Status (Recalled from RN notes): WNL History of Present Illness Provider Complaint: Pt states that she has been having strong smelling urine on and off for several months but for last little bit she has been having achy like feeling in her back but her back always hurts so not sure if it is a UTI or not States that she has took some of the OTC UTI medication but it hasnt helped so she came in today to get checked worried she may have a UTI Denies fever, Denies abdominal pain Denies chills or body aches Related Data Previous Rx's Medication Instructions Recorded ibuprofen 800 mg tablet (IBU) 800 mg PO Q8HP PRN Moderate Pain 04/12/23 #30 tabs nitrofurantoin 100 mg PO Q12H 7 days #14 caps 12/30/23 monohydrate/macrocrystals 100 mg capsule (Macrobid) Allergies Allergy/AdvReac Type Severity Reaction Status Date / Time penicillin G [PENICILLIN G] Allergy Intermediate Hives Verified 10/05/22 08:55 adhesive tape AdvReac Intermediate Blister Verified 10/05/22 08:55 Worker's Comp Is this a Worker's Comp case?: No [facility] Disclaimer: The information contained in this section may have been updated after the patient was seen, as this information can be updated by other users. Medical History (Updated 12/30/23 @ 17:34 by Argentina Kelley APRN) Depression Anxiety Surgical History (Updated 05/26/23 @ 09:03 by Gely Elliott RN) History of tympanostomy tube placement History of tonsillectomy History of cholecystectomy Previous section Social History Smoking Status: Current every day smoker tobacco type: cigarettes packs per day: 1 second hand exposure: No alcohol intake: never substance use type: denies use, former substance user and marijuana current occupational status: other Travel in the last 8 weeks: None household members: spouse and children housing: house marital status: number of children: 2 current occupational exposures/hazards: No caffeine: Yes ROS Obtained: Yes All systems reviewed & no additional complaints except as documented and Yes Systems reviewed as appropriate & no additional complaints except as documented Constitutional Constitutional: Reports system reviewed and no additional complaints, except as documented, Reports as per HPI, Denies body ache, Denies chills and Denies fever(s) ENT Ears, Nose, Mouth, and Throat: Reports system reviewed and no additional complaints, except as documented and Reports as per HPI Cardiovascular Cardiovascular: Reports system reviewed and no additional complaints, except as documented and Reports as per HPI Respiratory Respiratory: Reports system reviewed and no additional complaints, except as documented and Reports as per HPI Gastrointestinal Gastrointestingal: Reports system reviewed and no additional complaints, except as documented and as per HPI; Denies abdominal pain Genitourinary Female Genitourinary: Reports system reviewed and no additional complaints, exce pt as documented, Reports as per HPI, Reports dysuria (on and off), Reports urinary frequency, Denies vaginal pruritus and Reports other (strong smelling urine) Physical Exam General General appearance: alert and in no apparent distress ENT ENT exam: Present mucous membranes moist Respiratory Respiratory exam: Present normal lung sounds bilaterally; Absent respiratory distress or wheezes Cardiovascular Cardiovascular exam: Present regular rate, normal rhythm and normal heart sounds Abdominal Exam Abdominal exam: Present soft and normal bowel sounds; Absent distention or tenderness Neurological Exam Neurological exam: Present alert, oriented X3 and normal gait Medical Decision Making Naun Inquiry Pt receiving controlled substance: No Naun was queried for this patient: No Vital Signs: 12/30/23 16:45 Temperature 98.4 F Temperature Source Oral Pulse Rate [Left Brachial] 94 H Respiratory Rate 19 Blood Pressure [Left Arm] 146/83 H Blood Pressure Mean [Left Arm] 104 Blood Pressure Source [Left Arm] Automatic Cuff Blood Pressure Position [Left Arm] Sitting 02 Sat by Pulse Oximetry 99 Oxygen Delivery Method Room Air Lab Data Lab results reviewed: Yes I reviewed the patient's lab results. Lab Results 12/30/23 16:43: Urine Color Dark yellow, Urine Appearance Cloudy, Urine pH 7.0, Ur Specific [place] 1.025, Urine Protein Negative, Urine Glucose (UA) Negative, Urine Ketones Negative, Urine Blood Trace, Urine Nitrate Positive A, Urine Bilirubin Negative, Urine Urobilinogen 0.2, Ur Leukocyte Esterase Negative, Tst Clinic Negative Orders (Tests/Meds): ORDERS Category Date Time Status Urine Culture Stat Micro 12/30/23 17:02 Ordered
[2023-12-30 17:35] VITALS: BP 146/83; PULSE 94; RESP 19; TEMP 36.9; O2SAT 99
== END 2023-12-30 17:37 | disposition home or self-care (01) ==
PROVIDERS: Emergency Provider Nurse Practitioner
DX: N39.0 Urinary tract infection, site not specified (principal); B96.29 Other Escherichia coli [E. coli] as the cause of diseases classified elsewhere; M54.59 Other low back pain; F17.210 Nicotine dependence, cigarettes, uncomplicated
CPT/HCPCS: 81003; 81025; 87086; 99212; 99214; G0463

== ENCOUNTER 2024-03-06 14:51 | Emergency (ER) | payer SELFPAY ==
[2024-03-06 15:00] VITALS: BP 107/68; PULSE 110; RESP 20; TEMP 36.9; O2SAT 98; BMI 25.9
--- NOTE | 2024-03-06 15:14 | PC.NURSE ---
PATIENT SOAKING LACERATION AREA IN HIBICLENSE AND STERILE WATER AT THIS TIME
--- NOTE | 2024-03-06 15:19 | EXP.UTC ---
Discharge Plan Disposition Patient Disposition: Home, Self-Care Condition: Good Referrals Follow up/Referrals: Provider,Referral, MD [Primary Care Provider] - See instructions Activity Restrictions/Add. Instructions Additional Instructions/Restrictions: Keep site clean and dry. Keep finger straight so as not to open wound. Clinical Impressions Clinical Impression: Laceration of thumb Qualifiers: Encounter type: initial encounter Damage to nail status: without damage Foreign body presence: with foreign body Laterality: right Qualified Code(s): S61.021A - Laceration with foreign body of right thumb without damage to nail, initial encounter Stand Alone Forms Stand Alone Forms: Work/School Release Instructions Patient Instructions: DI for Laceration Repair-Skin Glue Discharge ED Provider: [facility] [place] HPI General Stated complaint: cut on right hand Mode of Arrival: Ambulatory Source of Information: Patient Limitations: No Limitations Time Seen by Provider: 03/06/24 15:19 Description of Symptoms (Recalled from Triage Doc. by RN): PATIENT C/O LACERATION TO RIGHT THUMB THIS AFTERNOON. 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 PATIENT STATES SHE IS UP TO DATE ON TDAP HEENT Symptoms (Recalled from RN notes): No Resp Symptoms (Recalled from RN notes): No Skin Symptoms (Recalled from RN notes): Yes MS Symptoms (Recalled from RN notes): No Functional Status (Recalled from RN notes): WNL History of Present Illness Provider Complaint: PATIENT C/O LACERATION TO RIGHT THUMB THIS AFTERNOON. 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 PATIENT STATES SHE IS UP TO DATE ON TDAP Related Data Allergies Allergy/AdvReac Type Severity Reaction Status Date / Time penicillin G [PENICILLIN G] Allergy Intermediate Hives Verified 10/05/22 08:55 adhesive tape AdvReac Intermediate Blister Verified 10/05/22 08:55 Worker's Comp Is this a Worker's Comp case?: No [facility] Disclaimer: The information contained in this section may have been updated after the patient was seen, as this information can be updated by other users. Medical History (Updated 03/06/24 @ 15:44 by Mell Sánchez APRN) Depression Anxiety Surgical History (Updated 05/26/23 @ 09:03 by Gely Elliott RN) History of tympanostomy tube placement History of tonsillectomy History of cholecystectomy Previous section Social History Smoking Status: Current every day smoker tobacco type: cigarettes packs per day: 1 second hand exposure: No alcohol intake: never substance use type: denies use, former substance user and marijuana current occupational status: other Travel in the last 8 weeks: None household members: spouse and children housing: house marital status: number of children: 2 current occupational exposures/hazards: No caffeine: Yes ROS Obtained: Yes All systems reviewed & no additional complaints except as documented Constitutional Constitutional: Reports system reviewed and no additional complaints, except as documented Eyes Eyes: Reports system reviewed and no additional complaints, except as documented ENT Ears, Nose, Mouth, and Throat: Reports system reviewed and no additional complaints, except as documented Cardiovascular Cardiovascular: Reports system reviewed and no additional complaints, except as documented Respiratory Respiratory: Reports system reviewed and no additional complaints, except as documented Gastrointestinal Gastrointestingal: Reports system reviewed and no additional complaints, except as documented Genitourinary Female Genitourinary: Reports system reviewed and no additional complaints, except as documented Musculoskeletal Musculoskeletal: Reports system reviewed and no additional complaints, except as documented Integumentary/Breasts Skin/Breast: Reports system reviewed and no additional complaints, except as documented and Reports wounds Comments: cut right thumb Endocrine Endocrine: Reports system reviewed and no additional complaints, except as documented Allergic/Immunologic Allergic/Immunologic: Reports system reviewed and no additional complaints, except as documented Physical Exam General General appearance: alert and in no apparent distress Head Head exam: atraumatic Eye Eye exam: Present normal appearance ENT ENT exam: Present normal exam Neck Neck exam: Present normal inspection Chest Chest inspection: Present normal inspection and symmetric chest wall rise Respiratory Respiratory exam: Present normal lung sounds bilaterally Cardiovascular Cardiovascular exam: Present regular rate, normal rhythm and normal heart sounds Abdominal Exam Abdominal exam: Present soft and normal bowel sounds Extremities Exam Extremities exam: Present normal inspection Back Exam Back exam: Present normal inspection Neurological Exam Neurological exam: Present alert and oriented X3 Psychiatric Psychiatric exam: Present normal affect and normal mood Skin Skin exam: Present other Expanded Skin Exam Type of lesion: Present laceration Distribution: RUE Comment: 1/2 inch laceration at the base of right knuckle. Lymphatic Lymphatic Findings: no adenopathy Medical Decision Making Naun Inquiry Pt receiving controlled substance: No Naun was queried for this patient: No Vital Signs: 03/06/24 15:00 Temperature 98.4 F Temperature Source Oral Pulse Rate [Left Brachial] 110 H Respiratory Rate 20 Blood Pressure [Left Arm] 107/68 L Blood Pressure Mean [Left Arm] 81 Blood Pressure Source [Left Arm] Automatic Cuff Blood Pressure Position [Left Arm] Sitting 02 Sat by Pulse Oximetry 98 Oxygen Delivery Method Room Air Procedures Laceration Laceration 1: Site: thumb Size (cm): 1.5 Description: linear Depth: simple, single layer Pre-repair: irrigated extensively Skin layer closed with: Dermabond
[2024-03-06 15:41] VITALS: BP 107/68; PULSE 110; RESP 20; TEMP 36.9; O2SAT 98
--- NOTE | 2024-03-06 15:58 | PC.NURSE ---
THUMB SPLINT GIVEN TO PATIENT
== END 2024-03-06 15:48 | disposition home or self-care (01) ==
PROVIDERS: Emergency Provider Nurse Practitioner Family
DX: S61.411A Laceration without foreign body of right hand, initial encounter (principal); W26.8XXA Contact with other sharp object(s), not elsewhere classified, initial encounter; F17.210 Nicotine dependence, cigarettes, uncomplicated
CPT/HCPCS: 12011; 99213; 99214; G0463

== ENCOUNTER 2024-08-03 10:55 | Outpatient (CLI) | payer OTHER, SELFPAY | END 2024-08-03 23:59 | disposition home or self-care (01) | LOC: LAB.DROPOF 08-06 10:58 | PROVIDERS: PCP Student in an Organized Health Care Education/Training Program; Visit Provider Student in an Organized Health Care Education/Training Program | DX: R39.9 Unspecified symptoms and signs involving the genitourinary system (principal) | CPT/HCPCS: 87086; 87088; 87186 ==

== ENCOUNTER 2025-04-30 11:13 | Outpatient (CLI) | payer OTHER, SELFPAY ==
--- OUTSIDE RECORDS SUMMARY | 2024-12-22 17:30 | XMS_ITS ---
Author Organization [facility] Address [address] [facility] [address] [place] [address] Care Team Providers Care Mri Specialist Name Role Phone Jeffery Nieves Primary Care Provider [phone] JEFFERY Nieves APRN Unavailable Unavailable Migration, Provider Unavailable Unavailable Allergies Allergen (clinical drug ingredient) Drug/Non Drug Allergy documented on EMR Reaction Allergy Type Onset Date Status Penicillin hives Drug Allergy Active [facility] Conversion Encounter Medications Medication SIG (Take, Route, Frequency, Duration) Notes Start Date End Date Status Nexplanon 68 MG 1 ea subcutaneously once; Duration: 1 dose(s) Active SUMAtriptan Succinate 100 MG 1 tab(s) orally once a day PRN; Duration: 30 days 06/02/2023 Active Qulipta 60 MG 1 tab(s) orally once a day; Duration: 30 days 06/02/2023 Active Encounters Encounter Location Date Provider Diagnosis [facility] [address] [place] [address] [facility] [address] [place], [place] [address] 12/22/2024 Provider Migration Migraines G43.909 Assessments Encounter Date Diagnosis (ICD Code) Assessment Notes Treatment Notes Treatment Clinical Notes Section Notes 12/22/2024 Migraines (ICD-10 - G43.909) Plan Of Treatment Medication Medication Name Sig Start Date Stop Date Notes SUMAtriptan Succinate 100 MG 1 tab(s) or ally once a day PRN; Duration: 30 days 06/02/2023 Qulipta 60 MG 1 tab(s) orally once a day; Duration: 30 days 06/02/2023 Progress Notes * Shannen RONQUILLOeDOB: 9 (24 yo F)Acc No.[id number]:12/22/2024 Patient: Paige DELGADO Provider: Nelly Erazo :2000 A ge:24 Y S ex:Female Date:12/22/2024 Address:[address] [place] [address] [address] , [place], [id number] Pcp:Jeffery Nieves Subjective: * Chief Complaints: * 1 . [facility] To Medispan Conversion Encounter. * Medical History: * Medications: T aking Nexplanon 68 MG Implant 1 ea subcutaneously once * Allergies: P enicillin: hives. Objective: * Vitals: Assessment: * Assessment: [facility]. [facility] - G43.909 (Primary) Plan: * Treatment: * * Electronic signature of Prov ider Migration on 04/30/2025 at 11:15 AM EDT Sign off status: Pending * Provider: Nelly Erazo Date: 0 12/22/2024 Generated for Melchor alvarez/Earle/Vinaysmitting on: 0 04/30/2025 11:15 AM EDT
--- OUTSIDE RECORDS SUMMARY | 2025-04-30 11:15 | XMS_ITS | Patient Health Record ---
Author Organization [facility] Address [address] [facility] [address] [place] [address] Care Team Providers Care Quarter Backer Name Role Phone Jeffery Nieves Primary Care Provider [phone] JEFFERY Nieves APRN Unavailable Unavailable Migration, Provider Unavailable Unavailable Allergies Allergen (clinical drug ingredient) Drug/Non Drug Allergy documented on EMR Reaction Allergy Type Onset Date Status Penicillin hives Drug Allergy Active Reason For Referral No Information Medications Medication SIG (Take, Route, Frequency, Duration) Notes Start Date End Date Status Nexplanon 68 MG 1 ea subcutaneously once; Duration: 1 dose(s) Active SUMAtriptan Succinate 100 MG 1 tab(s) orally once a day PRN; Duration: 30 days 06/02/2023 Active Qulipta 60 MG 1 tab(s) orally once a day; Duration: 30 days 06/02/2023 Active Social History Tobacco Use: Social History Observation Description Date Details (start date - stop date) Former Smoker NA - NA Smoking: Question Answer Notes Are you a: former smoker How long has it been since you last smoked? 1-3 months Problems Problem Type SNOMED Code ICD Code Onset Dates Problem Status W/U Status Risk Notes Problem Acute sinusitis (46909535) Acute sinusitis NOS (461.9) Active confirmed Problem Generalized anxiety disorder (67843997) Generalized anxiety disorder (F41.1) Active confirmed Problem Functional dyspepsia (4717946) Functional dyspepsia (K30) Active confirmed Problem migraine (disorder) (52071097) Migraines (G43.909) Active confirmed Problem Amenorrhea (86200605) Amenorrhea (N91.2) Active confirmed Problem Dysfunctional uterine bleeding (54995221043397) Dysfunctional uterine bleeding (N93.8) Active confirmed Problem Irritable bowel syndrome characterized by constipation (231362937) Irritable bowel syndrome with constipation (K58.1) Active confirmed Encounters Encounter Location Date Provider Diagnosis [facility] [address] [place] [address] 12/22/2024 Provider Migration Migraines G43.909 Assessments Encounter Date Diagnosis (ICD Code) Assessment Notes Treatment Notes Treatment Clinical Notes Section Notes 12/22/2024 Migraines (ICD-10 - G43.909) Plan Of Treatment Pending Test Test Name Order Date Venous Doppler : Lower Extremity 021 Physical Therapy 11/01/2019 Insurance Providers Payer Name Payer Address Payer Phone Subscriber Number Group Number Insured Name Patient Relationship to Insured Coverage Start Date Coverage End Date [employer] [facility] [address] [address] [place] [address] [id number] Paige Cowan Self - patient is the insured Medical (General) History Medical History History ICD Code chronic back pain EGD 06/08 with reflux esophagitis Gestational diabetes Surgical History Surgery Date(Month/Year) tonsillectomy and adnoids removed 1999 2017 dental gallbladder removal 02/2020 C-scope secondary to BRBPR w ith hemorrhoid ablation. Diminutive hyperplastic sigmoid polyp 05/2020 Hospitalization History Reason Date(Month/Year) dehydration 1998 gallbladder removal 02/2020
--- OUTSIDE RECORDS SUMMARY | 2025-04-30 11:15 | XMS_ITS | Clinical Summary ---
Author Organization [facility] Address [address] [place] [address] Care Team Providers Care Document Control Clerk Name Role Phone Unavailable Primary Care Provider Unavailabl e Allergies Active Allergy Reactions Criticality Noted Date Comments Penicillin G Hives Medium 12/19/2016 Medications Frzlus-D6-N7-B12 -D3-FA (PRENA1 PO) Take by mouth. Active metFORMIN (Glucophage) 500 MG tabletIndication s:Supervision of high risk in third trimester Take 1 tablet (500 mg total) by mouth every night. 30 tablet 3 05/21/2021 Active Active Problems Problem Noted Date Diagnosed Date Supervision of high risk in third trim carolin 05/22/2021 Assessment & Plan (05/22/2021 12:55 PM EDT): Routine care with low risk OB Consult for GDM management Declines COVID vaccine, counseled Planning for R C/S and BTL with her low risk OB Gestational diabetes mellitu s in childbirth, controlled by oral hypoglycemic drugs 05/22/2021 Assessment & Plan (05/22/2021 12:55 PM EDT): Failed 1 hour and 3 hour GTT Glucose levels mostly within range, fasting levels are elevated Will start on 500 mg Metformin at bedtime Telehealth appt for diabetic education Encouraged high protein snack prior to bed Continue to log sugars Family History Medical History Relation Name Comments Diabetes Father Migraines Father Hypertension Mother Migraines Mother Relation Name Status Comments Father Mother Social History Tobacco Use Types Packs/Day Years Used Date Smoking Tobacco: Every Day Cigarettes 1 20 Smokeless Tobacco: Never Alcohol Use Standard Drinks/Week Comments Never 0 (1 standard drink = 0.6 oz pur e alcohol) Comments No Sex and Gender Information Value Date Recorded Sex Assigned at Not on file Legal Sex Female 8:32 PM EDT Gender Identity Not on file Sexual Orientation Not on file Last Filed Vital Signs Vital Sign Reading Time Taken Comments Blood Pressure 119/76 05/21/2021 3:00 PM EDT Pulse - - Temperature - - Respiratory Rate - - Oxygen Saturation - - Inhaled Oxygen Concentration - - Weight 68.2 kg (150 lb 5.7 oz) 05/21/2021 3:00 P M EDT Height 162.6 cm (5' 4 ) 05/21/2021 3:00 PM EDT Body Mass Index 25.81 05/21/2021 3:00 PM EDT Plan of Treatment Health Maintenance Due Date Last Done Comments [facility]-Depression Screening 1998 [facility]-/Child/Adol SDOH Screenings 1998 [facility]-Varicella Vaccines (1 of 2 - 13+ 2-dose series) 11/27/2011 HPV Vaccines (1 - 3-dose series) 2013 [facility]- SDOH Screenings 2016 [facility]-Adult SDOH Screenings 2016 [facility]-DTaP,Tdap,and Td Vaccine s (1 - Tdap) 2017 [facility]-Hepatitis B Vaccines (1 of 3 - 19+ 3-dose series) 2017 [facility]-Pap Smear 11/27/2019 [id number] Vaccine (1 - 20 24-25 season) 2024 [facility]-Influenza Vaccine (#1) 2025 [facility]-Zoster Vaccines (1 of 2) 2048 [facility]-HIB Vaccines Aged Out No longer e ligible based on patient's age to complete this topic [facility]-Hepatitis A Vaccines Aged Out No longer eligible based on patient's age to complete this topic [facility]-IPV Vaccines Aged Out No longer e ligible based on patient's age to complete this topic [facility]-Pneumococcal Vaccine: Pediatrics (0 to 5 Years) and At-Risk Patients (6 to 49 Years) Aged Out No long er eligible based on patient's age to complete this topic [facility]-Rotavirus Vaccines Aged Out No lo nger eligible based on patient's age to complete this topic Insurance [address] [place], [place] [id number] [place] [address] MEDICAID [facility] MEDICAID
== END 2025-04-30 23:59 | disposition home or self-care (01) ==
LOC: LAB 11:13
PROVIDERS: Visit Provider Obstetrics & Gynecology
DX: Z32.01 Encounter for pregnancy test, result positive (principal); N92.6 Irregular menstruation, unspecified
CPT/HCPCS: 36415; 84144; 84702

== ENCOUNTER 2025-05-22 11:11 | Outpatient (CLI) | payer OTHER, SELFPAY ==
--- OUTSIDE RECORDS SUMMARY | 2024-12-22 17:30 | XMS_ITS ---
Author Organization [facility] Address [address] [facility] [address] [place] [address] Care Team Providers Care Grades 1 6 Tutor Name Role Phone Jeffery Nieves Primary Care Provider JEFFERY Nieves APRN Unavailable Unavailable Migration, Provider Unavailable Unavailable Allergies Allergen (clinical drug ingredient) Drug/Non Drug Allergy documented on EMR Reaction Allergy Type Onset Date Status Penicillin hives Drug Allergy Active [facility] Conversion Encounter Medications Medication SIG (Take, Route, [...] [facility] [address] [place] [address] [facility] [address] [place], [place] [address] 12/22/2024 Provider Migration Migraines G43.909 Assessments Encounter [...] * Shannen RONQUILLOeDOB: 9 (24 yo F)Acc No.[id number]:12/22/2024 Patient: Paige DELGADO Provider: Nelly Erazo :2000 A ge:24 Y S ex:Female Date:12/22/2024 Address:[address] [place] [address] [address] , [place], [id number] Pcp:Jeffery Nieves Subjective: * Chief Complaints: * 1 . Multum To Medispan Conversion Encounter. * Medical History: * Medications: T aking Nexplanon 68 MG Implant 1 ea subcutaneously once * Allergies: P enicillin: hives. Objective: * Vitals: Assessment: * Assessment: [facility] G43.909 (Primary) Plan: * Treatment: * * Electronic signature of Prov ider Migration on 05/22/2025 at 11:34 AM EDT Sign off status: Pending * Provider: Nelly Erazo Date: 0 12/22/2024 Generated for Melchor alvarez/Earle/Vinaysmitting on: 0 05/22/2025 11:34 AM EDT
--- OUTSIDE RECORDS SUMMARY | 2025-05-22 11:34 | XMS_ITS | Clinical Summary ---
Author Organization [facility] Address [address] [place] [address] Care Team Providers Care Shotgun Shell Assembly Machine Operator Name Role Phone Unavailable Primary Care Provider Unavailabl e Allergies Active Allergy Reactions Criticality Noted Date Comments Penicillin G Hives Medium 12/19/2016 Medications Vmwltb-C6-L1-B12 -D3-FA (PRENA1 PO) Take by mouth. Active [...] 19+ 3-dose series) 2017 [facility]-Pap Smear 11/27/2019 [id number] Vaccine (1 - 20 24-25 season) 2024 [...] age to complete this topic Insurance 2 [place], [place] [id number] [place] [address] MEDICAID [facility] MEDICAID
--- OUTSIDE RECORDS SUMMARY | 2025-05-22 11:35 | XMS_ITS | Patient Health Record ---
Author Organization [facility] Address [address] [facility] [address] [place] [address] Care Team Providers Care Executive Advisor Name Role Phone Jeffery Nieves Primary Care [...] Problem Status W/U Status Risk Notes Problem Information temporarily unavailable Acute sinusitis NOS (461.9) Active confirmed Problem Information temporarily unavailable Generalized anxiety disorder (F41.1) Active confirmed Problem Information temporarily unavailable Functional dyspepsia (K30) Active confirmed Problem Information temporarily unavailable Migraines (G43.909) Active confirmed Problem Information temporarily unavailable Amenorrhea (N91.2) Active confirmed Problem Information temporarily unavailable Dysfunctional uterine bleeding (N93.8) Active confirmed Problem Information temporarily unavailable Irritable bowel syndrome with constipation (K58.1) Active confirmed Encounters Encounter Location Date Provider Diagnosis [facility] [address] [place] [address] 12/22/2024 Provider Migration Migraines G43.909 Assessments Encounter [...] Coverage Start Date Coverage End Date [employer] [facility] [address] [address] [place] [phone] [id number] Paige Cowan Self - patient is the [...]
== END 2025-05-22 23:59 | disposition home or self-care (01) ==
LOC: LAB 11:12
PROVIDERS: Visit Provider Obstetrics & Gynecology
DX: Z34.90 Encounter for supervision of normal pregnancy, unspecified, unspecified trimester (principal); Z3A.00 Weeks of gestation of pregnancy not specified
CPT/HCPCS: 36415; 84144; 84702

== ENCOUNTER 2025-07-15 12:07 | Outpatient (CLI) | payer OTHER, SELFPAY ==
--- OUTSIDE RECORDS SUMMARY | 2024-12-22 17:30 | XMS_ITS ---
Author Organization [facility] Address [address] [facility] [address] [place] [address] Care Team Providers Care Bag Mender Name Role Phone Jeffery Nieves Primary Care Provider JEFFERY Nieves APRN Unavailable Unavailable Migration, Provider Unavailable Unavailable Allergies Allergen (clinical drug ingredient) Drug/Non Drug Allergy documented on EMR Reaction Allergy Type Onset Date Status Penicillin hives Drug Allergy Active [facility] Conversion Encounter Medications Medication SIG (Take, Route, [...] [facility] [address] [facility] [address] [place], [place] [address] 12/22/2024 Provider Migration Migraines G43.909 Assessments Encounter [...] * Shannen RONQUILLOeDOB: 9 (24 yo F)Acc No.[id number]:12/22/2024 Patient: Paige DLEGADO Provider: Nelly Erazo :2000 A ge:24 Y S ex:Female Date:12/22/2024 Address:[address] [place] [address] [address] , [place], [id number] Pcp:Jeffery Nieves Subjective: * Chief Complaints: * 1 . Multum To Medispan Conversion Encounter. * Medical History: * Medications: T aking Nexplanon 68 MG Implant 1 ea subcutaneously once * Allergies: P enicillin: hives. Objective: * Vitals: Assessment: * Assessment: [facility]. [facility] - G43.909 (Primary) Plan: * Treatment: * * Electronic signature of Prov ider Migration on 07/15/2025 at 12:10 PM EDT Sign off status: Pending * Provider: Nelly Erazo Date: 0 12/22/2024 Generated for Melchor alvarez/Earle/eTrafaelsmitting on: 1 12:10 PM EDT
--- OUTSIDE RECORDS SUMMARY | 2025-07-15 12:10 | XMS_ITS | Clinical Summary ---
Author Organization [facility] Address [address] [place] [address] Care Team Providers Care Production Operations Engineer Name Role Phone Unavailable Primary Care Provider Unavailabl e Allergies Active Allergy Reactions Criticality Noted Date Comments Penicillin G Hives Medium 12/19/2016 Medications Auglqt-Y5-I1-B12 -D3-FA (PRENA1 PO) Take by mouth. Active metFORMIN (Glucophage) 500 MG tabletIndication s:Supervision of high risk in third trimester Take 1 tablet (500 mg total) by mouth every night. 30 tablet 3 05/21/2021 Active Active Problems Problem Noted Date Diagnosed Date Gestational diabetes mellitu s in childbirth, controlled by oral hypoglycemic drugs 05/22/2021 Assessment & Plan (05/22/2021 12:55 PM EDT): Failed 1 hour and 3 hour GTT Glucose levels mostly within range, fasting levels are elevated Will start on 500 mg Metformin at bedtime Telehealth appt for diabetic education Encouraged high protein snack prior to bed Continue to log sugars Resolved Problems Problem Noted Date Diagnosed Date Resolved Date Supervision of high risk pre gnancy in third trimester 05/22/2021 06/09/2025 Assessment & Plan (05/22/2021 12:55 PM EDT): Routine care with low risk OB Consult for GDM management Declines COVID vaccine, counseled Planning for R C/S and BTL with her low risk OB Family History Medical History Relation Name Comments Diabetes Father Migraines Father Hypertension Mother Migraines Mother Relation Name Status Comments Father Mother Social History Tobacco Use Types Packs/Day Years Used Date Smoking Tobacco: Every Day Cigarettes 1 20 Smokeless Tobacco: Never Alcohol Use Standard Drinks/Week Comments Never 0 (1 standard drink = 0.6 oz pur e alcohol) Comments Unknown Sex and Gender Information Value Date Recorded [...] Date Last Done Comments [facility]-Depression Screening 1998 [facility]-Infant/Child/Adol SDOH Screenings 1998 [facility]-Varicella Vaccines (1 of 2 - 13+ 2-dose series) 11/27/2011 HPV Vaccines (1 - 3-dose series) 2013 [facility]- SDOH Screenings 2016 [facility]-Adult SDOH Screenings 2016 [facility]-DTaP,Tdap,and Td Vaccine s (1 - Tdap) 2017 [facility]-Hepatitis B Vaccines (1 of 3 - 19+ 3-dose series) 2017 [facility]-Pap Smear 11/27/2019 [id number] Vaccine (1 - 20 24-25 season) 2025 [facility]-Influenza Vaccine (#1) 2025 [facility]-Zoster Vaccines (1 [...] patient's age to complete this topic [place] [address] [address] [place] [address] MEDICAID [facility] MEDICAID
--- OUTSIDE RECORDS SUMMARY | 2025-07-15 12:11 | XMS_ITS | Patient Health Record ---
Author Organization [facility] Address [address] [facility] [address] [place] [address] Care Team Providers Care Mold Runner Name Role Phone Jeffery Nieves Primary Care [...] W/U Status Risk Notes Problem Acute sinusitis (89291574) Acute sinusitis NOS (461.9) Active confirmed Problem Generalized anxiety disorder (96467735) Generalized anxiety disorder (F41.1) Active confirmed Problem Functional dyspepsia (8501215) Functional dyspepsia (K30) Active confirmed Problem migraine (disorder) (74785695) Migraines (G43.909) Active confirmed Problem Amenorrhea (31031426) Amenorrhea (N91.2) Active confirmed Problem Dysfunctional uterine bleeding (98619382089420) Dysfunctional uterine bleeding (N93.8) Active confirmed Problem Irritable bowel syndrome characterized by constipation (772935279) Irritable bowel syndrome with constipation (K58.1) Active confirmed Encounters Encounter Location Date Provider Diagnosis [facility] [address] [place] [address] 12/22/2024 Provider Migration Migraines G43.909 Assessments Encounter [...] Coverage Start Date Coverage End Date [employer] [facility] [place] [address] [address] [place] [address] [id number] Paige Cowan Self - patient is the [...]
== END 2025-07-15 23:59 | disposition home or self-care (01) ==
LOC: LAB 12:08
PROVIDERS: Visit Provider Obstetrics & Gynecology
DX: Z34.90 Encounter for supervision of normal pregnancy, unspecified, unspecified trimester (principal); Z3A.00 Weeks of gestation of pregnancy not specified
CPT/HCPCS: 36415; 84702

== ENCOUNTER 2025-08-05 09:22 | Outpatient (CLI) | payer OTHER, SELFPAY ==
--- OUTSIDE RECORDS SUMMARY | 2025-08-05 12:08 | XMS_ITS | Clinical Summary ---
Author Organization [facility] Address [address] 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 Active [...] 19+ 3-dose series) 2017 [facility]-Pap Smear 11/27/2019 [id number] Vaccine (1 - 20 25-26 season) 2025 [facility]-Influenza Vaccine (#1) 2025 [facility]-Zoster [...] patient's age to complete this topic [place] [address] [place] [address] MEDICAID [facility] MEDICAID
== END 2025-08-05 23:59 | disposition home or self-care (01) ==
LOC: LAB 09:23
PROVIDERS: Visit Provider Obstetrics & Gynecology
DX: Z31.9 Encounter for procreative management, unspecified (principal)
CPT/HCPCS: 36415; 84144